=== PATIENT | male | born 1960 | race Caucasian/White ===

== ENCOUNTER → 2017-01-12 | Outpatient (CLI) | payer MEDICARE, BC ==
[2017-01-12 08:50] LABS: Basophils % (A) 1 %; CH 31.8; Eosinophils # (A) 0.1 k/uL (0-0.7); Eosinophils % (A) 2 %; HCT 41.7 % (39.0-53.0); HDW 3.01; HGB 13.8 gm/dL (13.0-17.5); Luc # (Auto) 0.12; Luc % (Auto) 2; Lymphocytes # (A) 1.2 k/uL (1.0-4.8); Lymphocytes % (A) 24 %; MCH 31.3 pg (25.0-35.0); MCHC 33.2 g/dL (31.0-37.0); MCV 94.3 fL (80.0-100.0); Mean Platelet Volume 8.3; Monocytes # (A) 0.3 k/uL (0-1.0); Monocytes % (A) 6 %; Neutrophils # (A) 3.2 k/uL (1.3-7.7); Neutrophils % (A) 64 %; RBC 4.42 m/uL (4.30-5.90); RDW 15.3 % (11.5-15.5)
[2017-01-12 09:36] LABS: Appearance,Urine Clear (Clear); Bilirubin,Urine Negative (Negative); Glucose,Urine (UA) Negative (Negative); Ketones,Urine Negative (Negative); Leukocyte Esterase,Urine Negative (Negative); Mucus,Urine Rare /hpf; Nitrite,Urine Negative (Negative); Particle Count 612; Protein,Urine 1+ (Negative); RBC,Urine <1 /hpf (0-5); Specific Gravity,Urine 1.009 (1.001-1.035); UA Billing (MACRO vs. MICRO) MICRO; Urobilinogen,Urine <2.0 mg/dL (<2.0); WBC,Urine <1 /hpf (0-5)
[2017-01-12 11:26] LABS: Calcium 9.8 mg/dL (8.4-10.2); Magnesium 1.8 mg/dL (1.6-2.3); Phosphorous 4.4 mg/dL (2.5-4.5); Potassium 4.7 mmol/L (3.5-5.1); Uric Acid 5.5 mg/dL (3.5-8.5)
[2017-01-12 11:37] LABS: % Iron Saturation 33.5 % (20-50)
== END | disposition home or self-care (01) ==
LOC: LABWHC1 07:34
PROVIDERS: ATTEND Internal Medicine Nephrology
DX: N18.4 Chronic kidney disease, stage 4 (severe) (principal); D63.1 Anemia in chronic kidney disease; E55.9 Vitamin D deficiency, unspecified; E21.3 Hyperparathyroidism, unspecified; M10.9 Gout, unspecified; N39.0 Urinary tract infection, site not specified
CPT/HCPCS: 36415; 80048; 81001; 82306; 82728; 83540; 83550; 83735; 83970; 84100; 84550; 85025

== ENCOUNTER → 2017-07-24 | Outpatient (CLI) | payer MEDICARE, BC ==
[2017-07-24 09:15] LABS: Basophils % (A) 0 %; Eosinophils # (A) 0.2 k/uL (0-0.7); Eosinophils % (A) 3 %; HCT 44.4 % (39.0-53.0); HGB 14.1 gm/dL (13.0-17.5); Lymphocytes # (A) 1.1 k/uL (1.0-4.8); Lymphocytes % (A) 18 %; MCH 30.3 pg (25.0-35.0); MCHC 31.6 g/dL (31.0-37.0); MCV 95.8 fL (80.0-100.0); Mean Platelet Volume 7.6; Monocytes # (A) 0.3 k/uL (0-1.0); Monocytes % (A) 5 %; Neutrophils # (A) 4.2 k/uL (1.3-7.7); Neutrophils % (A) 72 %; Platelet Count 156 k/uL (150-450); RBC 4.64 m/uL (4.30-5.90); RDW 14.2 % (11.5-15.5); WBC 5.9 k/uL (3.8-10.6)
[2017-07-24 09:30] LABS: Calcium 10.5 mg/dL (8.4-10.2); Magnesium 1.7 mg/dL (1.6-2.3); Phosphorus 4.5 mg/dL (2.5-4.5); Potassium 5.3 mmol/L (3.5-5.1)
[2017-07-24 09:37] LABS: Appearance,Urine Clear (Clear); Bilirubin,Urine Negative (Negative); Blood,Urine Negative (Negative); Color,Urine Light Yellow; Glucose,Urine (UA) Negative (Negative); Ketones,Urine Negative (Negative); Leukocyte Esterase,Urine Negative (Negative); Nitrite,Urine Negative (Negative); Protein,Urine 1+ (Negative); Specific Gravity,Urine 1.006 (1.001-1.035); Urobilinogen,Urine <2.0 mg/dL (<2.0)
[2017-07-24 11:59] LABS: Collection Time,Urine 24 hrs; Total Volume 24 Hour,Urine 2050 mls (800-1800)
[2017-07-24 13:36] LABS: Total Protein 24 Hour,Urine 2973 mg/24hr (42.0-225.0)
[2017-07-24 16:24] LABS: Iron Saturation 25.91 (15.00-50.00)
[2017-07-24 16:33] LABS: Vitamin D 25 Hydroxy 36.8 ng/mL (30.0-100.0)
[2017-07-24 16:46] LABS: Parathyroid Hormone Intact 29.8 pg/mL (14.0-72.0)
== END | disposition home or self-care (01) ==
LOC: LABWHC1 08:34
PROVIDERS: ATTEND Internal Medicine Nephrology
DX: E55.9 Vitamin D deficiency, unspecified (principal); E21.3 Hyperparathyroidism, unspecified; M10.9 Gout, unspecified; N18.4 Chronic kidney disease, stage 4 (severe); D63.1 Anemia in chronic kidney disease; R80.9 Proteinuria, unspecified
CPT/HCPCS: 36415; 80048; 81001; 81050; 82306; 82728; 83540; 83550; 83735; 83970; 84100; 84156; 84550; 85025

== ENCOUNTER → 2017-08-31 | Outpatient (CLI) | payer MEDICARE, BC ==
[2017-08-31 08:56] LABS: Calcium 9.5 mg/dL (8.4-10.2); Potassium 4.9 mmol/L (3.5-5.1)
== END | disposition home or self-care (01) ==
LOC: LABWHC1 07:45
PROVIDERS: ATTEND Internal Medicine Nephrology
DX: N18.4 Chronic kidney disease, stage 4 (severe) (principal)
CPT/HCPCS: 36415; 80048

== ENCOUNTER → 2017-10-23 | Outpatient (CLI) | payer MEDICARE, BC ==
[2017-10-23 08:26] LABS: Basophils % (A) 1 %; Eosinophils # (A) 0.2 k/uL (0-0.7); Eosinophils % (A) 3 %; HGB 13.2 gm/dL (13.0-17.5); Lymphocytes % (A) 19 %; MCH 30.5 pg (25.0-35.0); MCHC 33.9 g/dL (31.0-37.0); MCV 89.8 fL (80.0-100.0); Mean Platelet Volume 7.7; Monocytes # (A) 0.3 k/uL (0-1.0); Monocytes % (A) 5 %; Neutrophils # (A) 3.7 k/uL (1.3-7.7); Neutrophils % (A) 70 %; Platelet Count 163 k/uL (150-450); RBC 4.34 m/uL (4.30-5.90); RDW 14.7 % (11.5-15.5); WBC 5.3 k/uL (3.8-10.6)
[2017-10-23 08:42] LABS: Appearance,Urine Clear (Clear); Bilirubin,Urine Negative (Negative); Blood,Urine Negative (Negative); Color,Urine Light Yellow; Glucose,Urine (UA) Negative (Negative); Ketones,Urine Negative (Negative); Leukocyte Esterase,Urine Negative (Negative); Mucus,Urine Rare /hpf; Nitrite,Urine Negative (Negative); PH, Urine 6.5 (5.0-8.0); Protein,Urine 2+ (Negative); RBC,Urine 1 /hpf (0-5); Specific Gravity,Urine 1.009 (1.001-1.035); Urobilinogen,Urine <2.0 mg/dL (<2.0)
[2017-10-23 08:47] LABS: Albumin 3.9 g/dL (3.5-5.0); Calcium 9.3 mg/dL (8.4-10.2); Phosphorus 3.7 mg/dL (2.5-4.5); Potassium 5.1 mmol/L (3.5-5.1); Uric Acid 5.4 mg/dL (3.5-8.5)
[2017-10-23 16:18] LABS: Iron Saturation 25.74 (15.00-50.00)
[2017-10-23 16:27] LABS: Vitamin D 25 Hydroxy 36.6 ng/mL (30.0-100.0)
[2017-10-23 18:50] LABS: Hemoglobin A1C 6.8 % (4.0-6.0)
== END | disposition home or self-care (01) ==
LOC: LABWHC1 07:54
PROVIDERS: ATTEND Internal Medicine Nephrology
DX: M10.9 Gout, unspecified (principal); D64.9 Anemia, unspecified; E55.9 Vitamin D deficiency, unspecified; E11.40 Type 2 diabetes mellitus with diabetic neuropathy, unspecified; E11.22 Type 2 diabetes mellitus with diabetic chronic kidney disease; N18.4 Chronic kidney disease, stage 4 (severe)
CPT/HCPCS: 36415; 80048; 81001; 82040; 82306; 82728; 83036; 83540; 83550; 83735; 83970; 84100; 84443; 84550; 85025

== ENCOUNTER → 2018-03-08 | Outpatient (CLI) | payer MEDICARE, BC ==
[2018-03-08 10:31] LABS: Appearance,Urine Clear (Clear); Bilirubin,Urine Negative (Negative); Blood,Urine Negative (Negative); Color,Urine Light Yellow; Glucose,Urine (UA) Negative (Negative); Ketones,Urine Negative (Negative); Leukocyte Esterase,Urine Negative (Negative); Mucus,Urine Rare /hpf; Nitrite,Urine Negative (Negative); Protein,Urine 2+ (Negative); RBC,Urine <1 /hpf (0-5); Specific Gravity,Urine 1.008 (1.001-1.035); Urobilinogen,Urine <2.0 mg/dL (<2.0); WBC,Urine <1 /hpf (0-5)
[2018-03-08 10:42] LABS: Basophils % (A) 1 %; Calcium 9.6 mg/dL (8.4-10.2); Eosinophils # (A) 0.2 k/uL (0-0.7); Eosinophils % (A) 4 %; HCT 44.1 % (39.0-53.0); Lymphocytes # (A) 0.9 k/uL (1.0-4.8); Lymphocytes % (A) 17 %; MCH 29.6 pg (25.0-35.0); MCHC 31.7 g/dL (31.0-37.0); MCV 93.4 fL (80.0-100.0); Mean Platelet Volume 7.7; Monocytes # (A) 0.3 k/uL (0-1.0); Monocytes % (A) 5 %; Neutrophils % (A) 73 %; Platelet Count 146 k/uL (150-450); RBC 4.71 m/uL (4.30-5.90); RDW 14.7 % (11.5-15.5); Uric Acid 5.9 mg/dL (3.5-8.5); WBC 5.6 k/uL (3.8-10.6)
[2018-03-08 16:19] LABS: Iron Saturation 31.37 (15.00-50.00)
[2018-03-08 16:26] LABS: Vitamin D 25 Hydroxy 29.8 ng/mL (30.0-100.0)
== END | disposition home or self-care (01) ==
LOC: LABWHC1 09:07
PROVIDERS: ATTEND Internal Medicine
DX: N39.0 Urinary tract infection, site not specified (principal); N18.3 Chronic kidney disease, stage 3 (moderate); D63.1 Anemia in chronic kidney disease; M10.9 Gout, unspecified; N25.81 Secondary hyperparathyroidism of renal origin
CPT/HCPCS: 36415; 80048; 81001; 82040; 82306; 82728; 83540; 83550; 83735; 83970; 84100; 84550; 85025

== ENCOUNTER → 2018-07-13 | Outpatient (CLI) | payer MEDICARE, BC ==
[2018-07-13 11:24] LABS: Basophils % (A) 0 %; Eosinophils # (A) 0.1 k/uL (0-0.7); Eosinophils % (A) 2 %; HCT 44.7 % (39.0-53.0); HGB 14.7 gm/dL (13.0-17.5); Lymphocytes # (A) 0.9 k/uL (1.0-4.8); Lymphocytes % (A) 14 %; MCH 30.6 pg (25.0-35.0); MCHC 32.9 g/dL (31.0-37.0); MCV 92.9 fL (80.0-100.0); Mean Platelet Volume 7.7; Monocytes # (A) 0.3 k/uL (0-1.0); Monocytes % (A) 5 %; Neutrophils # (A) 4.7 k/uL (1.3-7.7); Neutrophils % (A) 76 %; Platelet Count 167 k/uL (150-450); RBC 4.81 m/uL (4.30-5.90); RDW 14.4 % (11.5-15.5); WBC 6.2 k/uL (3.8-10.6)
[2018-07-13 12:04] LABS: Appearance,Urine Clear (Clear); Bilirubin,Urine Negative (Negative); Blood,Urine Trace (Negative); Color,Urine Yellow; Glucose,Urine (UA) 1+ (Negative); Granular Casts,Urine 3 /lpf (0); Ketones,Urine Negative (Negative); Leukocyte Esterase,Urine Negative (Negative); Mucus,Urine Rare /hpf; Nitrite,Urine Negative (Negative); Protein,Urine 3+ (Negative); RBC,Urine 1 /hpf (0-5); Specific Gravity,Urine 1.011 (1.001-1.035); Sperm,Urine Rare /hpf; Urobilinogen,Urine <2.0 mg/dL (<2.0); WBC,Urine 1 /hpf (0-5)
[2018-07-13 16:26] LABS: Phosphorus 3.5 mg/dL (2.4-5.1)
[2018-07-13 16:34] LABS: Iron Saturation 25.78 (15.00-50.00)
[2018-07-13 16:37] LABS: Anion Gap 10.7 mmol/L (4.00-12.00); Calcium 9.4 mg/dL (8.7-10.3); Carbon Dioxide 22.3 mmol/L (21.6-31.8); Potassium 4.7 mmol/L (3.5-5.5)
[2018-07-13 16:38] LABS: Albumin 4.3 g/dL (3.80-4.90); Magnesium 1.9 mg/dL (1.5-2.4)
[2018-07-13 16:43] LABS: Vitamin D 25 Hydroxy 25.7 ng/mL (30.0-100.0)
[2018-07-13 16:49] LABS: Parathyroid Hormone Intact 179.9 pg/mL (14.0-72.0)
[2018-07-14 02:58] LABS: Creatinine,Urine Random 66.2 mg/dL
[2018-07-14 04:11] LABS: Total Protein,Urine Random 362.7 mg/dL (0.0-13.5)
== END | disposition home or self-care (01) ==
LOC: LABWHC1 10:44
PROVIDERS: ATTEND Internal Medicine Nephrology
DX: N18.3 Chronic kidney disease, stage 3 (moderate) (principal); D63.1 Anemia in chronic kidney disease; N39.0 Urinary tract infection, site not specified; M10.9 Gout, unspecified; E55.9 Vitamin D deficiency, unspecified; N25.81 Secondary hyperparathyroidism of renal origin
CPT/HCPCS: 36415; 80048; 81001; 82040; 82306; 82570; 82728; 83540; 83550; 83735; 83970; 84100; 84156; 84550; 85025

== ENCOUNTER → 2018-10-13 | Outpatient (CLI) | payer MEDICARE, BC ==
[2018-10-13 12:08] LABS: Basophils % (A) 0 %; Eosinophils # (A) 0.2 k/uL (0-0.7); Eosinophils % (A) 3 %; HCT 41.7 % (39.0-53.0); HGB 13.7 gm/dL (13.0-17.5); Lymphocytes % (A) 16 %; MCH 30.7 pg (25.0-35.0); MCHC 32.8 g/dL (31.0-37.0); MCV 93.5 fL (80.0-100.0); Mean Platelet Volume 7.4; Monocytes # (A) 0.3 k/uL (0-1.0); Monocytes % (A) 5 %; Neutrophils # (A) 4.6 k/uL (1.3-7.7); Neutrophils % (A) 74 %; Platelet Count 177 k/uL (150-450); RBC 4.46 m/uL (4.30-5.90); RDW 14.6 % (11.5-15.5); WBC 6.3 k/uL (3.8-10.6)
[2018-10-13 12:48] LABS: Appearance,Urine Clear (Clear); Bacteria,Urine Rare /hpf; Bilirubin,Urine Negative (Negative); Blood,Urine Trace (Negative); Color,Urine Light Yellow; Glucose,Urine (UA) 1+ (Negative); Ketones,Urine Negative (Negative); Leukocyte Esterase,Urine Negative (Negative); Mucus,Urine Rare /hpf; Nitrite,Urine Negative (Negative); Protein,Urine 2+ (Negative); RBC,Urine 1 /hpf (0-5); Specific Gravity,Urine 1.013 (1.001-1.035); Squamous Epithelial Cell,Urine <1 /hpf (0-4); Urobilinogen,Urine <2.0 mg/dL (<2.0); WBC,Urine <1 /hpf (0-5)
[2018-10-13 18:18] LABS: Iron Saturation 27.05 (15.00-50.00)
[2018-10-13 18:20] LABS: Albumin 4.1 g/dL (3.80-4.90); Anion Gap 12.5 mmol/L (4.00-12.00); Calcium 9.1 mg/dL (8.7-10.3); Carbon Dioxide 17.5 mmol/L (21.6-31.8); Magnesium 1.8 mg/dL (1.5-2.4); Phosphorus 3.6 mg/dL (2.4-5.1); Potassium 5.1 mmol/L (3.5-5.5); Uric Acid 5.2 mg/dL (3.7-8.7)
[2018-10-13 21:01] LABS: Creatinine,Urine Random 45.4 mg/dL
[2018-10-13 21:07] LABS: Total Protein,Urine Random 223.2 mg/dL (0.0-13.5)
== END | disposition home or self-care (01) ==
LOC: LABWHC1 10:44
PROVIDERS: ATTEND Internal Medicine Nephrology
DX: E55.9 Vitamin D deficiency, unspecified (principal); N18.3 Chronic kidney disease, stage 3 (moderate); D63.1 Anemia in chronic kidney disease; N39.0 Urinary tract infection, site not specified; M10.9 Gout, unspecified; N25.81 Secondary hyperparathyroidism of renal origin
CPT/HCPCS: 36415; 80048; 81001; 82040; 82306; 82570; 82728; 83540; 83550; 83735; 83970; 84100; 84156; 84550; 85025

== ENCOUNTER → 2018-11-25 | Outpatient (CLI) | payer MEDICARE, BC ==
[2018-11-25 11:54] LABS: LDL Cholesterol,Calculated 214.4 mg/dL (0.0-131.0); VLDL Calculation 32.6 mg/dL (5.00-40.00)
[2018-11-25 12:17] LABS: Hemoglobin A1C 7.9 % (4.0-6.0)
== END | disposition home or self-care (01) ==
LOC: LABWHC1 07:36
PROVIDERS: ATTEND Internal Medicine Cardiovascular Disease
DX: E78.2 Mixed hyperlipidemia (principal)
CPT/HCPCS: 36415; 80061; 83036; 84450; 84460

== ENCOUNTER → 2019-02-23 | Outpatient (CLI) | payer MEDICARE, BC ==
[2019-02-23 10:21] LABS: Appearance,Urine Clear (Clear); Basophils # (A) 0.1 k/uL (0-0.2); Basophils % (A) 1 %; Bilirubin,Urine Negative (Negative); Blood,Urine Trace (Negative); Color,Urine Light Yellow; Eosinophils # (A) 0.2 k/uL (0-0.7); Eosinophils % (A) 3 %; Glucose,Urine (UA) Trace (Negative); HCT 39.4 % (39.0-53.0); HGB 12.6 gm/dL (13.0-17.5); Ketones,Urine Negative (Negative); Leukocyte Esterase,Urine Negative (Negative); Lymphocytes # (A) 0.8 k/uL (1.0-4.8); Lymphocytes % (A) 14 %; MCH 30.7 pg (25.0-35.0); Mean Platelet Volume 7.2; Monocytes # (A) 0.3 k/uL (0-1.0); Monocytes % (A) 5 %; Mucus,Urine Rare /hpf; Neutrophils # (A) 4.1 k/uL (1.3-7.7); Neutrophils % (A) 75 %; Nitrite,Urine Negative (Negative); Platelet Count 144 k/uL (150-450); Protein,Urine 2+ (Negative); RBC,Urine <1 /hpf (0-5); RDW 14.9 % (11.5-15.5); Specific Gravity,Urine 1.011 (1.001-1.035); Sperm,Urine Rare /hpf; Urobilinogen,Urine <2.0 mg/dL (<2.0); WBC 5.5 k/uL (3.8-10.6); WBC,Urine <1 /hpf (0-5)
[2019-02-23 16:55] LABS: Iron Saturation 39.42 (15.00-50.00)
[2019-02-23 17:04] LABS: Vitamin D 25 Hydroxy 35.7 ng/mL (30.0-100.0)
[2019-02-23 17:20] LABS: African American GFR (CKD) 28.4 (60.0-200.0); Albumin 3.9 g/dL (3.80-4.90); Anion Gap 7.9 mmol/L (4.00-12.00); BUN/Creat Ratio 15.93 Ratio (12.00-20.00); Calcium 8.9 mg/dL (8.7-10.3); Carbon Dioxide 20.1 mmol/L (21.6-31.8); Magnesium 1.8 mg/dL (1.5-2.4); Phosphorus 3.3 mg/dL (2.4-5.1); Potassium 5.1 mmol/L (3.5-5.5); Uric Acid 4.9 mg/dL (3.7-8.7)
[2019-02-23 18:37] LABS: Creatinine,Urine Random 56.6 mg/dL
[2019-02-23 18:39] LABS: Total Protein,Urine Random 177.6 mg/dL (0.0-13.5)
== END | disposition home or self-care (01) ==
LOC: LABWHC1 09:19
PROVIDERS: ATTEND Internal Medicine Nephrology
DX: M10.9 Gout, unspecified (principal); N39.0 Urinary tract infection, site not specified; D64.9 Anemia, unspecified; N25.81 Secondary hyperparathyroidism of renal origin; N18.3 Chronic kidney disease, stage 3 (moderate); R80.9 Proteinuria, unspecified
CPT/HCPCS: 36415; 80048; 81001; 82040; 82306; 82570; 82728; 83540; 83550; 83735; 83970; 84100; 84156; 84550; 85025

== ENCOUNTER → 2019-04-28 | Outpatient (CLI) | payer MEDICARE, BC ==
[2019-04-28 10:42] LABS: HCT 41.4 % (39.0-53.0); HGB 13.5 gm/dL (13.0-17.5); MCH 30.9 pg (25.0-35.0); MCHC 32.6 g/dL (31.0-37.0); MCV 94.8 fL (80.0-100.0); Mean Platelet Volume 7.5; Platelet Count 161 k/uL (150-450); RBC 4.36 m/uL (4.30-5.90); RDW 13.9 % (11.5-15.5); WBC 6.3 k/uL (3.8-10.6)
[2019-04-28 10:56] LABS: Appearance,Urine Clear (Clear); Bilirubin,Urine Negative (Negative); Blood,Urine Trace (Negative); Color,Urine Light Yellow; Glucose,Urine (UA) Negative (Negative); Ketones,Urine Negative (Negative); Leukocyte Esterase,Urine Negative (Negative); Mucus,Urine Rare /hpf; Nitrite,Urine Negative (Negative); Protein,Urine 2+ (Negative); RBC,Urine 1 /hpf (0-5); Specific Gravity,Urine 1.012 (1.001-1.035); Urobilinogen,Urine <2.0 mg/dL (<2.0); WBC,Urine 1 /hpf (0-5)
[2019-04-28 17:35] LABS: Ferritin 191.1 ng/mL (22.0-322.0)
[2019-04-28 18:27] LABS: % Iron Saturation 32.16 (15.00-50.00); African American GFR (CKD) 31.2 (60.0-200.0); BUN/Creat Ratio 17.2 Ratio (12.00-20.00); Calcium 8.9 mg/dL (8.7-10.3); Magnesium 1.8 mg/dL (1.5-2.4); Phosphorus 3.7 mg/dL (2.4-5.1)
== END | disposition home or self-care (01) ==
LOC: LABWHC1 08:32
PROVIDERS: ATTEND Internal Medicine Nephrology
DX: N39.0 Urinary tract infection, site not specified (principal); E55.9 Vitamin D deficiency, unspecified; N25.81 Secondary hyperparathyroidism of renal origin; D63.1 Anemia in chronic kidney disease; N18.3 Chronic kidney disease, stage 3 (moderate)
CPT/HCPCS: 36415; 80048; 81001; 82306; 82728; 83540; 83550; 83735; 83970; 84100; 85027

== ENCOUNTER → 2019-11-16 | Outpatient (CLI) | payer MEDICARE, BC ==
[2019-11-16 11:01] LABS: Basophils % (A) 0 %; Eosinophils # (A) 0.1 k/uL (0-0.7); Eosinophils % (A) 2 %; HGB 13.5 gm/dL (13.0-17.5); Lymphocytes # (A) 0.9 k/uL (1.0-4.8); Lymphocytes % (A) 15 %; MCH 31.9 pg (25.0-35.0); MCHC 32.2 g/dL (31.0-37.0); Macrocytosis Slight; Mean Platelet Volume 8.1; Monocytes # (A) 0.3 k/uL (0-1.0); Monocytes % (A) 5 %; Neutrophils # (A) 4.2 k/uL (1.3-7.7); Neutrophils % (A) 75 %; Platelet Count 154 k/uL (150-450); RBC 4.24 m/uL (4.30-5.90); RDW 14.6 % (11.5-15.5); WBC 5.6 k/uL (3.8-10.6)
[2019-11-16 11:11] LABS: Appearance,Urine Clear (Clear); Bilirubin,Urine Negative (Negative); Blood,Urine Trace (Negative); Color,Urine Light Yellow; Glucose,Urine (UA) 1+ (Negative); Hyaline Casts,Urine 3 /lpf (0-2); Ketones,Urine Negative (Negative); Leukocyte Esterase,Urine Negative (Negative); Mucus,Urine Rare /hpf; Nitrite,Urine Negative (Negative); Protein,Urine 3+ (Negative); RBC,Urine <1 /hpf (0-5); Specific Gravity,Urine 1.012 (1.001-1.035); Urobilinogen,Urine <2.0 mg/dL (<2.0); WBC,Urine 1 /hpf (0-5)
[2019-11-16 11:28] LABS: Protein/Creatinine Ratio,Urine 4.479
[2019-11-16 18:13] LABS: % Iron Saturation 33.83 (15.00-50.00); African American GFR (CKD) 25.9 (60.0-200.0); Albumin 3.8 g/dL (3.80-4.90); Anion Gap 8.9 mmol/L (4.00-12.00); BUN/Creat Ratio 14.14 Ratio (12.00-20.00); Calcium 8.9 mg/dL (8.7-10.3); Carbon Dioxide 20.1 mmol/L (21.6-31.8); Magnesium 1.8 mg/dL (1.5-2.4); Non-African American GFR(CKD) 22.3 (60.0-200.0); Phosphorus 3.8 mg/dL (2.4-5.1); Potassium 4.7 mmol/L (3.5-5.5); Uric Acid 5.3 mg/dL (3.7-8.7)
[2019-11-16 18:23] LABS: Ferritin 189.7 ng/mL (22.0-322.0)
== END | disposition home or self-care (01) ==
LOC: LABWHC1 10:12
PROVIDERS: ATTEND Internal Medicine Nephrology
DX: N25.81 Secondary hyperparathyroidism of renal origin (principal); E55.9 Vitamin D deficiency, unspecified; N18.4 Chronic kidney disease, stage 4 (severe); D63.1 Anemia in chronic kidney disease; M10.9 Gout, unspecified; N39.0 Urinary tract infection, site not specified; R80.9 Proteinuria, unspecified
CPT/HCPCS: 36415; 80048; 81001; 82040; 82306; 82570; 82728; 83540; 83550; 83735; 83970; 84100; 84156; 84550; 85025

== ENCOUNTER → 2020-02-06 | Outpatient (CLI) | payer MEDICARE, BC ==
[2020-02-06 15:31] LABS: African American GFR (CKD) 28.2 (60.0-200.0); Albumin/Globulin Ratio 1.82 (1.60-3.17); Anion Gap 10.2 mmol/L (4.00-12.00); BUN/Creat Ratio 17.78 Ratio (12.00-20.00); Calcium 9.2 mg/dL (8.7-10.3); Carbon Dioxide 19.8 mmol/L (21.6-31.8); Globulin 2.2 g/dL (1.6-3.3); Non-African American GFR(CKD) 24.3 (60.0-200.0); Potassium 5.6 mmol/L (3.5-5.5); Total Bilirubin 0.4 mg/dL (0.3-1.2); Total Protein 6.2 g/dL (6.2-8.2)
[2020-02-06 17:47] LABS: Hemoglobin A1C 7.1 % (4.0-6.0)
== END | disposition home or self-care (01) ==
LOC: LABWHC1 09:37
PROVIDERS: ATTEND Internal Medicine Nephrology
DX: N18.4 Chronic kidney disease, stage 4 (severe) (principal); E11.319 Type 2 diabetes mellitus with unspecified diabetic retinopathy without macular edema
CPT/HCPCS: 36415; 80053; 83036

== ENCOUNTER → 2020-02-14 | Outpatient (CLI) | payer MEDICARE, BC | END | disposition home or self-care (01) | LOC: LABWHC1 07:11 | PROVIDERS: ATTEND Nurse Practitioner Family | DX: E87.5 Hyperkalemia (principal) | CPT/HCPCS: 36415; 84132 ==

== ENCOUNTER → 2020-05-24 | Outpatient (CLI) | payer MEDICARE, BC ==
[2020-05-24 13:22] LABS: Basophils % (A) 1 %; Eosinophils # (A) 0.2 k/uL (0-0.7); Eosinophils % (A) 3 %; HCT 37.1 % (39.0-53.0); Lymphocytes # (A) 0.9 k/uL (1.0-4.8); Lymphocytes % (A) 15 %; MCH 31.3 pg (25.0-35.0); MCHC 32.2 g/dL (31.0-37.0); MCV 97.3 fL (80.0-100.0); Mean Platelet Volume 8.1; Monocytes # (A) 0.3 k/uL (0-1.0); Monocytes % (A) 4 %; Neutrophils # (A) 4.8 k/uL (1.3-7.7); Neutrophils % (A) 76 %; Platelet Count 156 k/uL (150-450); RBC 3.82 m/uL (4.30-5.90); RDW 14.7 % (11.5-15.5); WBC 6.4 k/uL (3.8-10.6)
[2020-05-24 13:26] LABS: Appearance,Urine Clear (Clear); Bilirubin,Urine Negative (Negative); Blood,Urine Trace (Negative); Color,Urine Light Yellow; Glucose,Urine (UA) 2+ (Negative); Ketones,Urine Negative (Negative); Leukocyte Esterase,Urine Negative (Negative); Mucus,Urine Rare /hpf; Nitrite,Urine Negative (Negative); PH, Urine 5.5 (5.0-8.0); Protein,Urine 2+ (Negative); RBC,Urine 1 /hpf (0-5); Specific Gravity,Urine 1.011 (1.001-1.035); Squamous Epithelial Cell,Urine <1 /hpf (0-4); Urobilinogen,Urine <2.0 mg/dL (<2.0); WBC,Urine <1 /hpf (0-5)
[2020-05-24 13:56] LABS: Protein/Creatinine Ratio,Urine 3.157
[2020-05-24 20:04] LABS: % Iron Saturation 20.44 (15.00-50.00); African American GFR (CKD) 23.9 (60.0-200.0); Albumin 4.1 g/dL (3.80-4.90); Anion Gap 9.7 mmol/L (4.00-12.00); BUN/Creat Ratio 19.68 Ratio (12.00-20.00); Carbon Dioxide 21.3 mmol/L (21.6-31.8); Non-African American GFR(CKD) 20.6 (60.0-200.0); Phosphorus 4.1 mg/dL (2.4-5.1); Potassium 4.6 mmol/L (3.5-5.5); Uric Acid 5.3 mg/dL (3.7-8.7)
[2020-05-24 20:12] LABS: Ferritin 191.1 ng/mL (22.0-322.0)
== END | disposition home or self-care (01) ==
LOC: LABWHC1 12:15
PROVIDERS: ATTEND Internal Medicine Nephrology
DX: N18.4 Chronic kidney disease, stage 4 (severe) (principal); N25.81 Secondary hyperparathyroidism of renal origin; E55.9 Vitamin D deficiency, unspecified; M10.9 Gout, unspecified; D63.1 Anemia in chronic kidney disease; R80.9 Proteinuria, unspecified; N39.0 Urinary tract infection, site not specified
CPT/HCPCS: 36415; 80048; 81001; 82040; 82306; 82570; 82728; 83540; 83550; 83735; 83970; 84100; 84156; 84550; 85025

== ENCOUNTER → 2020-06-11 | Outpatient (CLI) | payer MEDICARE, BC ==
[2020-06-11 17:06] LABS: African American GFR (CKD) 22.1 (60.0-200.0); Albumin 4.2 g/dL (3.80-4.90); Albumin/Globulin Ratio 2.1 (1.60-3.17); BUN/Creat Ratio 18.18 Ratio (12.00-20.00); Calcium 8.8 mg/dL (8.7-10.3); Non-African American GFR(CKD) 19.1 (60.0-200.0); Potassium 4.9 mmol/L (3.5-5.5); Total Bilirubin 0.3 mg/dL (0.2-1.2); Total Protein 6.2 g/dL (6.2-8.2)
== END | disposition home or self-care (01) ==
LOC: LABWHC1 09:51
PROVIDERS: ATTEND Internal Medicine Nephrology
DX: N18.4 Chronic kidney disease, stage 4 (severe) (principal)
CPT/HCPCS: 36415; 80053

== ENCOUNTER → 2020-07-03 | Outpatient (CLI) | payer MEDICARE, BC ==
--- NOTE | 2020-07-03 15:48 | US ---
EXAMINATION TYPE: US kidneys/renal and bladder DATE OF EXAM: 07/03/2020 COMPARISON: NONE CLINICAL HISTORY: N18.4 Stage 4. CKD stage 4 EXAM MEASUREMENTS: Right Kidney: 9.9 x 5.2 x 5.1 cm Left Kidney: 10.0 x 4.9 x 4.6 cm Right Kidney: no hydronephrosis or masses seen Left Kidney: no hydronephrosis or masses seen Bladder: wnl Bilateral Jets seen: no There is no ascites. Kidneys show some decreased cortical medullary differentiation. Suspect some inc reased cortical echogenicity IMPRESSION: Correlate for medical renal disease
== END | disposition home or self-care (01) ==
LOC: RADUSWWP 13:21
PROVIDERS: ATTEND Internal Medicine Nephrology
DX: N18.4 Chronic kidney disease, stage 4 (severe) (principal)
CPT/HCPCS: 76770

== ENCOUNTER → 2020-07-09 | Outpatient (CLI) | payer MEDICARE, BC ==
[2020-07-09 12:12] LABS: Basophils % (A) 0 %; Eosinophils # (A) 0.2 k/uL (0-0.7); Eosinophils % (A) 2 %; HCT 41.3 % (39.0-53.0); HGB 13.5 gm/dL (13.0-17.5); Lymphocytes % (A) 14 %; MCH 31.3 pg (25.0-35.0); MCHC 32.7 g/dL (31.0-37.0); MCV 95.5 fL (80.0-100.0); Mean Platelet Volume 7.8; Monocytes # (A) 0.3 k/uL (0-1.0); Monocytes % (A) 5 %; Neutrophils # (A) 5.5 k/uL (1.3-7.7); Neutrophils % (A) 78 %; Platelet Count 161 k/uL (150-450); RBC 4.33 m/uL (4.30-5.90); RDW 14.2 % (11.5-15.5); WBC 7.1 k/uL (3.8-10.6)
[2020-07-09 12:27] LABS: Appearance,Urine Clear (Clear); Bilirubin,Urine Negative (Negative); Blood,Urine Negative (Negative); Color,Urine Light Yellow; Glucose,Urine (UA) 1+ (Negative); Ketones,Urine Negative (Negative); Leukocyte Esterase,Urine Negative (Negative); Mucus,Urine Rare /hpf; Nitrite,Urine Negative (Negative); PH, Urine 5.5 (5.0-8.0); Protein,Urine 2+ (Negative); RBC,Urine 1 /hpf (0-5); Specific Gravity,Urine 1.011 (1.001-1.035); Urobilinogen,Urine <2.0 mg/dL (<2.0); WBC,Urine <1 /hpf (0-5)
[2020-07-09 12:40] LABS: Creatinine,Urine Random 50.6 mg/dL
[2020-07-09 12:52] LABS: Protein/Creatinine Ratio,Urine 4.387
[2020-07-09 21:06] LABS: Ferritin 238.7 ng/mL (22.0-322.0)
[2020-07-09 21:17] LABS: % Iron Saturation 24.32 (15.00-50.00); African American GFR (CKD) 23.9 (60.0-200.0); Albumin 4.5 g/dL (3.80-4.90); Albumin/Globulin Ratio 2.05 (1.60-3.17); BUN/Creat Ratio 17.1 Ratio (12.00-20.00); Calcium 9.1 mg/dL (8.7-10.3); Globulin 2.2 g/dL (1.6-3.3); Magnesium 2.1 mg/dL (1.5-2.4); Non-African American GFR(CKD) 20.6 (60.0-200.0); Phosphorus 3.7 mg/dL (2.4-5.1); Total Bilirubin 0.3 mg/dL (0.3-1.2); Total Protein 6.7 g/dL (6.2-8.2); Uric Acid 5.7 mg/dL (3.7-8.7)
== END | disposition home or self-care (01) ==
LOC: LABWHC1 10:27
PROVIDERS: ATTEND Internal Medicine Nephrology
DX: E55.9 Vitamin D deficiency, unspecified (principal); N25.81 Secondary hyperparathyroidism of renal origin; M10.9 Gout, unspecified; N39.0 Urinary tract infection, site not specified; D64.9 Anemia, unspecified; N18.4 Chronic kidney disease, stage 4 (severe); R80.9 Proteinuria, unspecified
CPT/HCPCS: 36415; 80053; 81001; 82306; 82570; 82728; 83540; 83550; 83735; 83970; 84100; 84156; 84550; 85025

== ENCOUNTER → 2020-09-04 | Outpatient (CLI) | payer MEDICARE, BC ==
[2020-09-04 09:11] LABS: Appearance,Urine Clear (Clear); Bilirubin,Urine Negative (Negative); Blood,Urine Negative (Negative); Color,Urine Light Yellow; Glucose,Urine (UA) Negative (Negative); Ketones,Urine Negative (Negative); Leukocyte Esterase,Urine Negative (Negative); Mucus,Urine Rare /hpf; Nitrite,Urine Negative (Negative); Protein,Urine 2+ (Negative); RBC,Urine 1 /hpf (0-5); Specific Gravity,Urine 1.009 (1.001-1.035); Urobilinogen,Urine <2.0 mg/dL (<2.0); WBC,Urine <1 /hpf (0-5)
[2020-09-04 09:45] LABS: Creatinine,Urine Random 61.6 mg/dL
[2020-09-04 09:56] LABS: Protein/Creatinine Ratio,Urine 3.653
[2020-09-04 15:16] LABS: Basophils # (A) 0.04 X 10*3/uL (0.00-0.10); Basophils % (A) 0.6 %; Eosinophils # (A) 0.29 X 10*3/uL (0.04-0.35); HCT 37.6 % (39.6-50.0); HGB 12.3 g/dL (13.0-17.0); Lymphocytes # (A) 0.92 X 10*3/uL (0.90-5.00); Lymphocytes % (A) 12.7 %; MCH 31.3 pg (27.0-32.0); MCHC 32.7 g/dL (32.0-37.0); MCV 95.7 fL (80.0-97.0); Mean Platelet Volume 11.9 fL (9.5-12.2); Monocytes # (A) 0.52 X 10*3/uL (0.20-1.00); Monocytes % (A) 7.2 %; Neutrophils # (A) 5.48 X 10*3/uL (1.80-7.70); Neutrophils % (A) 75.2 %; Platelet Count 182 X 10*3/uL (140-440); RBC 3.93 X 10*6/uL (4.40-5.60); RDW 13.8 % (11.5-14.5); WBC 7.27 X 10*3/uL (4.50-10.00)
[2020-09-04 16:11] LABS: % Iron Saturation 25.59 (15.00-50.00); African American GFR (CKD) 20.6 (60.0-200.0); Albumin 4.3 g/dL (3.80-4.90); Anion Gap 11.3 mmol/L (4.00-12.00); Calcium 9.5 mg/dL (8.7-10.3); Carbon Dioxide 24.7 mmol/L (21.6-31.8); Non-African American GFR(CKD) 17.8 (60.0-200.0); Phosphorus 4.8 mg/dL (2.4-5.1); Potassium 4.5 mmol/L (3.5-5.5); Uric Acid 6.3 mg/dL (3.7-8.7)
[2020-09-04 16:19] LABS: Ferritin 251.4 ng/mL (22.0-322.0)
== END | disposition home or self-care (01) ==
LOC: LABWHC1 08:15
PROVIDERS: ATTEND Internal Medicine Nephrology
DX: N18.4 Chronic kidney disease, stage 4 (severe) (principal); E55.9 Vitamin D deficiency, unspecified; D64.9 Anemia, unspecified; N39.0 Urinary tract infection, site not specified; R80.9 Proteinuria, unspecified; N25.81 Secondary hyperparathyroidism of renal origin; M10.9 Gout, unspecified
CPT/HCPCS: 36415; 80048; 81001; 82040; 82306; 82570; 82728; 83540; 83550; 83735; 83970; 84100; 84156; 84550; 85025

== ENCOUNTER → 2020-10-05 | Outpatient (CLI) | payer MEDICARE, BC ==
[2020-10-06 04:16] LABS: African American GFR (CKD) 18.7 (60.0-200.0); Anion Gap 13.4 mmol/L (4.00-12.00); Calcium 9.7 mg/dL (8.7-10.3); Carbon Dioxide 19.6 mmol/L (21.6-31.8); Non-African American GFR(CKD) 16.1 (60.0-200.0); Potassium 4.7 mmol/L (3.5-5.5)
== END | disposition home or self-care (01) ==
LOC: LABWHC1 11:31
PROVIDERS: ATTEND Internal Medicine Nephrology
DX: N18.4 Chronic kidney disease, stage 4 (severe) (principal)
CPT/HCPCS: 36415; 80048

== ENCOUNTER → 2020-10-26 | Outpatient (CLI) | payer MEDICARE, BC ==
[2020-10-26 09:57] LABS: Appearance,Urine Clear (Clear); Bilirubin,Urine Negative (Negative); Blood,Urine Trace (Negative); Color,Urine Yellow; Glucose,Urine (UA) 2+ (Negative); Hyaline Casts,Urine 1 /lpf (0-2); Ketones,Urine Negative (Negative); Leukocyte Esterase,Urine Negative (Negative); Mucus,Urine Rare /hpf; Nitrite,Urine Negative (Negative); PH, Urine 5.5 (5.0-8.0); Protein,Urine 2+ (Negative); RBC,Urine 1 /hpf (0-5); Specific Gravity,Urine 1.013 (1.001-1.035); Urobilinogen,Urine <2.0 mg/dL (<2.0); WBC,Urine 1 /hpf (0-5)
[2020-10-26 09:59] LABS: Protein/Creatinine Ratio,Urine 3.509
[2020-10-26 16:10] LABS: Basophils # (A) 0.04 X 10*3/uL (0.00-0.10); Basophils % (A) 0.5 %; Eosinophils # (A) 0.31 X 10*3/uL (0.04-0.35); HCT 37.6 % (39.6-50.0); HGB 12.3 g/dL (13.0-17.0); Lymphocytes # (A) 0.94 X 10*3/uL (0.90-5.00); Lymphocytes % (A) 12.1 %; MCH 31.2 pg (27.0-32.0); MCHC 32.7 g/dL (32.0-37.0); MCV 95.4 fL (80.0-97.0); Mean Platelet Volume 11.7 fL (9.5-12.2); Monocytes # (A) 0.61 X 10*3/uL (0.20-1.00); Monocytes % (A) 7.9 %; Neutrophils # (A) 5.82 X 10*3/uL (1.80-7.70); Neutrophils % (A) 75.2 %; Platelet Count 193 X 10*3/uL (140-440); RBC 3.94 X 10*6/uL (4.40-5.60); RDW 13.7 % (11.5-14.5); WBC 7.74 X 10*3/uL (4.50-10.00)
[2020-10-26 16:18] LABS: % Iron Saturation 23.86 (15.00-50.00); African American GFR (CKD) 18.7 (60.0-200.0); Albumin 4.1 g/dL (3.80-4.90); Anion Gap 12.6 mmol/L (4.00-12.00); BUN/Creat Ratio 19.74 Ratio (12.00-20.00); Carbon Dioxide 22.4 mmol/L (21.6-31.8); Non-African American GFR(CKD) 16.1 (60.0-200.0); Phosphorus 4.9 mg/dL (2.4-5.1); Potassium 4.2 mmol/L (3.5-5.5); Uric Acid 6.7 mg/dL (3.7-8.7)
[2020-10-26 16:26] LABS: Ferritin 275.4 ng/mL (22.0-322.0)
== END | disposition home or self-care (01) ==
LOC: LABWHC1 08:30
PROVIDERS: ATTEND Internal Medicine Nephrology
DX: N18.4 Chronic kidney disease, stage 4 (severe) (principal); N25.81 Secondary hyperparathyroidism of renal origin; M10.9 Gout, unspecified; N39.0 Urinary tract infection, site not specified; D64.9 Anemia, unspecified; E55.9 Vitamin D deficiency, unspecified
CPT/HCPCS: 36415; 80048; 81001; 82040; 82306; 82570; 82728; 83540; 83550; 83735; 83970; 84100; 84156; 84550; 85025

== ENCOUNTER 2020-11-15 11:24 | Day surgery (SDC) | payer MEDICARE, BC ==
[2020-11-13 15:19] VITALS: BMI 37.3
[~2020-11-15 11:24] MED LIST: ACETAMINOPHEN TAB 500 MG TAB PO PRN; HEPARIN SODIUM,PORCINE/PF 5,000 UNIT/0.5 ML SYRINGE SQ PRN
[2020-11-15] MEDS ORDERED: ONDANSETRON 4 MG/2 ML VIAL ONE (12:17)
[2020-11-15] MEDS ORDERED: LACTATED RINGERS 1,000 ML IV ONE (12:45)
[2020-11-15] MEDS ORDERED: LIDOCAINE 1% (10MG/ML) FOR IV START INTRADERMA ONE (12:45)
[2020-11-15 12:50] LABS: Glucose,Whole Blood 115 mg/dL (75-99)
[2020-11-15] MEDS ORDERED: MIDAZOLAM 2 MG/2 ML VIAL ONE (13:23)
[2020-11-15] MEDS ORDERED: SUCCINYLCHOLINE CHLORIDE 100 MG/5 ML SYR IV ONE (13:23)
[2020-11-15] MEDS ORDERED: LIDOCAINE 1% INJ 10MG/ML (20 ML MDV) ONE (13:23)
[2020-11-15] MEDS ORDERED: PROPOFOL 10 MG/ML 20 ML VIAL IV ONE (13:23)
[2020-11-15] MEDS ORDERED: fentaNYL (PF) 50 MCG/ML 2 ML AMP ONE (13:23)
[2020-11-15] MEDS ORDERED: PHENYLEPHRINE-0.9% NACL SYG 1,000 MCG/10 ML SYRINGE ONE (13:23)
[2020-11-15] MEDS ORDERED: MINERAL OIL 1 APPLIC/ML OIL TOPICAL ONE (14:10)
[2020-11-15] MEDS ORDERED: NALOXONE 0.4 MG/ML 1 ML VIAL IV PRN (14:24)
[2020-11-15] MEDS ORDERED: HYDROcodone/APAP 5-325MG 1 EACH TAB PO PRN (14:24)
--- NOTE | 2020-11-15 14:28 | P.OP ---
Date of Procedure: 11/15/20 Procedure(s) Performed: PREOPERATIVE DIAGNOSIS: Renal failure POSTOPERATIVE DIAGNOSIS: Same PROCEDURE: Peritoneal dialysis catheter insertion SURGEON: Luz EBL: Minimal ANESTHESIA: General COMPLICATIONS: None OPERATIVE PROCEDURE: The patient was placed in the operative table in the supine position. The abdomen was prepped and draped in usual sterile fashion. A small vertical incision was made in the right periumbilical location. Dissection down through the subcutaneous tissues took place using electrocautery. The anterior rectus was divided vertically using the scalpel. The rectus was bluntly. The posterior rectus was visualized. An 0 Vicryl pursestring was placed. A small opening in the posterior rectus fascia and peritoneum took place using a Metzenbaum scissors. There were no adhesions to the suture that was placed. The pigtail catheter was advanced into the pelvis over a stylette. No resistance was met. The inner cuff was secured to the fascia using the 0 Vicryl pursestring that was placed. The catheter was tunneled to an exit site in the right lateral lower quadrant. The catheter was connected to the 1 L bag of saline and approximated 800 mL of saline was easily introduced into the peritoneal cavity. The fluid was then allowed to evacuate. The majority of the fluid was returned. The anterior rectus fascia was then reapproximated using a running 0 Vicryl stitch. The subcutaneous tissues reprepped using 3-0 Vicryl sutures and the skin using 4-0 Monocryl sutures. The outpatient dialysis adapter was applied to the end of the catheter. Sterile dressings were then applied after skin glue was placed over the incision. DISPOSITION: Stable to recovery room
[2020-11-15 14:36] VITALS: TEMP 96.8
[2020-11-15 14:41] LABS: Glucose,Whole Blood 123 mg/dL (75-99)
[2020-11-15 14:45] VITALS: RESP 16
[2020-11-15] MEDS ORDERED: HYDROcodone/APAP 5-325MG 1 EACH TAB PO ONE (15:45)
[2020-11-15 15:57] VITALS: BP 132/83; PULSE 81
== END 2020-11-15 16:22 | disposition home or self-care (01) ==
LOC: OR 11:24
PROVIDERS: ATTEND Surgery
DX: N19 Unspecified kidney failure (principal); E78.5 Hyperlipidemia, unspecified; I48.91 Unspecified atrial fibrillation; E11.22 Type 2 diabetes mellitus with diabetic chronic kidney disease; E11.40 Type 2 diabetes mellitus with diabetic neuropathy, unspecified; Z98.84 Bariatric surgery status; Z98.890 Other specified postprocedural states; Z82.49 Family history of ischemic heart disease and other diseases of the circulatory system; Z91.030 Bee allergy status; Z79.01 Long term (current) use of anticoagulants; Z79.84 Long term (current) use of oral hypoglycemic drugs; Z79.82 Long term (current) use of aspirin; Z79.899 Other long term (current) drug therapy; Z88.8 Allergy status to other drugs, medicaments and biological substances; Z88.0 Allergy status to penicillin; Z91.041 Radiographic dye allergy status
CPT/HCPCS: 49421; C1752; J2250; J0690; J2405; J2001; J3010; J2370; J0330; J2704; J1644

== ENCOUNTER → 2020-11-19 | Outpatient (CLI) | payer MEDICARE, BC ==
[2020-11-19 19:50] LABS: Hepatitis A Antibody IgM Non-Reactive (Non-Reactive); Hepatitis B Core IgM Non-Reactive (Non-Reactive); Hepatitis B Surface AB- Quant <3.5 mIU/mL; Hepatitis B Surface Antibody Non-Reactive (Non-Reactive); Hepatitis B Surface Antigen Non-Reactive (Non-Reactive); Hepatitis C IgG Antibody Non-Reactive (Non-Reactive)
== END | disposition home or self-care (01) ==
LOC: LABWHC1 09:09
PROVIDERS: ATTEND Internal Medicine Nephrology
DX: Z20.822 Contact with and (suspected) exposure to COVID-19 (principal); N18.4 Chronic kidney disease, stage 4 (severe)
CPT/HCPCS: 36415; 80074; 86706; 86769; 86850; 86900; 86901

== ENCOUNTER → 2021-03-08 | Outpatient (CLI) | payer MEDICARE, BC | END | disposition home or self-care (01) | LOC: LABWHC1 08:31 | PROVIDERS: ATTEND Pathology Anatomic Pathology & Clinical Pathology | DX: Z53.9 Procedure and treatment not carried out, unspecified reason (principal) ==

== ENCOUNTER 2021-05-07 09:04 | Inpatient (IN) | payer MEDICARE, BC ==
[2021-05-07 09:45] LABS: Basophils % (A) 1 %; Eosinophils # (A) 0.2 k/uL (0-0.7); Eosinophils % (A) 4 %; HGB 10.8 gm/dL (13.0-17.5); Lymphocytes # (A) 0.8 k/uL (1.0-4.8); Lymphocytes % (A) 15 %; MCH 34.1 pg (25.0-35.0); MCHC 34.9 g/dL (31.0-37.0); MCV 97.7 fL (80.0-100.0); Macrocytosis Slight; Mean Platelet Volume 7.8; Monocytes # (A) 0.3 k/uL (0-1.0); Monocytes % (A) 5 %; Neutrophils % (A) 73 %; Platelet Count 173 k/uL (150-450); RBC 3.17 m/uL (4.30-5.90); RDW 15.3 % (11.5-15.5); WBC 5.5 k/uL (3.8-10.6)
--- NOTE | 2021-05-07 09:46 | ED ---
General Adult HPI - General Chief complaint: Recheck/Abnormal Lab/Rx Stated complaint: tunneled catheter problems Time Seen by Provider: 05/07/21 09:11 Source: patient, family, RN notes reviewed, old records reviewed Mode of arrival: wheelchair Limitations: no limitations - History of Present Illness Initial comments: 60-year-old male presents for evaluation of dislodged permacath. Patient is currently receiving hemodialysis. He received hemodialysis on Thursday and Thursday is his next scheduled appointment. Yesterday evening he had dislodged his permacath with minor bleeding. He was at dialysis this morning but this Was Nonfunctional. He Has a Nonfunctional Peritoneal Dialysis Catheter and Is Awaiting Reevaluation for This. He Is Status Post Intrarenal Hemorrhage, Recent CVA with Residual Right-Sided Weakness. Progression of Weakness. No Headache. He Is Scheduled for an Outpatient CT of the Brain to Reevaluate This Intrarenal Hemorrhage. - Related Data Home Medications Medication Instructions Recorded Confirmed Atorvastatin [Lipitor] 10 mg PO HS 11/13/20 05/07/21 Cholecalciferol [Vitamin D3 (25 50 mcg PO BID 11/13/20 05/07/21 Mcg = 1000 Iu)] Furosemide [Lasix] 40 mg PO BID 11/13/20 05/07/21 Gabapentin [Neurontin] 200 mg PO HS 11/13/20 05/07/21 Glimepiride [Amaryl] 1 mg PO BID 11/13/20 05/07/21 Omeprazole [PriLOSEC] 20 mg PO DAILY 11/13/20 05/07/21 allopurinoL [Zyloprim] 100 mg PO BID 11/13/20 05/07/21 atenoloL [Atenolol] 25 mg PO BID 11/13/20 05/07/21 calcitrioL [Calcitriol] 0.5 mcg PO MOWEFR 11/13/20 05/07/21 Acetaminophen Tab [Tylenol Tab] 1,000 mg PO Q4H PRN 05/07/21 05/07/21 Gabapentin [Neurontin] 100 mg PO DAILY@1200 PRN 05/07/21 05/07/21 Midodrine [ProAmatine] 5 mg PO BID PRN 05/07/21 05/07/21 Nitroglycerin Sl Tabs [Nitrostat] 0.4 mg SUBLINGUAL Q5M PRN 05/07/21 05/07/21 Sennosides [Senokot] 8.6 mg PO DAILY PRN 05/07/21 05/07/21 Tamsulosin HCl [Flomax] 0.4 mg PO HS 05/07/21 05/07/21 Vit B Complx C/Folic Acid/Zinc 1 tab PO DAILY 05/07/21 05/07/21 [Renaplex Tablet] Allergies Allergy/AdvReac Type Severity Reaction Status Date / Time aprepitant [From Emend] Allergy Swelling Verified 05/07/21 10:46 bee venom protein (honey bee) Allergy Anaphylaxis Verified 05/07/21 10:46 fosaprepitant [From Emend] Allergy Swelling Verified 05/07/21 10:46 iodine Allergy Swelling Verified 05/07/21 10:46 Penicillins Allergy Unknown Verified 05/07/21 10:46 Childhood Review of Systems ROS Statement: Those systems with pertinent positive or pertinent negative responses have been documented in the HPI. ROS Other: All systems not noted in ROS Statement are negative. Past Medical History Past Medical History: Atrial Fibrillation, Diabetes Mellitus, Eye Disorder, GERD/Reflux, Hyperlipidemia, Hypertension, Myocardial Infarction ([place]), Renal Disease, Sleep Apnea/CPAP/BIPAP Additional Past Medical History / Comment(s): LEGALLY BLIND W/DIABETIC RETINOPATHY. DIABETIC NEUROPATHY. GOUT. RENAL FAILURE Last Myocardial Infarction Date:: History of Any Multi-Drug Resistant Organisms: None Reported Past Surgical History: Bariatric Surgery Additional Past Surgical History / Comment(s): GASTRIC SLEEVE 03/2013. EGD Past Anesthesia/Blood Transfusion Reactions: No Reported Reaction Past Psychological History: No Psychological Hx Reported Smoking Status: Former smoker - Past Family History Mother Family Medical History: Cancer General Exam Limitations: no limitations General appearance: alert, in no apparent distress Head exam: Present: atraumatic, normocephalic Eye exam: Present: normal appearance, PERRL ENT exam: Present: normal exam Neck exam: Present: normal inspection. Absent: tenderness, meningismus Respiratory exam: Present: rhonchi. Absent: respiratory distress, wheezes Cardiovascular Exam: Present: regular rate, irregular rhythm GI/Abdominal exam: Present: soft. Absent: distended, tenderness, guarding Extremities exam: Present: normal inspection, normal capillary refill Neurological exam: Present: alert, oriented X3, motor sensory deficit (Right upper and lower extremity weakness, status post CVA baseline) Psychiatric exam: Present: normal affect, normal mood Skin exam: Present: warm, dry, intact. Absent: cyanosis, diaphoretic Course Vital Signs 05/07/21 05/07/21 09:05 09:13 Temperature 98.4 F Pulse Rate 88 Blood Pressure 123/74 O2 Sat by Pulse 97 Oximetry EKG Findings - EKG Comments: EKG Findings:: EKG: Atrial fibrillation, right axis, rate of 83, QRS duration 76, QTC [address] segment elevation. Medical Decision Making - Medical Decision Making 60 yo male presenting with dislodged permacath, need for hemodialysis. Patient had recent admission at outside hospital for intracranial hemorrhage. These records were obtained and by reviewing the medical record a rate seems that this patient's hemorrhage was approximately 3 cm x 2 cm x 3 cm. Repeat imaging today shows a small amount of residual hemorrhage but this does seem to be improved compared to the radiology interpretation of initial hemorrhage. I did discuss case with Dr. Vicky barrow for neurology and at this time we will monitor the patient and repeat imaging in the morning to ensure that this is stable and improving. Regarding the patient's access he will be admitted with vascular surgery on consult. I did discuss case with Dr. Devin barrow for nephrology who had initially recommended that this access be addressed sent the patient would receive hemodialysis. He has mild fluid overload on x-ray. Laboratory studies are within normal limits for this patient. - Lab Data Result diagrams: 05/07/21 09:33 05/07/21 09:33 Lab Results 05/07/21 05/07/21 Range/Units 09:33 09:33 WBC 5.5 (3.8-10.6) k/uL RBC 3.17 L (4.30-5.90) m/uL Hgb 10.8 L (13.0-17.5) gm/dL Hct 31.0 L (39.0-53.0) % MCV 97.7 (80.0-100.0) fL MCH 34.1 (25.0-35.0) pg MCHC 34.9 (31.0-37.0) g/dL RDW 15.3 (11.5-15.5) % Plt Count 173 (150-450) k/uL MPV 7.8 Neutrophils % 73 % Lymphocytes % 15 % Monocytes % 5 % Eosinophils % 4 % Basophils % 1 % Neutrophils # 4.0 (1.3-7.7) k/uL Lymphocytes # 0.8 L (1.0-4.8) k/uL Monocytes # 0.3 (0-1.0) k/uL Eosinophils # 0.2 (0-0.7) k/uL Basophils # 0.0 (0-0.2) k/uL Macrocytosis Slight Sodium 137 (137-145) mmol/L Potassium 4.5 (3.5-5.1) mmol/L Chloride 97 L (98-107) mmol/L Carbon Dioxide 33 H (22-30) mmol/L Anion Gap 7 mmol/L BUN 41 H (9-20) mg/dL Creatinine 3.81 H (0.66-1.25) mg/dL Est GFR (CKD-EPI)AfAm 18 (>60 ml/min/1.73 sqM) Est GFR (CKD-EPI)NonAf 16 (>60 ml/min/1.73 sqM) Glucose 200 H (74-99) mg/dL Calcium 9.6 (8.4-10.2) mg/dL Magnesium 1.9 (1.6-2.3) mg/dL Total Bilirubin 0.6 (0.2-1.3) mg/dL AST 46 (17-59) U/L ALT 60 H (4-49) U/L Alkaline Phosphatase 73 (38-126) U/L Total Protein 6.6 (6.3-8.2) g/dL Albumin 3.8 (3.5-5.0) g/dL Disposition Clinical Impression: ESRD (end stage renal disease) on dialysis, ICH (intracerebral hemorrhage) Disposition: ADMITTED IP TO THIS [facility] Condition: Stable Is patient prescribed a controlled substance at d/c from ED?: No Referrals: Roosevelt Borges MD [Primary Care Provider] - 1-2 days Decision to Admit Reason: Admit from EC Decision Date: 05/07/21 Decision Time: 11:31
[2021-05-07 10:09] LABS: Albumin 3.8 g/dL (3.5-5.0); Calcium 9.6 mg/dL (8.4-10.2); Magnesium 1.9 mg/dL (1.6-2.3); Potassium 4.5 mmol/L (3.5-5.1); Total Bilirubin 0.6 mg/dL (0.2-1.3); Total Protein 6.6 g/dL (6.3-8.2)
--- NOTE | 2021-05-07 10:22 | XR ---
EXAMINATION TYPE: XR chest 1V portable DATE OF EXAM: 05/07/2021 COMPARISON: Chest x-ray March 19, 2013 HISTORY: Dislodged permacath. TECHNIQUE: Single frontal view of the chest is obtained. FINDINGS: New right internal jugular large bore catheter terminates level of SVC. No focal break or d efect. Cardiac silhouette size is stable and within normal limits. Mild central vascular congestion. No suspicious focal airspace opacity or pneumothorax. The osseous structures are intact. IMPRESSION: As above.
--- NOTE | 2021-05-07 10:26 | CT ---
EXAMINATION TYPE: CT brain wo con DATE OF EXAM: 05/07/2021 COMPARISON: HISTORY: hx of recent ICH CT DLP: 1099.[address] of the brain was performed. The ventricles, basal cisterns and sulci overlying the cerebral convexities demonstrate mild enlargem ent. There is focal area of decreased attenuation in the region of the left thalamus. There is minimal per ipheral hyperdensity noted which could reflect residual hemorrhage. Prior study for comparison purpos es is not available. New Hemorrhage is difficult to exclude. There is no evidence for sulcal effacement. There is decreased attenuation about the periventricular white matter and deep white matter of both c erebral hemispheres, compatible with chronic small vessel ischemia. Differential diagnosis does inclu de demyelination. No mass effects are seen.No midline shift. Osseous calvarium is intact. If symptoms persist consider MRI. IMPRESSION: 1. There is focal area of decreased attenuation in the region of the left thalamus. There is minimal peripheral hyperdensity noted which could reflect residual hemorrhage. Prior study for comparison pur poses is not available. New Hemorrhage is difficult to exclude.
[2021-05-07] MEDS ORDERED: NALOXONE 0.4 MG/ML 1 ML VIAL IV PRN (11:25)
[2021-05-07] MEDS ORDERED: ACETAMINOPHEN TAB 325 MG TAB PO PRN (11:25)
--- NOTE | 2021-05-07 12:04 | P.NPCON ---
History of Present Illness - Reason for Consult end stage renal disease - History of Present Illness Reason for consultation: End-stage renal disease History of present illness: Patient is a 60-year-old male seen in renal consultation for end-stage renal disease. Patient was seen and examined in the emergency room. He is maintained on hemodialysis on Thursday schedule. Patient went for hemodialysis today due to the holiday schedule but was sent to the hospital as his permacath was nonfunctional. He also has a peritoneal dialysis catheter which is dislodged and needs to be replaced as the patient was to go back on PD. However this has been delayed as the patient recently had intracranial hemorrhage. is currently present at bedside. No chest pain or shortness of breath. No vomiting or diarrhea. Blood pressure stable. No fever or chills. Vital signs are stable. General: The patient appeared well nourished and normally developed. HEENT: Head exam is unremarkable. LUNGS: Breath sounds decreased. HEART: Rate and Rhythm are regular. ABDOMEN: Soft, no distention. EXTREMITITES: No edema. Past Medical History Past Medical History: Atrial Fibrillation, Diabetes Mellitus, Eye Disorder, GERD/Reflux, Hyperlipidemia, Hypertension, Myocardial Infarction ([place]), Renal Disease, Sleep Apnea/CPAP/BIPAP Additional Past Medical History / Comment(s): LEGALLY BLIND W/DIABETIC RETINOPATHY. DIABETIC NEUROPATHY. GOUT. RENAL FAILURE Last Myocardial Infarction Date:: History of Any Multi-Drug Resistant Organisms: None Reported Past Surgical History: Bariatric Surgery Additional Past Surgical History / Comment(s): GASTRIC SLEEVE 03/2013. EGD Past Anesthesia/Blood Transfusion Reactions: No Reported Reaction Past Psychological History: No Psychological Hx Reported Smoking Status: Former smoker - Past Family History Mother Family Medical History: Cancer Medications and Allergies Home Medications Medication Instructions Recorded Confirmed Type Atorvastatin [Lipitor] 10 mg PO HS 11/13/20 05/07/21 History Cholecalciferol [Vitamin D3 (25 50 mcg PO BID 11/13/20 05/07/21 History Mcg = 1000 Iu)] Furosemide [Lasix] 40 mg PO BID 11/13/20 05/07/21 History Gabapentin [Neurontin] 200 mg PO HS 11/13/20 05/07/21 History Glimepiride [Amaryl] 1 mg PO BID 11/13/20 05/07/21 History Omeprazole [PriLOSEC] 20 mg PO DAILY 11/13/20 05/07/21 History allopurinoL [Zyloprim] 100 mg PO BID 11/13/20 05/07/21 History atenoloL [Atenolol] 25 mg PO BID 11/13/20 05/07/21 History calcitrioL [Calcitriol] 0.5 mcg PO MOWEFR 11/13/20 05/07/21 History Acetaminophen Tab [Tylenol Tab] 1,000 mg PO Q4H PRN 05/07/21 05/07/21 History Gabapentin [Neurontin] 100 mg PO DAILY@1200 PRN 05/07/21 05/07/21 History Midodrine [ProAmatine] 5 mg PO BID PRN 05/07/21 05/07/21 History Nitroglycerin Sl Tabs [Nitrostat] 0.4 mg SUBLINGUAL Q5M PRN 05/07/21 05/07/21 History Sennosides [Senokot] 8.6 mg PO DAILY PRN 05/07/21 05/07/21 History Tamsulosin HCl [Flomax] 0.4 mg PO HS 05/07/21 05/07/21 History Vit B Complx C/Folic Acid/Zinc 1 tab PO DAILY 05/07/21 05/07/21 History [Renaplex Tablet] Allergies Allergy/AdvReac Type Severity Reaction Status Date / Time aprepitant [From Emend] Allergy Swelling Verified 05/07/21 10:46 bee venom protein (honey bee) Allergy Anaphylaxis Verified 05/07/21 10:46 fosaprepitant [From Emend] Allergy Swelling Verified 05/07/21 10:46 iodine Allergy Swelling Verified 05/07/21 10:46 Penicillins Allergy Unknown Verified 05/07/21 10:46 Childhood Physical Exam Vitals: Vital Signs Temp Pulse BP Pulse Ox 05/07/21 09:13 88 123/74 97 05/07/21 09:05 98.4 F Intake and Output 05/06/21 05/07/21 05/07/21 22:59 06:59 14:59 Other: Weight 104.326 kg Results - Lab Results Most recent lab results Calcium 9.6 mg/dL (8.4-10.2) 05/07/21 09:33 Magnesium 1.9 mg/dL (1.6-2.3) 05/07/21 09:33 05/07/21 09:33 05/07/21 09:33 Assessment and Plan Plan: Assessment: 1. End-stage renal disease maintained on hemodialysis on Thursday schedule via permacath. 2. Dislodged PD catheter. 3. Malfunctioning permacath. 4. Recent intracranial bleed. 5. Diabetes mellitus. 6. Chronic kidney disease mineral bone disease maintained on calcitriol outpatient. Plan: Consult vascular surgery to replace permacath today. 1 g IV vancomycin today due to redness around the permacath site. Check blood cultures. Consult Dr. Escobar per family's request to see when peritoneal dialysis catheter can be replaced. Hemodialysis today. Thank you for the consultation. I will continue to follow the patient with you during his hospital stay.
[2021-05-07] MEDS ORDERED: VANCOMYCIN 1,000 MG in SODIUM CHLORIDE 0.9% 250 ML IVPB STA (12:08)
[2021-05-07] MEDS ORDERED: LIDOCAINE 1% INJ 10MG/ML (20 ML MDV) ONE (14:43)
[2021-05-07] MEDS ORDERED: LIDOCAINE 1% INJ 10MG/ML (20 ML MDV) SQ ONE ×3 (14:50→14:53)
[2021-05-07] MEDS ORDERED: MIDAZOLAM 2 MG/2 ML VIAL IV ONE (14:50)
[2021-05-07] MEDS ORDERED: HEPARIN SODIUM 1,000 UN/ML (10ML VL) ONE (15:04)
--- NOTE | 2021-05-07 15:42 | IR ---
EXAMINATION TYPE: IR cvc insert central tunneled DATE OF EXAM: 05/07/2021 COMPARISON: NONE HISTORY: Malfunctioning dialysis catheter Fluoroscopy support supplied to the referring clinician. See dictated report from vascular surgery, 79 intraoperative C-arm images, 2.9 minutes fluoroscopy time supplied
[2021-05-07 15:50] LABS: Glucose,Whole Blood 107 mg/dL (75-99)
--- NOTE | 2021-05-07 15:55 | XR ---
EXAMINATION TYPE: XR chest 1V portable DATE OF EXAM: 05/07/2021 CLINICAL HISTORY: Hemodialysis catheter placement. TECHNIQUE: Single AP portable upright view of the chest is obtained. COMPARISON: Chest x-ray from earlier today FINDINGS: The new right internal jugular central venous catheter terminates at the cavoatrial juncti on. Cardiac silhouette size stable and upper limits normal. No new suspicious focal airspace opacity or pneumothorax seen bilaterally. Osseous structures are intact. IMPRESSION: As above
[2021-05-07] MEDS ORDERED: METHYL SALICYLATE/MENTHOL CREAM 5 OZ TOPICAL PRN ×2 (16:14→16:23)
[2021-05-07] MEDS ORDERED: HYDROcodone/APAP 5-325MG 1 EACH TAB PO PRN (16:29)
[2021-05-07] MEDS: LIDOCAINE 2% GEL 30 ML TUBE TOPICAL SCH ×2 (16:40→21:35)
--- NOTE | 2021-05-07 17:54 | P.CNNES ---
History of Present Illness Consult date: 05/07/21 Requesting physician: Perry Manning Reason for Consult: ICH History of Present Illness: This is a 60-year-old gentleman with medical history of recent intraparechymal stroke (Mar 2021) with residual right-sided weakness, atrial fibrillation (off anticoagulation due to brain bleed), diabetes mellitus, hypertension, hyperlipidemia, right cardial infarction 2, diabetic retinopathy of both eyes, end edgar renal disease on dialysis presented emergency department on 05/07/2021 since he has dislodged his permacath with minor bleeding. The history is obtained from the patient's was at bedside. The patient's the patient had I brain bleed in 03/28/2021 and initially he was at [facility] and then he had to be transferred to [facility] and there was notified that he had at brain bleed over the lower left thalamus basal ganglia region and was due to his uncontrolled hypertension as well as on Coumadin for his atrial fibrillation. Per the patient's the patient the as a result of stroke had the right-sided significant weakness and that has been making some slow improvements. She did not require any intervention for the brain bleed that. It was recommended by the team at [facility] for the patient to get a repeat CT of the head for tomorrow as an outpatient for surveillance of progression of bleed. Per the patient's patient does not have any new neurological deficits. As stated earlier he is not on any anticoagulation since the he had the brain bleed and the he follows up with a block feeder Dr. Boyd and it was decided also not to place the patient on antiplatelet as well because of the brain bleed. The the patient did not have any stroke prior to March 2021. And denies of any headaches, nausea, vomiting, and new weakness over the left side or worsening of the weakness over the right side that. Denies any difficulty getting his words out. And is not following up with a neurologist since he was recently discharged. Initial vital signs: Blood pressure of 123/74, heart rate of 88, temperature of 98.4 Fahrenheit oral and pulse ox of 97% room air. CT of the head is reported as there is a focal area of decreased attenuation in the region of left thalamus. There is minimal peripheral hyperdensity noted which could reflect residual hemorrhage. Prior study for comparison purposes is not available. No hemorrhage is difficult to exclude. White blood cell is 5.5, hemoglobin is 10.8, platelet is 173,000. Calcium is 9.6, magnesium is 1.9, serum glucose 200, sodium is 137. Review of Systems Review of system: The 12 point system was reviewed and apparent positive and negative per HPI. Past Medical History Past Medical History: Atrial Fibrillation, Diabetes Mellitus, Eye Disorder, GERD/Reflux, Hyperlipidemia, Hypertension, Myocardial Infarction ([place]), Renal Dis ease, Sleep Apnea/CPAP/BIPAP Additional Past Medical History / Comment(s): LEGALLY BLIND W/DIABETIC RETINOPATHY. DIABETIC NEUROPATHY. GOUT. RENAL FAILURE Last Myocardial Infarction Date:: History of Any Multi-Drug Resistant Organisms: None Reported Past Surgical History: Bariatric Surgery Additional Past Surgical History / Comment(s): GASTRIC SLEEVE 03/2013. EGD Past Anesthesia/Blood Transfusion Reactions: No Reported Reaction Past Psychological History: No Psychological Hx Reported Smoking Status: Former smoker - Past Family History Mother Family Medical History: Cancer Father Family Medical History: Congestive Heart Failure (CHF), Diabetes Mellitus, Renal Disease Medications and Allergies Home Medications Medication Instructions Recorded Confirmed Type Atorvastatin [Lipitor] 10 mg PO HS 11/13/20 05/07/21 History Cholecalciferol [Vitamin D3 (25 50 mcg PO BID 11/13/20 05/07/21 History Mcg = 1000 Iu)] Furosemide [Lasix] 40 mg PO BID 11/13/20 05/07/21 History Gabapentin [Neurontin] 200 mg PO HS 11/13/20 05/07/21 History Glimepiride [Amaryl] 1 mg PO BID 11/13/20 05/07/21 History Omeprazole [PriLOSEC] 20 mg PO DAILY 11/13/20 05/07/21 History allopurinoL [Zyloprim] 100 mg PO BID 11/13/20 05/07/21 History atenoloL [Atenolol] 25 mg PO BID 11/13/20 05/07/21 History calcitrioL [Calcitriol] 0.5 mcg PO MOWEFR 11/13/20 05/07/21 History Acetaminophen Tab [Tylenol Tab] 1,000 mg PO Q4H PRN 05/07/21 05/07/21 History Gabapentin [Neurontin] 100 mg PO DAILY@1200 PRN 05/07/21 05/07/21 History Midodrine [ProAmatine] 5 mg PO BID PRN 05/07/21 05/07/21 History Nitroglycerin Sl Tabs [Nitrostat] 0.4 mg SUBLINGUAL Q5M PRN 05/07/21 05/07/21 History Sennosides [Senokot] 8.6 mg PO DAILY PRN 05/07/21 05/07/21 History Tamsulosin HCl [Flomax] 0.4 mg PO HS 05/07/21 05/07/21 History Vit B Complx C/Folic Acid/Zinc 1 tab PO DAILY 05/07/21 05/07/21 History [Renaplex Tablet] Allergies Allergy/AdvReac Type Severity Reaction Status Date / Time aprepitant [From Emend] Allergy Swelling Verified 05/07/21 10:46 bee venom protein (honey bee) Allergy Anaphylaxis Verified 05/07/21 10:46 fosaprepitant [From Emend] Allergy Swelling Verified 05/07/21 10:46 iodine Allergy Swelling Verified 05/07/21 10:46 Penicillins Allergy Unknown Verified 05/07/21 10:46 Childhood Physical Examination - Vital Signs Vital Signs: Vital Signs Temp Pulse BP Pulse Ox 05/07/21 09:13 88 123/74 97 05/07/21 09:05 98.4 F Intake and Output 05/07/21 05/07/21 05/07/21 06:59 14:59 22:59 Other: Weight 104.326 kg GENERAL: The patient is lying in bed and is not in acute distress. CHEST: The heart rate is regular rate rhythm. No murmurs to auscultation. LUNG: Clear to auscultation bilaterally no wheezing noted throughout. Not labor ed breathing. ABDOMEN/GI: Bowel sounds present in all 4 quadrants. No tenderness to palpation throughout. NEUROLOGICAL: Higher mental function: The patient is awake, alert, oriented to self, place and time. Patient is able to name objects correctly (pen, watch). Patient is following simple commands. No aphasia and no neglect. Cranial nerves: The pupils are round, equal and reactive to light and accommodation. Visual greenberg appears right upper quadrant homonymous hemianopsia to confrontation throughout. Extraocular movement is intact no nystagmus is noted. Facial sensation is normal to touch throughout. The facial strength is mild right lower facial droop. Hearing is mildly decreased bilaterally to hand rub. Tongue is midline and moved [id number] without any difficulty. No dysarthria is noted. Shoulder shrug is normal bilaterally. Motor: Gait is deferred because of his weakness. The strength is able to slightly bend his right elbow upon lifting arm up. Right hand flexion is 2. Able to lift right upper extremity above gravity and ankle movement is 2/5. Otherwise right side is 0/5. Left side is 5/5. Decrease tone over the right side. Normal bulk. Cerebellum: Normal finger to nose over left and unable to perform over the right. Sensation: Sensation is normal to touch throughout. Reflexes (right/left): 1+ throughout uppers except triceps is 2+ bilaterally. Lowers are 0-1+.. Plantars is upgoing over the right and mute over the left. Results - Laboratory Findings CBC and BMP: 05/07/21 09:33 05/07/21 09:33 Abnormal Lab Findings: Abnormal Labs 05/07/21 05/07/21 05/07/21 09:33 09:33 15:39 RBC 3.17 L Hgb 10.8 L Hct 31.0 L Lymphocytes # 0.8 L Chloride 97 L Carbon Dioxide 33 H BUN 41 H Creatinine 3.81 H Glucose 200 H POC Glucose (mg/dL) 107 H ALT 60 H Assessment and Plan Assessment: * Recent intraparechymal hemorrhage over the left thalamus (03/28/2021) due to uncontrolled hypertension and use of anticoagulation (I feel in that region more due to uncontrolled hypertension) with residual significant hemiparesis. Had work-up at outside facility and no intervention. He was supposed to have an outpatient CT of the head for further surveillance without any new deficits. * Atrial fibrillation and stopped coumadin since he had intraparehcymal bleed. * Diabetes mellitus (sugar in 200) * Diabetic retinopathy * History of end-stage renal disease on dialysis * Hypertension for past 20 years and per was not controlled * Hyperlipidemia * Tree of myocardial infraction 2 Plan: Will get repeat CT of the head for tomorrow to see if there is any evolution of the hemorrhage. Every 4 hours neuro checks Pressure goal for systolic is between 120s and 140s. We'll defer the management to the primary team Patient is on cardiac monitoring Patient history of atrial fibrillation and is following-up with his block feeder (Dr. Boyd). Per they are not interested in restarting anticoagulation because of risk of a future bleed. Consider ASA 81mg daily and will defer that final decision between patient and his block feeder. There is risk of bleed with anticoagulation but at same time there is risk of ischemic stroke and patient and his are aware of that. Nephrology team is consulted Defer the rest of the medical management to the primary team. Will attempt to get records for his hospital stay for his intraparenchymal bleed. Upon discharge the patient needs to follow up with a neurologist as an outpatient within 1-2 weeks. The plan is discussed with the patient and his who are at bedside. Thank you for the consultation. Mark Diaz MD Neuro-Hospitalist Time with Patient: Greater than 30
[2021-05-07] MEDS ORDERED: MIDODRINE 5 MG TAB PO PRN (18:32)
[2021-05-07] MEDS ORDERED: NITROGLYCERIN SL TABS 0.4 MG TAB SUBLINGUAL PRN (18:32)
[2021-05-07] MEDS ORDERED: SENNOSIDES 8.6 MG TAB PO PRN (18:32)
--- NOTE | 2021-05-07 20:03 | HP ---
HISTORY AND PHYSICAL DATE OF SERVICE: 05/07/2021 CHIEF COMPLAINT: Blocked dialysis catheter. HISTORY OF PRESENT ILLNESS: This 60-year-old gentleman with a past medical history of atrial fibrillation, diabetes mellitus, type 2, history of hypertension, history of hyperlipidemia, also has a history of right-sided stroke. The patient has also end-stage renal disease, on hemodialysis on a Thursday, Thursday, Thursday schedule. Dialysis was attempted today, but because of a nonfunctioning dialysis catheter, the patient was sent to the hospital. The patient also has a peritoneal dialysis catheter which is also dislodged at this time. The patient would like to go back to the peritoneal dialysis catheter. The patient was seen by Dr. Lord and currently the patient is undergoing hemodialysis as well. The patient was also seen by Neurology for recent intraparenchymal hemorrhage due to uncontrolled hypertension and use of anticoagulation. The patient has residual hemiparesis. The patient is being closely monitored at this time. There is no history of any fever, rigor or chills at this time. PAST MEDICAL HISTORY: History of recent stroke, history of atrial fibrillation, history of GERD, hypertension, hyperlipidemia, history of myocardial infarction. HOME MEDICATIONS: Zyloprim, calcitriol, atenolol, RenaPlex, Plavix, Flomax, Senokot, Prilosec, Nitrostat, ProAmatine, Amaryl, Neurontin. Lasix, vitamin D3, Lipitor, Tylenol. Doses are reviewed. ALLERGIES: APREPITANT, HONEY BEE, IODINE and PENICILLIN. FAMILY HISTORY: History of cancer in the family. SOCIAL HISTORY: Previous history of smoking. No history of alcohol intake. REVIEW OF SYSTEMS: ENT: No diminished hearing. No diminished vision. CARDIOVASCULAR SYSTEM: As mentioned earlier. RESPIRATORY SYSTEM: As mentioned earlier. GI: No nausea, vomiting, diarrhea. : As mentioned earlier. NERVOUS SYSTEM: As mentioned earlier. ALLERGY/IMMUNOLOGY: No asthma or hay fever. MUSCULOSKELETAL: As mentioned earlier. HEMATOLOGY/ONCOLOGY: No history of anemia. ENDOCRINE: As mentioned earlier. CONSTITUTIONAL: As mentioned earlier. DERMATOLOGY: Negative. RHEUMATOLOGY: Negative. PSYCHIATRY: As mentioned earlier. PHYSICAL EXAMINATION: Patient alert and oriented x3. The patient is mildly dysarthric. Pulse 88, blood pressure 123/70, respirations 16, temperature 98.4, pulse ox 97% on room air. HEENT: Conjunctivae normal. Oral mucosa moist. NECK: No jugular venous distention. No carotid bruit. No lymph node enlargement. CARDIOVASCULAR: S1, S2 muffled. RESPIRATION: Breath sounds diminished at the bases. A few scattered rhonchi. ABDOMEN: Soft, obese, non-tender. LEGS: No edema. No swelling. NERVOUS SYSTEM: Higher functions as mentioned earlier. Moves all 4 limbs. Right hemiplegia with significant weakness also present. SKIN: No ulcer, rash, bleeding. JOINTS: No active deforming arthropathy. LABS: WBC 5.2, hemoglobin 10.8, sodium 137, potassium 4.5, creatinine 3.83. ASSESSMENT: 1. Nonfunctioning dialysis catheter, status post revision. 2. End-stage renal disease, on hemodialysis Thursday, Thursday, Thursday. 3. Recent acute stroke involving the left hemisphere causing right hemiplegia. 4. Anemia, normocytic anemia of chronic disease. 5. Elevated ALT. 6. History of atrial fibrillation. 7. Diabetes mellitus, type 2. 8. Gastroesophageal reflux disease. 9. Hypertension. 10.Hyperlipidemia. 11.History of myocardial infarction. 12.History of sleep apnea. 13.Legal blindness. 14.History of diabetic neuropathy. 15.Retinopathy. 16.History of gout. 17.History of bariatric surgery. 18.History of gastric sleeve surgery. 19.Remote history of nicotine dependence. 20.Obesity with body mass index of 37.1. 21.FULL CODE. RECOMMENDATIONS AND DISCUSSION: In this 60-year-old gentleman who presented with multiple complex medical issues, we will monitor the patient closely, continue the current medications, continue with symptomatic treatment. Hemodialysis is being continued at this time. Dr. Beltran is following the patient closely. I would also recommend evaluation by Dr. Diaz, who saw the patient and recommended a CT scan tomorrow. Maintain the blood pressure. Aspirin 81 mg has been recommended, but the final decision has to be between the patient and Cardiology per neurologist because of the risk of bleeding and the need to balance with other risk of strokes also. The prognosis is guarded because of multiple complex medical issues, as mentioned earlier. A copy of this dictation is being forwarded to Dr. Borges, who is the primary physician. MMODL / IJN: [id number] / [facility]
[2021-05-07 20:23] LABS: Glucose,Whole Blood 190 mg/dL (75-99)
[2021-05-07] MEDS ORDERED: TAMSULOSIN 0.4 MG CAP.ER.24H PO SCH (21:00)
[2021-05-07] MEDS ORDERED: ATORVASTATIN 10 MG TAB PO SCH (21:00)
[2021-05-07] MEDS ORDERED: GABAPENTIN 100 MG CAP PO SCH (21:00)
[2021-05-07] MEDS: CHOLECALCIFEROL 25 MCG (1000 IU) TABLET PO SCH (21:33)
[2021-05-07] MEDS: atenoloL 25 MG TAB PO SCH (21:33)
[2021-05-07] MEDS: FUROSEMIDE 40 MG TAB PO SCH (21:33)
[2021-05-07] MEDS: GLIMEPIRIDE 1 MG TAB PO SCH (21:34)
[2021-05-07] MEDS: INSULIN ASPART (NovoLOG) 100 UNIT/ML VIAL SQ SCH (21:34)
[2021-05-08 06:09] LABS: Glucose,Whole Blood 123 mg/dL (75-99)
[2021-05-08] MEDS: INSULIN ASPART (NovoLOG) 100 UNIT/ML VIAL SQ SCH ×2 (06:12→11:27)
[2021-05-08 06:41] LABS: Basophils % (A) 1 %; Eosinophils # (A) 0.2 k/uL (0-0.7); Eosinophils % (A) 4 %; HCT 30.9 % (39.0-53.0); HGB 10.4 gm/dL (13.0-17.5); Lymphocytes # (A) 0.7 k/uL (1.0-4.8); Lymphocytes % (A) 16 %; MCH 33.6 pg (25.0-35.0); MCHC 33.6 g/dL (31.0-37.0); MCV 100.1 fL (80.0-100.0); Macrocytosis Slight; Mean Platelet Volume 7.9; Monocytes # (A) 0.2 k/uL (0-1.0); Monocytes % (A) 5 %; Neutrophils % (A) 72 %; Platelet Count 172 k/uL (150-450); RBC 3.09 m/uL (4.30-5.90); RDW 14.7 % (11.5-15.5); WBC 4.1 k/uL (3.8-10.6)
[2021-05-08 06:49] LABS: Calcium 9.2 mg/dL (8.4-10.2); Potassium 4.2 mmol/L (3.5-5.1)
[2021-05-08] MEDS ORDERED: PANTOPRAZOLE 40 MG TABLET PO SCH (07:30)
[2021-05-08] MEDS ORDERED: allopurinoL 100 MG TAB PO SCH (09:00)
[2021-05-08] MEDS ORDERED: NON FORMULARY DRUG (Vit B Complx C/Folic Acid/Zinc [Renaplex Tablet] 1 EACH Tablet) PO SCH (09:00)
--- NOTE | 2021-05-08 09:41 | P.PN ---
Subjective Patient is seen in follow-up for end-stage renal disease. He is maintained on hemodialysis on Thursday schedule. Underwent dialysis yesterday due to holiday schedule. Permacath was replaced yesterday. No active complaints at this time. Vital signs are stable. General: The patient appeared well nourished and normally developed. HEENT: Head exam is unremarkable. LUNGS: Breath sounds decreased. HEART: Rate and Rhythm are regular. ABDOMEN: Soft, no distention. EXTREMITITES: No edema. Objective - Vital Signs Vital signs: Vital Signs Temp 98.2 F 05/08/21 03:37 Pulse 82 05/08/21 03:37 Resp 16 05/08/21 03:37 BP 106/66 05/08/21 03:37 Pulse Ox 95 05/08/21 03:37 Intake & Output 05/07/21 05/08/21 05/08/21 18:59 06:59 18:59 Intake Total 118 Output Total 1000 Balance -1000 118 Weight 104.326 kg 101 kg Intake: Oral 118 Output: Hemodialysis 1000 Other: # Voids 0 - Labs CBC & Chem 7: 05/08/21 05:34 05/08/21 05:34 Labs: Abnormal Lab Results - Last 24 Hours (Table) 05/07/21 05/07/21 05/07/21 Range/Units 09:33 09:33 15:39 RBC 3.17 L (4.30-5.90) m/uL Hgb 10.8 L (13.0-17.5) gm/dL Hct 31.0 L (39.0-53.0) % MCV (80.0-100.0) fL Lymphocytes # 0.8 L (1.0-4.8) k/uL Chloride 97 L (98-107) mmol/L Carbon Dioxide 33 H (22-30) mmol/L BUN 41 H (9-20) mg/dL Creatinine 3.81 H (0.66-1.25) mg/dL Glucose 200 H (74-99) mg/dL POC Glucose (mg/dL) 107 H (75-99) mg/dL ALT 60 H (4-49) U/L 05/07/21 05/08/21 05/08/21 Range/Units 20:21 05:34 05:34 RBC 3.09 L (4.30-5.90) m/uL Hgb 10.4 L (13.0-17.5) gm/dL Hct 30.9 L (39.0-53.0) % MCV 100.1 H (80.0-100.0) fL Lymphocytes # 0.7 L (1.0-4.8) k/uL Chloride (98-107) mmol/L Carbon Dioxide (22-30) mmol/L BUN 21 H (9-20) mg/dL Creatinine 2.54 H (0.66-1.25) mg/dL Glucose 118 H (74-99) mg/dL POC Glucose (mg/dL) 190 H (75-99) mg/dL ALT (4-49) U/L 05/08/21 Range/Units 06:07 RBC (4.30-5.90) m/uL Hgb (13.0-17.5) gm/dL Hct (39.0-53.0) % MCV (80.0-100.0) fL Lymphocytes # (1.0-4.8) k/uL Chloride (98-107) mmol/L Carbon Dioxide (22-30) mmol/L BUN (9-20) mg/dL Creatinine (0.66-1.25) mg/dL Glucose (74-99) mg/dL POC Glucose (mg/dL) 123 H (75-99) mg/dL ALT (4-49) U/L Microbiology - Last 24 Hours (Table) 05/07/21 16:38 Catheter Tip Culture - Preliminary Catheter Tip Assessment and Plan Plan: Assessment: 1. End-stage renal disease maintained on hemodialysis on Thursday schedule via permacath. 2. Dislodged PD catheter. 3. Malfunctioning permacath - replaced May 07. 4. Recent intracranial bleed. 5. Diabetes mellitus. 6. Chronic kidney disease mineral bone disease maintained on calcitriol. Plan: Hemodialysis on Thursday. Status post IV vancomycin given May 07. Follow-up catheter tip culture. Consulted Dr. Escobar per family's request to see when peritoneal dialysis catheter can be replaced.
[2021-05-08] MEDS: GLIMEPIRIDE 1 MG TAB PO SCH (10:08)
[2021-05-08] MEDS: FUROSEMIDE 40 MG TAB PO SCH (10:08)
[2021-05-08] MEDS: CHOLECALCIFEROL 25 MCG (1000 IU) TABLET PO SCH (10:08)
[2021-05-08] MEDS: atenoloL 25 MG TAB PO SCH (10:08)
[2021-05-08 10:57] VITALS: RESP 17
--- NOTE | 2021-05-08 11:19 | CT ---
EXAMINATION TYPE: CT brain wo con DATE OF EXAM: 05/08/2021 COMPARISON: 05/07/2021 HISTORY: History of intracranial hemorrhage CT DLP: 1011.[address] of the brain was performed. The ventricles, basal cisterns and sulci overlying the cerebral convexities demonstrate mild enlargem ent. Again noted is decreased attenuation within the left thalamus with a couple of the focal areas of per ipheral hyperdensity unchanged from yesterday's study. These areas may reflect residual hemorrhage. A gain no change from yesterday's study is noted. There is decreased attenuation about the periventricular white matter and deep white matter of both c erebral hemispheres, compatible with chronic small vessel ischemia. Differential diagnosis does inclu de demyelination. No mass effects are seen.No midline shift. Osseous calvarium is intact. If symptoms persist consider MRI. IMPRESSION: 1. Again noted is decreased attenuation within the left thalamus with a couple of the focal areas of peripheral hyperdensity unchanged from yesterday's study. These areas may reflect residual hemorrhage . Again no change from yesterday's study is noted.
[2021-05-08 11:28] LABS: Glucose,Whole Blood 256 mg/dL (75-99)
[2021-05-08] MEDS: LIDOCAINE 2% GEL 30 ML TUBE TOPICAL SCH (11:43)
--- NOTE | 2021-05-08 11:54 | P.GSCN ---
History of Present Illness Consult date: 05/08/21 Reason for Consult: Malfunctioning dialysis catheter History of present illness: Patient will known to our service. Underwent recent hemorrhagic stroke. Patient prior to that was having issues with his catheter not functioning properly. Patient was hospitalized because his hemodialysis catheter was likewise not functioning well. Apparently over the last 3-4 weeks he has had some bloody drainage around the catheter exit site. No odor. No pain. No redness. No fevers. We were consulted for evaluation of peritoneal dialysis catheter. Review of Systems The patient denies any acute changes in vision or hearing, no dysphagia or odynophagia, no chest pain or shortness of breath, no dysuria or hematuria, no headache, no runny nose, no rectal bleeding or melena, no unexplained weight loss Past Medical History Past Medical History: Atrial Fibrillation, Diabetes Mellitus, Eye Disorder, GERD/Reflux, Hyperlipidemia, Hypertension, Myocardial Infarction ([place]), Renal D isease, Sleep Apnea/CPAP/BIPAP Additional Past Medical History / Comment(s): LEGALLY BLIND W/DIABETIC RETINOPATHY. DIABETIC NEUROPATHY. GOUT. RENAL FAILURE Last Myocardial Infarction Date:: History of Any Multi-Drug Resistant Organisms: None Reported Past Surgical History: Bariatric Surgery Additional Past Surgical History / Comment(s): GASTRIC SLEEVE 03/2013. EGD Past Anesthesia/Blood Transfusion Reactions: No Reported Reaction Additional Past Anesthesia/Blood Transfusion Reaction / Comm: PT. PREVIOUSLY WAS A DIFFICULT INTUBATION AND A SURGERY WAS CANCELLED BECAUSE OF THAT Past Psychological History: No Psychological Hx Reported Smoking Status: Former smoker - Past Family History Mother Family Medical History: Cancer Father Family Medical History: Congestive Heart Failure (CHF), Diabetes Mellitus, Renal Disease Medications and Allergies Home Medications Medication Instructions Recorded Confirmed Type Atorvastatin [Lipitor] 10 mg PO HS 11/13/20 05/07/21 History Cholecalciferol [Vitamin D3 (25 50 mcg PO BID 11/13/20 05/07/21 History Mcg = 1000 Iu)] Furosemide [Lasix] 40 mg PO BID 11/13/20 05/07/21 History Gabapentin [Neurontin] 200 mg PO HS 11/13/20 05/07/21 History Glimepiride [Amaryl] 1 mg PO BID 11/13/20 05/07/21 History Omeprazole [PriLOSEC] 20 mg PO DAILY 11/13/20 05/07/21 History allopurinoL [Zyloprim] 200 mg PO DAILY 11/13/20 05/07/21 History atenoloL 25 mg PO BID 11/13/20 05/07/21 History calcitrioL [Calcitriol] 0.5 mcg PO MOWEFR 11/13/20 05/07/21 History Acetaminophen Tab [Tylenol] 1,000 mg PO Q4H PRN 05/07/21 05/07/21 History Gabapentin [Neurontin] 100 mg PO DAILY@1200 PRN 05/07/21 05/07/21 History Midodrine [ProAmatine] 5 mg PO BID PRN 05/07/21 05/07/21 History Nitroglycerin Sl Tabs [Nitrostat] 0.4 mg SUBLINGUAL Q5M PRN 05/07/21 05/07/21 History Sennosides [Senokot] 8.6 mg PO DAILY PRN 05/07/21 05/07/21 History Tamsulosin HCl [Flomax] 0.4 mg PO HS 05/07/21 05/07/21 History Vit B Complx C/Folic Acid/Zinc 1 tab PO DAILY 05/07/21 05/07/21 History [Renaplex Tablet] Allergies Allergy/AdvReac Type Severity Reaction Status Date / Time aprepitant [From Emend] Allergy Swelling Verified 05/07/21 10:46 bee venom protein (honey bee) Allergy Anaphylaxis Verified 05/07/21 10:46 fosaprepitant [From Emend] Allergy Swelling Verified 05/07/21 10:46 iodine Allergy Swelling Verified 05/07/21 10:46 Penicillins Allergy Unknown Verified 05/07/21 10:46 Childhood Surgical - Exam Vital Signs Temp 98.4 F 05/07/21 09:05 Physical exam: General: Well-developed, well-nourished HEENT: Normocephalic, sclerae nonicteric Abdomen: Nontender, nondistended, catheter exit site right lower quadrant with sanguinous drainage that is cloudy and somewhat purulent in appearance, no tenderness Extremities: No edema Neuro: Alert and oriented Results - Labs 05/08/21 05:34 05/08/21 05:34 Abnormal Lab Results - Last 24 Hours (Table) 05/07/21 05/07/21 05/08/21 Range/Units 15:39 20:21 05:34 RBC 3.09 L (4.30-5.90) m/uL Hgb 10.4 L (13.0-17.5) gm/dL Hct 30.9 L (39.0-53.0) % MCV 100.1 H (80.0-100.0) fL Lymphocytes # 0.7 L (1.0-4.8) k/uL BUN (9-20) mg/dL Creatinine (0.66-1.25) mg/dL Glucose (74-99) mg/dL POC Glucose (mg/dL) 107 H 190 H (75-99) mg/dL 05/08/21 05/08/21 05/08/21 Range/Units 05:34 06:07 11:27 RBC (4.30-5.90) m/uL Hgb (13.0-17.5) gm/dL Hct (39.0-53.0) % MCV (80.0-100.0) fL Lymphocytes # (1.0-4.8) k/uL BUN 21 H (9-20) mg/dL Creatinine 2.54 H (0.66-1.25) mg/dL Glucose 118 H (74-99) mg/dL POC Glucose (mg/dL) 123 H 256 H (75-99) mg/dL Microbiology - Last 24 Hours (Table) 05/07/21 16:38 Catheter Tip Culture - Preliminary Catheter Tip Diabetes panel 05/08/21 Range/Units 05:34 Sodium 138 (137-145) mmol/L Potassium 4.2 (3.5-5.1) mmol/L Chloride 101 (98-107) mmol/L Carbon Dioxide 30 (22-30) mmol/L BUN 21 H (9-20) mg/dL Creatinine 2.54 H (0.66-1.25) mg/dL Glucose 118 H (74-99) mg/dL Calcium 9.2 (8.4-10.2) mg/dL Calcium panel 05/08/21 Range/Units 05:34 Calcium 9.2 (8.4-10.2) mg/dL Pituitary panel 05/08/21 Range/Units 05:34 Sodium 138 (137-145) mmol/L Potassium 4.2 (3.5-5.1) mmol/L Chloride 101 (98-107) mmol/L Carbon Dioxide 30 (22-30) mmol/L BUN 21 H (9-20) mg/dL Creatinine 2.54 H (0.66-1.25) mg/dL Glucose 118 H (74-99) mg/dL Calcium 9.2 (8.4-10.2) mg/dL Adrenal panel 05/08/21 Range/Units 05:34 Sodium 138 (137-145) mmol/L Potassium 4.2 (3.5-5.1) mmol/L Chloride 101 (98-107) mmol/L Carbon Dioxide 30 (22-30) mmol/L BUN 21 H (9-20) mg/dL Creatinine 2.54 H (0.66-1.25) mg/dL Glucose 118 H (74-99) mg/dL Calcium 9.2 (8.4-10.2) mg/dL Assessment and Plan (1) Peritoneal dialysis catheter dysfunction Narrative/Plan: Patient doing well at this time. New hemodialysis catheter working well. Sounds like he is going home. I am not happy with the appearance of the drainage around the peritoneal dialysis catheter however. Recommend that we remove the dialysis catheter and schedule a new peritoneal dialysis catheter in the future following that. We'll schedule for dialysis catheter removal on Thursday. October discharge. Current Visit: Yes Status: Acute Code(s): T85.611A - BREAKDOWN OF INTRAPERITONEAL DIALYSIS CATHETER, INIT SNOMED Code(s): 241341757
[2021-05-08 11:59] VITALS: BP 148/77; PULSE 89; TEMP 97.9
[2021-05-08] MEDS ORDERED: GABAPENTIN 100 MG CAP PO PRN (12:00)
--- NOTE | 2021-05-08 12:05 | P.PN ---
Subjective Progress Note Date: 05/08/21 The patient is seen at bedside and is accompanied by his and he feels from neurological stand point about the same. Denies any new neurological problems. Objective - Vital Signs Vital signs: Vital Signs Temp 97.9 F 05/08/21 11:58 Pulse 89 05/08/21 11:58 Resp 17 05/08/21 11:58 BP 148/77 05/08/21 11:58 Pulse Ox 100 05/08/21 11:58 Intake & Output 05/07/21 05/08/21 05/08/21 18:59 06:59 18:59 Intake Total 118 Output Total 1000 Balance -1000 118 Weight 104.326 kg 101 kg Intake: Oral 118 Output: Hemodialysis 1000 Other: # Voids 0 - Exam GENERAL: The patient is lying in bed and is not in acute distress. NEUROLOGICAL: Higher mental function: The patient is awake, alert, oriented to self, place and time. Patient is able to name objects correctly (pen, watch). Patient is following simple commands. No aphasia and no neglect. Cranial nerves: The pupils are round, equal and reactive to light and ac commodation. Visual greenberg appears right upper quadrant homonymous hemianopsia to confrontation throughout. Extraocular movement is intact no nystagmus is noted. Facial sensation is normal to touch throughout. The facial strength is mild right lower facial droop. Hearing is mildly decreased bilaterally to hand rub. Tongue is midline and moved [id number] without any difficulty. No dysarthria is noted. Shoulder shrug is normal bilaterally. Motor: Gait is deferred because of his weakness. The strength is able to slightly bend his right elbow upon lifting arm up. Right hand flexion is 2. Able to lift right upper extremity above gravity and ankle movement is 2/5. Otherwise right side is 0/5. Left side is 5/5. Decrease tone over the right side. Normal bulk. Cerebellum: Normal finger to nose over left and unable to perform over the right. Sensation: Sensation is normal to touch throughout. Reflexes (right/left): 1+ throughout uppers except triceps is 2+ bilaterally. L owers are 0-1+.. Plantars is upgoing over the right and mute over the left. WORK-UP: CT of the head is reported as there is a focal area of decreased attenuation in the region of left thalamus. There is minimal peripheral hyperdensity noted which could reflect residual hemorrhage. Prior study for comparison purposes is not available. No hemorrhage is difficult to exclude. Repeat CT of the brain today is reported as again noted is decreased attenuation within the left thalamus with a couple of focal area of peripheral hyperdensity unchanged from yesterday's study. These areas may reflect residual hemorrhage. Again no change from yesterday's study is noted. - Labs CBC & Chem 7: 05/08/21 05:34 05/08/21 05:34 Labs: Abnormal Lab Results - Last 24 Hours (Table) 05/07/21 05/07/21 05/08/21 Range/Units 15:39 20:21 05:34 RBC 3.09 L (4.30-5.90) m/uL Hgb 10.4 L (13.0-17.5) gm/dL Hct 30.9 L (39.0-53.0) % MCV 100.1 H (80.0-100.0) fL Lymphocytes # 0.7 L (1.0-4.8) k/uL BUN (9-20) mg/dL Creatinine (0.66-1.25) mg/dL Glucose (74-99) mg/dL POC Glucose (mg/dL) 107 H 190 H (75-99) mg/dL 05/08/21 05/08/21 05/08/21 Range/Units 05:34 06:07 11:27 RBC (4.30-5.90) m/uL Hgb (13.0-17.5) gm/dL Hct (39.0-53.0) % MCV (80.0-100.0) fL Lymphocytes # (1.0-4.8) k/uL BUN 21 H (9-20) mg/dL Creatinine 2.54 H (0.66-1.25) mg/dL Glucose 118 H (74-99) mg/dL POC Glucose (mg/dL) 123 H 256 H (75-99) mg/dL Microbiology - Last 24 Hours (Table) 05/07/21 16:38 Catheter Tip Culture - Preliminary Catheter Tip Assessment and Plan Assessment: * Recent intraparechymal hemorrhage over the left thalamus (03/28/2021) due to uncontrolled hypertension and use of anticoagulation (I feel in that region more due to uncontrolled hypertension) with residual significant hemiparesis. Had work-up at outside facility and no intervention. He was supposed to have an outpatient CT of the head for further surveillance without any new deficits. * Atrial fibrillation and stopped coumadin since he had intraparehcymal bleed. * Diabetes mellitus (sugar in 200) * Diabetic retinopathy * History of end-stage renal disease on dialysis * Hypertension for past 20 years and per was not controlled * Hyperlipidemia * Tree of myocardial infraction 2 Plan: Pressure goal for systolic is between 120s and 140s. We'll defer the management to the primary team Patient is on cardiac monitoring Patient history of atrial fibrillation and is following-up with his automobile assembler (Dr. Boyd). Per they are not interested in restarting anticoagulation because of risk of a future bleed. Consider ASA 81mg daily and will defer that final decision between patient and his automobile assembler. There is risk of bleed with anticoagulation but at same time there is risk of ischemic stroke and patient and his are aware of that. Nephrology team is consulted Defer the rest of the medical management to the primary team. Pending records for his hospital stay for his intraparenchymal bleed. Upon discharge the patient needs to follow up with a neurologist as an outpatient within 1-2 weeks. The plan is discussed with the patient and his who are at bedside. There is no further neurological work-up. Mark Diaz MD Neuro-Hospitalist Time with Patient: Less than 30
--- NOTE | 2021-05-08 23:43 | DS ---
DISCHARGE SUMMARY FINAL DIAGNOSES: 1. Nonfunctioning dialysis catheter, status post revision. 2. End-stage renal disease on hemodialysis Thursday, Thursday, Thursday. 3. Recent acute stroke involving the left hemisphere causing right hemiplegia. 4. Anemia, normocytic anemia of chronic disease. 5. Elevated ALT. 6. History of atrial fibrillation. 7. Diabetes mellitus, type 2. 8. Gastroesophageal reflux disease. 9. Hypertension. 10.Hyperlipidemia. 11.History of myocardial infarction. 12.History of sleep apnea. 13.History of legal blindness. 14.History of diabetic neuropathy. 15.Retinopathy. 16.History of gout. 17.History of bariatric surgery. 18.History of gastric sleeve surgery. 19.Remote history of nicotine dependence. 20.Obesity with body mass index of 37.1. 21.FULL CODE. DISCHARGE DISPOSITION: The patient will be discharged in stable condition with guarded prognosis. HISTORY OF PRESENT ILLNESS: This 60-year-old gentleman with a past medical history of multiple medical problems admitted with nonfunctioning dialysis catheter, revision was done by Dr. Lord. Patient improved significantly. Multiple consultations including Neurology, Nephrology, and Vascular surgery saw the patient. On exam, vitals are stable. Cardiovascular: S1, S2. Abdomen soft. Nontender. Nervous system: No focal deficits. DISCHARGE ADVICE AND FOLLOW UP: 1. Diet is cardiac diet. 2. Followup with Dr. Borges 2-3 days. 3. Follow up with Dr. Escobar in 1 week. 4. Follow with Nephrology as recommended. DISCHARGE MEDICATIONS: 1. Amaryl 1 mg p.o. b.i.d. 2. Atenolol 25 mg b.i.d. 3. Calcitriol 0.5. 4. Flomax 0.4 q.h.s. 5. Lasix 40 mg p.o. b.i.d. 6. Lipitor 10 mg q.h.s. 7. Neurontin 220 mg q.h.s. 8. Nitrostat 0.4 sublingually p.r.n. 9. Prilosec 20 mg daily. 10.Midodrine 5 mg b.i.d. p.r.n. 11.Vitamin B complex. 12.Senokot p.r.n. 13.Tylenol p.r.n. 14.Vitamin D3 50 mcg p.o. b.i.d. 15.Zyloprim 200 mg daily. 16.Levaquin 500 mg p.o. daily. Once again, the patient being discharged in stable condition with guarded prognosis. Followup with Dr. Borges and Dr. Escobar regarding the peritoneal dialysis catheter site. MMANOOPL / TONEYN: [id number] /
== END 2021-05-08 11:58 | disposition home or self-care (01) | DRG 698 ==
LOC: EC 09:04 → 3SCARD 11:25
PROVIDERS: ADMIT Internal Medicine; ATTEND Internal Medicine
PROC: 02HV33Z Insertion of Infusion Device into Superior Vena Cava, Percutaneous Approach (ICD-10-PCS; principal; 2021-05-07 12:25)
PROC: 5A1D70Z Performance of Urinary Filtration, Intermittent, Less than 6 Hours Per Day (ICD-10-PCS; 2021-05-08)
DX: T82.41XA Breakdown (mechanical) of vascular dialysis catheter, initial encounter (principal); N18.6 End stage renal disease; T85.621A Displacement of intraperitoneal dialysis catheter, initial encounter; I12.0 Hypertensive chronic kidney disease with stage 5 chronic kidney disease or end stage renal disease; I69.351 Hemiplegia and hemiparesis following cerebral infarction affecting right dominant side; E11.22 Type 2 diabetes mellitus with diabetic chronic kidney disease; E11.319 Type 2 diabetes mellitus with unspecified diabetic retinopathy without macular edema; E11.40 Type 2 diabetes mellitus with diabetic neuropathy, unspecified; Y71.2 Prosthetic and other implants, materials and accessory cardiovascular devices associated with adverse incidents; Y81.2 Prosthetic and other implants, materials and accessory general- and plastic-surgery devices associated with adverse incidents; K21.9 Gastro-esophageal reflux disease without esophagitis; E66.9 Obesity, unspecified; D63.8 Anemia in other chronic diseases classified elsewhere; E78.5 Hyperlipidemia, unspecified; M89.8X9 Other specified disorders of bone, unspecified site; M10.9 Gout, unspecified; I48.91 Unspecified atrial fibrillation; H54.8 Legal blindness, as defined in USA; I25.2 Old myocardial infarction; Z68.37 Body mass index [BMI] 37.0-37.9, adult; Z79.01 Long term (current) use of anticoagulants; Z79.84 Long term (current) use of oral hypoglycemic drugs; Z98.890 Other specified postprocedural states; Z79.899 Other long term (current) drug therapy; Z87.891 Personal history of nicotine dependence; Z98.84 Bariatric surgery status; Z99.2 Dependence on renal dialysis; Z80.9 Family history of malignant neoplasm, unspecified; Z82.49 Family history of ischemic heart disease and other diseases of the circulatory system; Z83.3 Family history of diabetes mellitus
CPT/HCPCS: 36415; 36581; 70450; 71045; 80048; 80053; 83735; 85025; 87040; 87070; 90935; 93005; 96365; 99285

== ENCOUNTER 2021-05-14 10:34 | Day surgery (SDC) | payer MEDICARE, BC ==
[2021-05-10 14:23] VITALS: BMI 36.1
[2021-05-14] MEDS ORDERED: LACTATED RINGERS 1,000 ML IV ONE (10:59)
[2021-05-14 11:03] VITALS: TEMP 97.6
[2021-05-14 11:30] LABS: Glucose,Whole Blood 117 mg/dL (75-99)
[2021-05-14] MEDS ORDERED: SODIUM CHLORIDE 0.9% 1,000 ML IV ONE (11:31)
[2021-05-14] MEDS ORDERED: LIDOCAINE 1% (10MG/ML) FOR IV START SQ ONE (11:35)
[2021-05-14] MEDS ORDERED: LEVOFLOXACIN 500MG-D5W PMX 500 MG in DEXTROSE/WATER 1 100ML.BAG IVPB STA (11:43)
--- NOTE | 2021-05-14 12:08 | P.GSHP ---
History of Present Illness H&P Date: 05/14/21 Chief Complaint: Malfunctioning dialysis catheter 60-year-old male known to our service. Patient had previous peritoneal dialysis catheter insertion. Patient was having issues with his dialysis catheter. Unfortunately in the midst of working that up he developed a hemorrhagic stroke. He was seen in the hospital last week. He was noted to have some purulent drainage around the catheter exit site. The incision from the catheter insertion appeared normal. No abdominal pain. After discussion with the patient we decided the best option is to remove the catheter at this time. Denies fevers. Past Medical History Past Medical History: Atrial Fibrillation, CVA/TIA, Diabetes Mellitus, Eye Disorder, GERD/Reflux, Hyperlipidemia, Hypertension, Myocardial Infarction ([place]), Renal Disease, Sleep Apnea/CPAP/BIPAP Additional Past Medical History / Comment(s): CVA 03/28/21 rsulting in brain bleed, impaired speech, patient in wheelchair, can pivot with help. 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 GOUT, renal failure, dialysis MOWEFR. RENAL FAILURE NO CPAP. Last Myocardial Infarction Date:: History of Any Multi-Drug Resistant Organisms: None Reported Past Surgical History: Bariatric Surgery Additional Past Surgical History / Comment(s): GASTRIC SLEEVE 03/2013, EGD, Hemodialysis catheter placement. Past Anesthesia/Blood Transfusion Reactions: Previous Problems w/ Anesthesia Additional Past Anesthesia/Blood Transfusion Reaction / Comment(s): DIFFICULT INTUBATION - FIRST ATTEMPT AT BARIATRIC SURGERY WAS CANCELLED BECAUSE OF IT. LATER ATTRITUBTED TO OBESITY, PT WAS OVER 300LBS. Past Psychological History: No Psychological Hx Reported Smoking Status: Former smoker Past Alcohol Use History: None Reported Additional Past Alcohol Use History / Comment(s): QUIT SMOKING IN 1992. Past Drug Use History: None Reported - Past Family History Mother Family Medical History: Cancer Father Family Medical History: Congestive Heart Failure (CHF), Diabetes Mellitus, Renal Disease Medications and Allergies Home Medications Medication Instructions Recorded Confirmed Type Atorvastatin [Lipitor] 10 mg PO HS 11/13/20 05/10/21 History Cholecalciferol [Vitamin D3 (25 50 mcg PO BID 11/13/20 05/10/21 History Mcg = 1000 Iu)] Furosemide [Lasix] 40 mg PO BID 11/13/20 05/10/21 History Gabapentin [Neurontin] 200 mg PO HS 11/13/20 05/10/21 History Glimepiride [Amaryl] 1 mg PO BID 11/13/20 05/10/21 History Omeprazole [PriLOSEC] 20 mg PO DAILY 11/13/20 05/10/21 History allopurinoL [Zyloprim] 200 mg PO DAILY 11/13/20 05/10/21 History atenoloL 25 mg PO BID 11/13/20 05/10/21 History calcitrioL [Calcitriol] 0.5 mcg PO MOWEFR 11/13/20 05/10/21 History Acetaminophen Tab [Tylenol] 1,000 mg PO Q4H PRN 05/07/21 05/10/21 History Gabapentin [Neurontin] 100 mg PO DAILY@1200 PRN 05/07/21 05/10/21 History Midodrine [ProAmatine] 5 mg PO BID PRN 05/07/21 05/10/21 History Nitroglycerin Sl Tabs [Nitrostat] 0.4 mg SUBLINGUAL Q5M PRN 05/07/21 05/10/21 History Sennosides [Senokot] 8.6 mg PO DAILY PRN 05/07/21 05/10/21 History Tamsulosin HCl [Flomax] 0.4 mg PO HS 05/07/21 05/10/21 History Vit B Complx C/Folic Acid/Zinc 1 tab PO DAILY 05/07/21 05/10/21 History [Renaplex Tablet] Acetaminophen-Codeine 300-30mg 1 - 2 tab PO DAILY PRN 05/10/21 05/10/21 History [Tylenol w/codeine #3] Allergies Allergy/AdvReac Type Severity Reaction Status Date / Time aprepitant [From Emend] Allergy Swelling Verified 05/14/21 10:56 bee venom protein (honey bee) Allergy Anaphylaxis Verified 05/14/21 10:56 fosaprepitant [From Emend] Allergy Swelling Verified 05/14/21 10:56 iodine Allergy Swelling Verified 05/14/21 10:56 Penicillins Allergy Unknown Verified 05/14/21 10:56 Childhood Surgical - Exam Vital Signs Temp Pulse Resp BP Pulse Ox 97.6 F 90 17 120/70 100 05/14/21 11:02 05/14/21 11:02 05/14/21 11:02 05/14/21 11:02 05/14/21 11:02 Physical exam: General: Well-developed, well-nourished HEENT: Normocephalic, sclerae nonicteric Abdomen: Nontender, nondistended, right-sided peritoneal dialysis catheter in place with small on a drainage around it Extremities: Right-sided weakness with mild edema right upper and lower extremity Neuro: Alert and oriented, right-sided weakness Results - Labs 05/14/21 11:29 Abnormal Lab Results - Last 24 Hours (Table) 05/14/21 Range/Units 11:22 POC Glucose (mg/dL) 117 H (75-99) mg/dL Diabetes panel 05/14/21 Range/Units 11:29 Potassium 4.7 (3.5-5.1) mmol/L Pituitary panel 05/14/21 Range/Units 11:29 Potassium 4.7 (3.5-5.1) mmol/L Adrenal panel 05/14/21 Range/Units 11:29 Potassium 4.7 (3.5-5.1) mmol/L Assessment and Plan (1) Peritoneal dialysis catheter dysfunction Narrative/Plan: Will proceed with dialysis catheter removal at this time. We'll culture both external tract and tip of dialysis catheter. Current Visit: No Status: Acute Code(s): T85.611A - BREAKDOWN OF INTRAPERITONEAL DIALYSIS CATHETER, INIT SNOMED Code(s): 377744010
[2021-05-14] MEDS ORDERED: MIDAZOLAM 2 MG/2 ML VIAL ONE (12:45)
[2021-05-14] MEDS ORDERED: fentaNYL (PF) 50 MCG/ML 2 ML AMP ONE (12:45)
[2021-05-14] MEDS ORDERED: KETAMINE 10 MG/ML 20 ML VIAL ONE (12:45)
[2021-05-14] MEDS ORDERED: BUPIVACAIN-EPI 0.25%-1:200,000 30 ML VIAL SQ ONE ×2 (13:05)
[2021-05-14] MEDS ORDERED: NALOXONE 0.4 MG/ML 1 ML VIAL IV PRN (13:49)
[2021-05-14] MEDS ORDERED: traMADol 50 MG TAB PO PRN (13:49)
--- NOTE | 2021-05-14 13:53 | P.OP ---
Date of Procedure: 05/14/21 Procedure(s) Performed: PREOPERATIVE DIAGNOSIS: Rmalfunctioning dialysis catheterilure POSTOPERATIVE DIAGNOSIS: Same PROCEDURE: PD cath removal SURGEON: Luz EBL: 2 mL ANESTHESIA: Sedation and local COMPLICATIONS: None OPERATIVE PROCEDURE: Patient was placed in the supine position. The abdomen was prepped and draped in usual sterile fashion. The previous paramedian incision was re-incised after localizing the skin. The subcutaneous tissues were divided using electrocautery. Blunt dissection around the cuff that was present at the fascia and peritoneum took place. The cuff was fully mobilized. The catheter was removed from the peritonea catheterl cavity. The inner portion of the catheter was sent to pathology for culture. The outer cuff was dissected from the subcutaneous fascia using electrocautery. The catheter was cut on the other side of that cuff and the catheter was removed. this short piece of catheter was also sent for culture. It should be noted that no purulence was seen. Small amount of bloody fluid was seen from the catheter exit site. The wound was irrigated with saline. The fascial defect was closed using a single [id number] 0 Vicryl stitch. The subcutaneous tissues were closed using 3-0 Vicryl sutures and the skin using 4-0 Monocryl sutures. Skin glue and sterile dressings were applied. DISPOSITION: Stable to recovery room
[2021-05-14 14:05] VITALS: BP 107/64; PULSE 82; RESP 18
== END 2021-05-14 14:26 | disposition home or self-care (01) ==
LOC: OR 10:34
PROVIDERS: ATTEND Surgery
DX: T85.611A Breakdown (mechanical) of intraperitoneal dialysis catheter, initial encounter (principal); I48.91 Unspecified atrial fibrillation; K21.9 Gastro-esophageal reflux disease without esophagitis; E78.5 Hyperlipidemia, unspecified; I10 Essential (primary) hypertension; I25.2 Old myocardial infarction; I69.328 Other speech and language deficits following cerebral infarction; Z99.3 Dependence on wheelchair; G47.33 Obstructive sleep apnea (adult) (pediatric); I25.10 Atherosclerotic heart disease of native coronary artery without angina pectoris; I12.0 Hypertensive chronic kidney disease with stage 5 chronic kidney disease or end stage renal disease; N18.6 End stage renal disease; Z99.2 Dependence on renal dialysis; E11.22 Type 2 diabetes mellitus with diabetic chronic kidney disease; E11.319 Type 2 diabetes mellitus with unspecified diabetic retinopathy without macular edema; E11.40 Type 2 diabetes mellitus with diabetic neuropathy, unspecified; M10.9 Gout, unspecified; H54.8 Legal blindness, as defined in USA; Z98.84 Bariatric surgery status; Z87.891 Personal history of nicotine dependence; Z80.9 Family history of malignant neoplasm, unspecified; Z83.3 Family history of diabetes mellitus; Z84.1 Family history of disorders of kidney and ureter; Z79.84 Long term (current) use of oral hypoglycemic drugs; Z79.899 Other long term (current) drug therapy; Z91.030 Bee allergy status; Z88.0 Allergy status to penicillin; Z88.8 Allergy status to other drugs, medicaments and biological substances; Z91.048 Other nonmedicinal substance allergy status
CPT/HCPCS: 84132; 87070; 87075; 49422; J2250; J1956; J3010

== ENCOUNTER 2021-06-06 21:38 | Inpatient (IN) | payer MEDICARE, BC ==
--- NOTE | 2021-06-06 22:08 | ED ---
Chest Pain HPI - General Chief Complaint: Chest Pain Stated Complaint: Chest Pain Time Seen by Provider: 06/06/21 21:41 Source: patient, EMS, RN notes reviewed, old records reviewed Mode of arrival: EMS Limitations: no limitations - History of Present Illness Initial Comments: This is a 4-year-old male DF for evaluation. Patient didn't stay for evaluation regards to chest pain. The chest pain occurred after eating dinner tonight. Pain is resolving on arrival to the emergency department. Patient is no other real abdominal pain. Patient recently had to pack computed tomography scan today and states that symptoms began started after that. Patient denying any chest pain or shortness of breath currently. Patient does have history of H a fibrillation high blood pressure high cholesterol MD Complaint: chest pain -: days(s) Onset: during rest, during exertion Pain Location: substernal Pain Radiation: none Severity: moderate Severity scale (1-10): 4 Quality: tightness, sharp Consistency: intermittent, now resolved Improves With: nothing Worsens With: eating Context: recent illness, recent immobilization Anginal Symptoms: nausea Other Symptoms: acid taste in mouth Treatments Prior to Arrival: none - Related Data Home Medications Medication Instructions Recorded Confirmed Atorvastatin [Lipitor] 10 mg PO HS 11/13/20 05/10/21 Cholecalciferol [Vitamin D3 (25 50 mcg PO BID 11/13/20 05/10/21 Mcg = 1000 Iu)] Furosemide [Lasix] 40 mg PO BID 11/13/20 05/10/21 Gabapentin [Neurontin] 200 mg PO HS 11/13/20 05/10/21 Glimepiride [Amaryl] 1 mg PO BID 11/13/20 05/10/21 Omeprazole [PriLOSEC] 20 mg PO DAILY 11/13/20 05/10/21 allopurinoL [Zyloprim] 200 mg PO DAILY 11/13/20 05/10/21 atenoloL 25 mg PO BID 11/13/20 05/10/21 calcitrioL [Calcitriol] 0.5 mcg PO MOWEFR 11/13/20 05/10/21 Acetaminophen Tab [Tylenol] 1,000 mg PO Q4H PRN 05/07/21 05/10/21 Gabapentin [Neurontin] 100 mg PO DAILY@1200 PRN 05/07/21 05/10/21 Midodrine [ProAmatine] 5 mg PO BID PRN 05/07/21 05/10/21 Nitroglycerin Sl Tabs [Nitrostat] 0.4 mg SUBLINGUAL Q5M PRN 05/07/21 05/10/21 Sennosides [Senokot] 8.6 mg PO DAILY PRN 05/07/21 05/10/21 Tamsulosin HCl [Flomax] 0.4 mg PO HS 05/07/21 05/10/21 Vit B Complx C/Folic Acid/Zinc 1 tab PO DAILY 05/07/21 05/10/21 [Renaplex Tablet] Acetaminophen-Codeine 300-30mg 1 - 2 tab PO DAILY PRN 05/10/21 05/10/21 [Tylenol w/codeine #3] Allergies Allergy/AdvReac Type Severity Reaction Status Date / Time aprepitant [From Emend] Allergy Swelling Verified 06/06/21 21:56 bee venom protein (honey bee) Allergy Anaphylaxis Verified 06/06/21 21:56 fosaprepitant [From Emend] Allergy Swelling Verified 06/06/21 21:56 iodine Allergy Swelling Verified 06/06/21 21:56 Penicillins Allergy Unknown Verified 06/06/21 21:56 Childhood Review of Systems ROS Statement: Those systems with pertinent positive or pertinent negative responses have been documented in the HPI. ROS Other: All systems not noted in ROS Statement are negative. EKG Findings - EKG Comments: EKG Findings:: EKG shows a fib 98 QRS 82 QTc 439 Past Medical History Past Medical History: Atrial Fibrillation, CVA/TIA, Diabetes Mellitus, Eye Disorder, GERD/Reflux, Hyperlipidemia, Hypertension, Myocardial Infarction ([place]), Renal Disease, Sleep Apnea/CPAP/BIPAP Additional Past Medical History / Comment(s): CVA 03/28/21 rsulting in brain bleed, impaired speech, patient in wheelchair, can pivot with help. 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 GOUT, renal failure, dialysis MOWEFR. RENAL FAILURE NO CPAP. Last Myocardial Infarction Date:: History of Any Multi-Drug Resistant Organisms: None Reported Past Surgical History: Bariatric Surgery Additional Past Surgical History / Comment(s): GASTRIC SLEEVE 03/2013, EGD, Hemodialysis catheter placement. Past Anesthesia/Blood Transfusion Reactions: Previous Problems w/ Anesthesia Additional Past Anesthesia/Blood Transfusion Reaction / Comment(s): DIFFICULT INTUBATION - FIRST ATTEMPT AT BARIATRIC SURGERY WAS CANCELLED BECAUSE OF IT. LATER ATTRITUBTED TO OBESITY, PT WAS OVER 300LBS. Past Psychological History: No Psychological Hx Reported Smoking Status: Former smoker Past Alcohol Use History: None Reported Past Drug Use History: None Reported - Past Family History Mother Family Medical History: Cancer Father Family Medical History: Congestive Heart Failure (CHF), Diabetes Mellitus, Renal Disease General Exam General appearance: alert, in no apparent distress Head exam: Present: atraumatic, normocephalic, normal inspection Eye exam: Present: normal appearance, PERRL, EOMI. Absent: scleral icterus, conjunctival injection, periorbital swelling ENT exam: Present: normal exam, mucous membranes moist Neck exam: Present: normal inspection. Absent: tenderness, meningismus, lymphadenopathy Respiratory exam: Present: normal lung sounds bilaterally. Absent: respiratory distress, wheezes, rales, rhonchi, stridor Cardiovascular Exam: Present: regular rate, normal rhythm, normal heart sounds. Absent: systolic murmur, diastolic murmur, rubs, gallop, clicks GI/Abdominal exam: Present: soft, normal bowel sounds. Absent: distended, te nderness, guarding, rebound, rigid Extremities exam: Present: normal inspection, full ROM, normal capillary refill. Absent: tenderness, pedal edema, joint swelling, calf tenderness Back exam: Present: normal inspection Neurological exam: Present: alert, oriented X3, CN II-XII intact Psychiatric exam: Present: normal affect, normal mood Skin exam: Present: warm, dry, intact, normal color. Absent: rash Course Vital Signs 06/06/21 06/06/21 21:54 23:15 Temperature 97.7 F Pulse Rate 103 H 90 Respiratory 18 18 Rate Blood Pressure 146/82 103/91 O2 Sat by Pulse 97 95 Oximetry - Reevaluation(s) Reevaluation #1: 06/06/21 23:20 Medical record is reviewed Reevaluation #2: 06/06/21 23:21 Patient remains without chest pain Reevaluation #3: 06/07/21 00:37 Refusing admission to hospital despite elevated troponin chest pain Reevaluation #4: 06/07/21 00:37 Patient very irritable throughout entire hospitalization Chest Pain MDM - MDM 60 male who did present with chest pain here in the ER CT has dialysis tomorrow he was not found to be in hospital right now very irritated on being in the hospital currently states he is without chest pain he has not had chest pain since his been here [place] Disposition Clinical Impression: Atypical chest pain, Chest pain, ESRD (end stage renal disease) on dialysis Disposition: HOME SELF-CARE Condition: Serious Instructions (If sedation given, give patient instructions): Chest Pain (ED) Is patient prescribed a controlled substance at d/c from ED?: No Referrals: Roosevelt Borges MD [Primary Care Provider] - 1-2 days
--- NOTE | 2021-06-06 22:58 | XR ---
EXAMINATION TYPE: XR chest 2V DATE OF EXAM: 06/06/2021 COMPARISON: 05/07/2021 HISTORY: Chest pain TECHNIQUE: 2 views FINDINGS: There is right central venous catheter with tip in the right atrium. There is some diffuse pulmonary interstitial infiltrate. Costophrenic angles are clear. There are no hilar masses. IMPRESSION: There is interstitial pneumonia which appears new compared to old exam.
[2021-06-06 23:17] LABS: Albumin 4.3 g/dL (3.5-5.0); Calcium 9.4 mg/dL (8.4-10.2); Magnesium 1.9 mg/dL (1.6-2.3); Total Bilirubin 0.9 mg/dL (0.2-1.3); Total Protein 7.5 g/dL (6.3-8.2)
[2021-06-06 23:27] LABS: Potassium 5.9 mmol/L (3.5-5.1)
[2021-06-06 23:31] LABS: Partial Thromboplastin Time 23.4 sec (22.0-30.0); Prothrombin Time 10.8 sec (9.0-12.0)
[2021-06-06] MEDS ORDERED: INSULIN REGULAR 100 UNIT/ML VIAL (IV) IV ONE (23:56)
[2021-06-06 23:57] LABS: Basophils % (A) 0 %; Eosinophils % (A) 0 %; HCT 34.2 % (39.0-53.0); HGB 11.1 gm/dL (13.0-17.5); Lymphocytes # (A) 0.5 k/uL (1.0-4.8); Lymphocytes % (A) 5 %; MCH 33.6 pg (25.0-35.0); MCHC 32.4 g/dL (31.0-37.0); MCV 103.6 fL (80.0-100.0); Macrocytosis Moderate; Mean Platelet Volume 8.3; Monocytes # (A) 0.3 k/uL (0-1.0); Monocytes % (A) 3 %; Neutrophils % (A) 92 %; Platelet Count 221 k/uL (150-450); RDW 15.5 % (11.5-15.5); WBC 10.8 k/uL (3.8-10.6)
[2021-06-06] MEDS ORDERED: INSULIN REGULAR 100 UNIT/ML VIAL (IM/SQ) SQ ONE (23:57)
[2021-06-07] MEDS ORDERED: INSULIN REGULAR 100 UNIT/ML VIAL (IM/SQ) SQ ONE (00:20)
[2021-06-07 01:07] LABS: Glucose,Whole Blood 553 mg/dL (75-99)
[2021-06-07 02:51] LABS: Glucose,Whole Blood 455 mg/dL (75-99)
--- NOTE | 2021-06-07 03:36 | ED ---
Medical Decision Making - Medical Decision Making 60 male who was originally - out AGAINST MEDICAL ADVICE complaints of do a second troponin which came back at 5, is a non-ST elevated [place] brain does show improving prior hemorrhage but not allowing him to be anticoagulation candidate. Patient will be a candidate for cardiology to evaluate and see. - Lab Data Result diagrams: 06/06/21 22:49 06/06/21 22:49 Lab Results 06/06/21 06/06/21 06/06/21 Range/Units 22:49 22:49 22:49 WBC 10.8 H (3.8-10.6) k/uL RBC 3.30 L (4.30-5.90) m/uL Hgb 11.1 L (13.0-17.5) gm/dL Hct 34.2 L (39.0-53.0) % MCV 103.6 H (80.0-100.0) fL MCH 33.6 (25.0-35.0) pg MCHC 32.4 (31.0-37.0) g/dL RDW 15.5 (11.5-15.5) % Plt Count 221 (150-450) k/uL MPV 8.3 Neutrophils % 92 % Lymphocytes % 5 % Monocytes % 3 % Eosinophils % 0 % Basophils % 0 % Neutrophils # 10.0 H (1.3-7.7) k/uL Lymphocytes # 0.5 L (1.0-4.8) k/uL Monocytes # 0.3 (0-1.0) k/uL Eosinophils # 0.0 (0-0.7) k/uL Basophils # 0.0 (0-0.2) k/uL Macrocytosis Moderate PT 10.8 (9.0-12.0) sec INR 1.0 (<1.2) APTT 23.4 (22.0-30.0) sec Sodium 128 L (137-145) mmol/L Potassium 5.9 H (3.5-5.1) mmol/L Chloride 90 L (98-107) mmol/L Carbon Dioxide 24 (22-30) mmol/L Anion Gap 14 mmol/L BUN 45 H (9-20) mg/dL Creatinine 4.09 H (0.66-1.25) mg/dL Est GFR (CKD-EPI)AfAm 17 (>60 ml/min/1.73 sqM) Est GFR (CKD-EPI)NonAf 15 (>60 ml/min/1.73 sqM) Glucose 618 H* (74-99) mg/dL POC Glucose (mg/dL) (75-99) mg/dL POC Glu Loader Demolder ID Calcium 9.4 (8.4-10.2) mg/dL Magnesium 1.9 (1.6-2.3) mg/dL Total Bilirubin 0.9 (0.2-1.3) mg/dL AST 59 (17-59) U/L ALT 28 (4-49) U/L Alkaline Phosphatase 75 (38-126) U/L Creatine Kinase (55-170) U/L CK-MB (CK-2) (0.0-2.4) ng/mL Troponin I (0.000-0.034) ng/mL NT-Pro-B Natriuret Pep pg/mL Total Protein 7.5 (6.3-8.2) g/dL Albumin 4.3 (3.5-5.0) g/dL Lipase 112 (23-300) U/L 06/06/21 06/06/21 06/06/21 Range/Units 22:49 22:49 22:49 WBC (3.8-10.6) k/uL RBC (4.30-5.90) m/uL Hgb (13.0-17.5) gm/dL Hct (39.0-53.0) % MCV (80.0-100.0) fL MCH (25.0-35.0) pg MCHC (31.0-37.0) g/dL RDW (11.5-15.5) % Plt Count (150-450) k/uL MPV Neutrophils % % Lymphocytes % % Monocytes % % Eosinophils % % Basophils % % Neutrophils # (1.3-7.7) k/uL Lymphocytes # (1.0-4.8) k/uL Monocytes # (0-1.0) k/uL Eosinophils # (0-0.7) k/uL Basophils # (0-0.2) k/uL Macrocytosis PT (9.0-12.0) sec INR (<1.2) APTT (22.0-30.0) sec Sodium (137-145) mmol/L Potassium (3.5-5.1) mmol/L Chloride (98-107) mmol/L Carbon Dioxide (22-30) mmol/L Anion Gap mmol/L BUN (9-20) mg/dL Creatinine (0.66-1.25) mg/dL Est GFR (CKD-EPI)AfAm (>60 ml/min/1.73 sqM) Est GFR (CKD-EPI)NonAf (>60 ml/min/1.73 sqM) Glucose (74-99) mg/dL POC Glucose (mg/dL) (75-99) mg/dL POC Glu Loader Demolder ID Calcium (8.4-10.2) mg/dL Magnesium (1.6-2.3) mg/dL Total Bilirubin (0.2-1.3) mg/dL AST (17-59) U/L ALT (4-49) U/L Alkaline Phosphatase (38-126) U/L Creatine Kinase 84 (55-170) U/L CK-MB (CK-2) (0.0-2.4) ng/mL Troponin I 0.153 H* (0.000-0.034) ng/mL NT-Pro-B Natriuret Pep 89662 pg/mL Total Protein (6.3-8.2) g/dL Albumin (3.5-5.0) g/dL Lipase (23-300) U/L 06/06/21 06/07/21 06/07/21 Range/Units 22:49 01:03 02:31 WBC (3.8-10.6) k/uL RBC (4.30-5.90) m/uL Hgb (13.0-17.5) gm/dL Hct (39.0-53.0) % MCV (80.0-100.0) fL MCH (25.0-35.0) pg MCHC (31.0-37.0) g/dL RDW (11.5-15.5) % Plt Count (150-450) k/uL MPV Neutrophils % % Lymphocytes % % Monocytes % % Eosinophils % % Basophils % % Neutrophils # (1.3-7.7) k/uL Lymphocytes # (1.0-4.8) k/uL Monocytes # (0-1.0) k/uL Eosinophils # (0-0.7) k/uL Basophils # (0-0.2) k/uL Macrocytosis PT (9.0-12.0) sec INR (<1.2) APTT (22.0-30.0) sec Sodium (137-145) mmol/L Potassium (3.5-5.1) mmol/L Chloride (98-107) mmol/L Carbon Dioxide (22-30) mmol/L Anion Gap mmol/L BUN (9-20) mg/dL Creatinine (0.66-1.25) mg/dL Est GFR (CKD-EPI)AfAm (>60 ml/min/1.73 sqM) Est GFR (CKD-EPI)NonAf (>60 ml/min/1.73 sqM) Glucose (74-99) mg/dL POC Glucose (mg/dL) 553 H (75-99) mg/dL POC Glu Loader Demolder ID Orestes, Lenore Calcium (8.4-10.2) mg/dL Magnesium (1.6-2.3) mg/dL Total Bilirubin (0.2-1.3) mg/dL AST (17-59) U/L ALT (4-49) U/L Alkaline Phosphatase (38-126) U/L Creatine Kinase (55-170) U/L CK-MB (CK-2) 2.5 H (0.0-2.4) ng/mL Troponin I 5.350 H* (0.000-0.034) ng/mL NT-Pro-B Natriuret Pep pg/mL Total Protein (6.3-8.2) g/dL Albumin (3.5-5.0) g/dL Lipase (23-300) U/L 06/07/21 Range/Units 02:50 WBC (3.8-10.6) k/uL RBC (4.30-5.90) m/uL Hgb (13.0-17.5) gm/dL Hct (39.0-53.0) % MCV (80.0-100.0) fL MCH (25.0-35.0) pg MCHC (31.0-37.0) g/dL RDW (11.5-15.5) % Plt Count (150-450) k/uL MPV Neutrophils % % Lymphocytes % % Monocytes % % Eosinophils % % Basophils % % Neutrophils # (1.3-7.7) k/uL Lymphocytes # (1.0-4.8) k/uL Monocytes # (0-1.0) k/uL Eosinophils # (0-0.7) k/uL Basophils # (0-0.2) k/uL Macrocytosis PT (9.0-12.0) sec INR (<1.2) APTT (22.0-30.0) sec Sodium (137-145) mmol/L Potassium (3.5-5.1) mmol/L Chloride (98-107) mmol/L Carbon Dioxide (22-30) mmol/L Anion Gap mmol/L BUN (9-20) mg/dL Creatinine (0.66-1.25) mg/dL Est GFR (CKD-EPI)AfAm (>60 ml/min/1.73 sqM) Est GFR (CKD-EPI)NonAf (>60 ml/min/1.73 sqM) Glucose (74-99) mg/dL POC Glucose (mg/dL) 455 H (75-99) mg/dL POC Glu Loader Demolder ID Yarelis Price Calcium (8.4-10.2) mg/dL Magnesium (1.6-2.3) mg/dL Total Bilirubin (0.2-1.3) mg/dL AST (17-59) U/L ALT (4-49) U/L Alkaline Phosphatase (38-126) U/L Creatine Kinase (55-170) U/L CK-MB (CK-2) (0.0-2.4) ng/mL Troponin I (0.000-0.034) ng/mL NT-Pro-B Natriuret Pep pg/mL Total Protein (6.3-8.2) g/dL Albumin (3.5-5.0) g/dL Lipase (23-300) U/L - EKG Data -: EKG Interpreted by Me (Repeat EKG shows A. fib RVR 101 QRS [address] elevation, morphology ) - Radiology Data Radiology results: report reviewed (CT brain does show likely resolving prior hemorrhage), image reviewed Critical Care Time Critical Care Time: Yes Total Critical Care Time: 31 Disposition Clinical Impression: Atypical chest pain, Chest pain, ESRD (end stage renal disease) on dialysis, Acute non-ST elevation myocardial infarction (NSTEMI) Disposition: ADMITTED IP TO THIS HOSP Condition: Serious Instructions (If sedation given, give patient instructions): Chest Pain (ED) Is patient prescribed a controlled substance at d/c from ED?: No Referrals: Roosevelt Borges MD [Primary Care Provider] - 1-2 days
--- NOTE | 2021-06-07 04:50 | CT ---
EXAMINATION TYPE: CT brain wo con DATE OF EXAM: 06/07/2021 COMPARISON: 05/08/2021 HISTORY: Pain CT DLP: 1134.4 mGycm Automated exposure control for dose reduction was used. The ventricles and sulci appear normal for age. There is no mass effect nor midline shift. There is n o sign of intracranial hemorrhage. Calvarium is intact. Skull base is intact. There is some subtle hy podensity in the white matter left posterior centrum semiovale which is poorly marginated. No mass ef fect. IMPRESSION: There is some white matter hypodensity and hyperdensity in the left centrum semiovale and left thalam us which is improved compared to last exam and could relate to resolving ischemia.. No evidence of a new abnormality.
[2021-06-07] MEDS ORDERED: MORPHINE SULFATE 4 MG/ML SYRINGE IV PRN (04:54)
[2021-06-07] MEDS ORDERED: NITROGLYCERIN SL TABS 0.4 MG TAB SUBLINGUAL PRN ×2 (04:54→09:50)
[2021-06-07] MEDS ORDERED: ASPIRIN 81 MG PO STA (04:54)
[2021-06-07 09:35] LABS: Glucose,Whole Blood 365 mg/dL (75-99)
[2021-06-07] MEDS ORDERED: SENNOSIDES 8.6 MG TAB PO PRN (09:50)
[2021-06-07] MEDS ORDERED: ACETAMINOPHEN TAB 500 MG TAB PO PRN (09:50)
[2021-06-07] MEDS ORDERED: PANTOPRAZOLE 40 MG/10 ML VIAL IVP SCH (10:00)
--- NOTE | 2021-06-07 10:30 | P.HPIM ---
History of Present Illness This is a pleasant 60 years old male with past medical history of end-stage renal disease on hemodialysis , Atrial Fibrillation not on anticoagulation , CVA/TIA, Diabetes Mellitus,m GERD, Hyperlipidemia, Hypertension, Sleep Apnea/C PAP/BIPAP, CVA 03/28/21 rsulting in brain bleed, impaired speech, patient in wheelchair, , LEGALLY BLIND DUE TO DIABETIC RETINOPATHY, DIABETIC NEUROPATHY. GOUT 3 at his patient of Dr. Loo. Dr. Hanson and maintenance shop laborer Dr. Boyd. Patient states that he wasn't sure if he had CABG but that was 10 years ago. Patient was sitting at the bed edge, looks somewhat upset by the fact he was kept in the hospital This patient presents because of central, nonradiating chest pain of 2 hours situation felt like pressure about 10/10 in severity but now is completely resolved 0/10. His blood pressure checked at home by his which is at bedside states that 177/107, Associated with orthopnea and paroxysmal nocturnal dyspnea for the last few days but patient did not specify. With no associated coughing. No headache or palpitation or dizziness. No diarrhea or vomiting. No urinary complaints Patient yesterday went to have CAT scan and this facility because an outpatient setting for ongoing epigastric abdominal pain for the last 3 weeks,, he had developed preparation for the CT angiogram including Solu-Medrol. And when he went home he started having this chest pain. 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 Patient states that his sugar is controlled at home with Amaryl Patient is able to make urine once or twice a day and with no complaints black no dysuria or urgency. Patient denies smoking, alcohol or illicit drugs. There was an coumadine blood loss was stopped when he had a hemorrhagic stroke about 2 months ago, now with residual right hemiparesis and swollen right upper lower extremities. His speech is much improved and almost back to normal. No slurred speech. No blurred vision. No headache or dizziness currently. Vitas looks stable, blood pressure 129/79, breathing rate 20, afebrile and saturating 95% on room air. WBC is 10.8, hemoglobin 11.1, platelet count is normal. INR is 1.0. Sodium 128, potassium 5.9, creatinine 4.09, glucose 618. Liver enzymes not elevated, bilirubin is normal at 0.9, creatinine kinase 84, proBNP 13,600. Lipase normal. Troponin elevated 0.15, went up to 5.3 and repeat troponin is 8.6 this morning. EKG showing atrial fibrillation's with RVR at rate of 101 with QTC [address]-T changes. Chest x-ray: There is interstitial pneumonitis with appears new compared to old exam CT of the brain: There is some white matter hypodensity and hyperdensity in the left central subareolar well and left thalamus which is improved compared to last exam and chordee related to resolving ischemia. No evidence of new ab normal In the emergency room patient was started on aspirin 325 mg Cardiology and nephrology team were consulted. Patient this morning kept himself nothing by mouth Review of Systems CONSTITUTIONAL: No fever, no malaise, no fatigue. HEENT: No recent visual problems or hearing problems. Denied any sore throat. CARDIOVASCULAR: no palpitations, no syncope. PULMONARY:no cough, no hemoptysis. GASTROINTESTINAL: No diarrhea, no nausea, no vomiting, no abdominal pain. Normoactive bowel sounds. NEUROLOGICAL: No headaches, no new or acute weakness, no numbness. HEMATOLOGICAL: Denies any bleeding or petechiae. GENITOURINARY: Denies any burning micturition, frequency, or urgency. MUSCULOSKELETAL/RHEUMATOLOGICAL: Denies any joint pain, swelling, or any muscle pain. ENDOCRINE: Denies any polyuria or polydipsia. Past Medical History Past Medical History: Atrial Fibrillation, CVA/TIA, Diabetes Mellitus, Eye Disorder, GERD/Reflux, Hyperlipidemia, Hypertension, Myocardial Infarction ([place]), Renal Disease, Sleep Apnea/CPAP/BIPAP Additional Past Medical History / Comment(s): CVA 03/28/21 rsulting in brain bleed, impaired speech, patient in wheelchair, can pivot with help. 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 GOUT, renal failure, dialysis MOWEFR. RENAL FAILURE NO CPAP. Last Myocardial Infarction Date:: History of Any Multi-Drug Resistant Organisms: None Reported Past Surgical History: Bariatric Surgery Additional Past Surgical History / Comment(s): GASTRIC SLEEVE 03/2013, EGD, Hemodialysis catheter placement. Past Anesthesia/Blood Transfusion Reactions: Previous Problems w/ Anesthesia Additional Past Anesthesia/Blood Transfusion Reaction / Comment(s): DIFFICULT INTUBATION - FIRST ATTEMPT AT BARIATRIC SURGERY WAS CANCELLED BECAUSE OF IT. LATER ATTRITUBTED TO OBESITY, PT WAS OVER 300LBS. Past Psychological History: No Psychological Hx Reported Smoking Status: Former smoker Past Alcohol Use History: None Reported Past Drug Use History: None Reported - Past Family History Mother Family Medical History: Cancer Father Family Medical History: Congestive Heart Failure (CHF), Diabetes Mellitus, Renal Disease Medications and Allergies Home Medications Medication Instructions Recorded Confirmed Type Atorvastatin [Lipitor] 10 mg PO HS 11/13/20 06/07/21 History Cholecalciferol [Vitamin D3 (25 50 mcg PO BID 11/13/20 06/07/21 History Mcg = 1000 Iu)] Furosemide [Lasix] 40 mg PO BID 11/13/20 06/07/21 History Gabapentin [Neurontin] 200 mg PO HS 11/13/20 06/07/21 History Glimepiride [Amaryl] 1 mg PO BID 11/13/20 06/07/21 History Omeprazole [PriLOSEC] 20 mg PO DAILY 11/13/20 06/07/21 History allopurinoL [Zyloprim] 200 mg PO DAILY 11/13/20 06/07/21 History atenoloL 25 mg PO BID 11/13/20 06/07/21 History calcitrioL [Calcitriol] 0.5 mcg PO MOWEFR 11/13/20 06/07/21 History Acetaminophen Tab [Tylenol] 1,000 mg PO Q4H PRN 05/07/21 06/07/21 History Midodrine [ProAmatine] 5 mg PO BID PRN 05/07/21 06/07/21 History Nitroglycerin Sl Tabs [Nitrostat] 0.4 mg SUBLINGUAL Q5M PRN 05/07/21 06/07/21 History Sennosides [Senokot] 8.6 mg PO DAILY PRN 05/07/21 06/07/21 History Vit B Complx C/Folic Acid/Zinc 1 tab PO DAILY 05/07/21 06/07/21 History [Renaplex Tablet] Gabapentin [Neurontin] 100 mg PO DAILY@1200 PRN 06/07/21 06/07/21 History Allergies Allergy/AdvReac Type Severity Reaction Status Date / Time aprepitant [From Emend] Allergy Swelling Verified 06/07/21 07:53 bee venom protein (honey bee) Allergy Anaphylaxis Verified 06/07/21 07:53 fosaprepitant [From Emend] Allergy Swelling Verified 06/07/21 07:53 iodine Allergy Swelling Verified 06/07/21 07:53 Penicillins Allergy Unknown Verified 06/07/21 07:53 Childhood Physical Exam Vitals: Vital Signs Temp Pulse Resp BP Pulse Ox 06/07/21 06:21 83 20 129/79 98 06/06/21 23:15 90 18 103/91 95 06/06/21 21:54 97.7 F 103 H 18 146/82 97 Intake and Output 06/06/21 06/07/21 06/07/21 22:59 06:59 14:59 Other: Weight 105.233 kg -GENERAL: The patient is alert and oriented x3, not in any acute distress. Obese HEENT: Pupils are round and equally reacting to light. EOMI. No scleral icterus. No conjunctival pallor. Normocephalic, atraumatic. No pharyngeal erythema. No thyromegaly. CARDIOVASCULAR: S1 and S2 present. No murmurs, rubs, or gallops. -PULMONARY: Chest is clear to auscultation, no wheezing bilateral basal medication Abdomen: Soft, nontender, nondistended, normoactive bowel sounds. No palpable organomegaly. MUSCULOSKELETAL: No joint swelling or deformity. -EXTREMITIES: No cyanosis, clubbing. Bilateral pitting leg edema -NEUROLOGICAL: Cranial nerves grossly intact. Chronic right hemiparesis, he can move right R arm and leg very little. No weakness on the left side SKIN: No rashes. No petechiae Results CBC & Chem 7: 06/06/21 22:49 06/06/21 22:49 Labs: Abnormal Lab Results - Last 24 Hours (Table) 06/06/21 06/06/21 06/06/21 Range/Units 22:49 22:49 22:49 WBC 10.8 H (3.8-10.6) k/uL RBC 3.30 L (4.30-5.90) m/uL Hgb 11.1 L (13.0-17.5) gm/dL Hct 34.2 L (39.0-53.0) % MCV 103.6 H (80.0-100.0) fL Neutrophils # 10.0 H (1.3-7.7) k/uL Lymphocytes # 0.5 L (1.0-4.8) k/uL Sodium 128 L (137-145) mmol/L Potassium 5.9 H (3.5-5.1) mmol/L Chloride 90 L (98-107) mmol/L BUN 45 H (9-20) mg/dL Creatinine 4.09 H (0.66-1.25) mg/dL Glucose 618 H* (74-99) mg/dL POC Glucose (mg/dL) (75-99) mg/dL CK-MB (CK-2) (0.0-2.4) ng/mL Troponin I 0.153 H* (0.000-0.034) ng/mL 06/06/21 06/07/21 06/07/21 Range/Units 22:49 01:03 02:31 WBC (3.8-10.6) k/uL RBC (4.30-5.90) m/uL Hgb (13.0-17.5) gm/dL Hct (39.0-53.0) % MCV (80.0-100.0) fL Neutrophils # (1.3-7.7) k/uL Lymphocytes # (1.0-4.8) k/uL Sodium (137-145) mmol/L Potassium (3.5-5.1) mmol/L Chloride (98-107) mmol/L BUN (9-20) mg/dL Creatinine (0.66-1.25) mg/dL Glucose (74-99) mg/dL POC Glucose (mg/dL) 553 H (75-99) mg/dL CK-MB (CK-2) 2.5 H (0.0-2.4) ng/mL Troponin I 5.350 H* (0.000-0.034) ng/mL 06/07/21 06/07/21 06/07/21 Range/Units 02:50 06:56 09:34 WBC (3.8-10.6) k/uL RBC (4.30-5.90) m/uL Hgb (13.0-17.5) gm/dL Hct (39.0-53.0) % MCV (80.0-100.0) fL Neutrophils # (1.3-7.7) k/uL Lymphocytes # (1.0-4.8) k/uL Sodium (137-145) mmol/L Potassium (3.5-5.1) mmol/L Chloride (98-107) mmol/L BUN (9-20) mg/dL Creatinine (0.66-1.25) mg/dL Glucose (74-99) mg/dL POC Glucose (mg/dL) 455 H 365 H (75-99) mg/dL CK-MB (CK-2) (0.0-2.4) ng/mL Troponin I 8.680 H* (0.000-0.034) ng/mL Assessment and Plan Assessment: Elevated troponin, suspected non-STEMI Acute on chronic congestive heart failure End-stage renal disease on hemodialysis hyponatremia 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, with right hemiparesis, wtih impaired speech, patient in wheelchair History of atrial fibrillation not on anticoagulation Diabetes Mellitus with hyperglycemia GERD Hyperlipidemia Hypertension Sleep Apnea/CPAP/BIPAP LEGALLY BLIND DUE TO DIABETIC RETINOPATHY DIABETIC NEUROPATHY Summary of GOUT Obesity with BMI of 36.3 Plan: This is a pleasant 60 years old male with end-stage renal disease who presents with non-STEMI Consults cardiology team, we will defer the decision about aspirin and anticoagulation to the cardiology team Switch oral Lasix and to IV Lasix. Monitor input and output and electrolytes Nephrology consult Insulin sliding scale patient and at bedside agree they don't want to start anticoagulation for now for recent history of brain bleed and they want to wait for maintenance shop laborer. I talked to the bedside nurse to inform maintenance shop laborer about this patient Labs and medication were reviewed.. Continue same treatment. Continue with symptomatic treatment. Resume home medication. Monitor lytes and vitals. DVT and GI prophylaxis. Further recommendations depends on the clinical course of the patient prognosis is guarded Discussed with bed side nurse
[2021-06-07] MEDS: FUROSEMIDE 10 MG/ML 4 ML VIAL IV SCH ×2 (10:53→21:40)
[2021-06-07 11:57] LABS: Glucose,Whole Blood 299 mg/dL (75-99)
[2021-06-07] MEDS ORDERED: GABAPENTIN 100 MG CAP PO PRN (12:00)
--- NOTE | 2021-06-07 12:12 | ECHOF ---
Referral Reason:chest pain MEASUREMENTS -------- HEIGHT: 170.2 cm WEIGHT: 105.2 kg BP: 128/80 IVSd: 1.6 cm (0.6 - 1.1) LVIDd: 3.7 cm (3.9 - 5.3) LVPWd: 1.5 cm (0.6 - 1.1) IVSs: 2.1 cm LVIDs: 2.5 cm LVPWs: 1.9 cm LAESV Index (A-L): 39.29 ml/m Ao Diam: 3.3 cm (2.0 - 3.7) AV Cusp: 2.0 cm (1.5 - 2.6) LA Diam: 4.1 cm (2.7 - 3.8) MV EXCURSION: 16.144 mm (> 18.000) MV EF SLOPE: 60 mm/s (70 - 150) EPSS: 0.4 cm RAP: 5.00 mmHg RVSP: 26.07 mmHg FINDINGS -------- Atrial fibrillation. This was a technically difficult study with suboptimal apical views. The left ventricular size is normal. There is moderate concentric left ventricular hypertrophy. O verall left ventricular systolic function is normal with, an EF between 55 - 60 %. The RV was not well visualized. LA is moderately dilated 34-39 ml/m2 The right atrium was not well visualized. 4.0mg of Lumason was utilized for enhancement of images Interatrial and interventricular septum intact. The aortic valve is trileaflet and appears structurally normal. There is mild aortic valve sclerosi s. There is no evidence of aortic regurgitation. There is no evidence of aortic stenosis. Mild mitral regurgitation is present. Mild tricuspid regurgitation present. There is no evidence of pulmonary hypertension. The right v entricular systolic pressure, as measured by Doppler, is 26.07mmHg. There is no pulmonic regurgitation present. The aortic root size is normal. IVC Not well visulized. Echo free space represents a pericardial fat pad. There is no pericardial effusion. CONCLUSIONS -------- 1. The left ventricular size is normal. 2. There is moderate concentric left ventricular hypertrophy. 3. Overall left ventricular systolic function is normal with, an EF between 55 - 60 %. 4. LA is moderately dilated 34-39 ml/m2 5. There is mild aortic valve sclerosis. 6. Mild mitral regurgitation is present. 7. Mild tricuspid regurgitation present. DYE AUTOMATION OPERATOR: Asha Dobbs RDCS
--- NOTE | 2021-06-07 12:15 | P.NPCON ---
History of Present Illness - Reason for Consult Consult date: 06/07/21 end stage renal disease - Chief Complaint Chest pain - History of Present Illness ESRD hemodialysis, Thursday at [facility] under the care of Dr. Hanson. Coming to the hospital with chest pain. He is on hemodialysis since November 2020, para to that was on peritoneal dialysis. Recently admitted with stroke and intracranial bleed, and decortication was stopped and he had recurrent catheter dysfunctions. And she no active chest pains undergoing echocardiogram. Family at bedside. Review of Systems Constitutional: Reports as per HPI Past Medical History Past Medical History: Atrial Fibrillation, CVA/TIA, Diabetes Mellitus, Eye Disorder, GERD/Reflux, Hyperlipidemia, Hypertension, Myocardial Infarction ([place]), Renal Disease, Sleep Apnea/CPAP/BIPAP Additional Past Medical History / Comment(s): CVA 03/28/21 rsulting in brain bleed, impaired speech, patient in wheelchair, can pivot with help. 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 GOUT, renal failure, dialysis MOWEFR. RENAL FAILURE NO CPAP. Last Myocardial Infarction Date:: History of Any Multi-Drug Resistant Organisms: None Reported Past Surgical History: Bariatric Surgery Additional Past Surgical History / Comment(s): GASTRIC SLEEVE 03/2013, EGD, Hemodialysis catheter placement. Past Anesthesia/Blood Transfusion Reactions: Previous Problems w/ Anesthesia Additional Past Anesthesia/Blood Transfusion Reaction / Comment(s): DIFFICULT INTUBATION - FIRST ATTEMPT AT BARIATRIC SURGERY WAS CANCELLED BECAUSE OF IT. LATER ATTRITUBTED TO OBESITY, PT WAS OVER 300LBS. Past Psychological History: No Psychological Hx Reported Smoking Status: Former smoker Past Alcohol Use History: None Reported Past Drug Use History: None Reported - Past Family History Mother Family Medical History: Cancer Father Family Medical History: Congestive Heart Failure (CHF), Diabetes Mellitus, Renal Disease Medications and Allergies Home Medications Medication Instructions Recorded Confirmed Type Atorvastatin [Lipitor] 10 mg PO HS 11/13/20 06/07/21 History Cholecalciferol [Vitamin D3 (25 50 mcg PO BID 11/13/20 06/07/21 History Mcg = 1000 Iu)] Furosemide [Lasix] 40 mg PO BID 11/13/20 06/07/21 History Gabapentin [Neurontin] 200 mg PO HS 11/13/20 06/07/21 History Glimepiride [Amaryl] 1 mg PO BID 11/13/20 06/07/21 History Omeprazole [PriLOSEC] 20 mg PO DAILY 11/13/20 06/07/21 History allopurinoL [Zyloprim] 200 mg PO DAILY 11/13/20 06/07/21 History atenoloL 25 mg PO BID 11/13/20 06/07/21 History calcitrioL [Calcitriol] 0.5 mcg PO MOWEFR 11/13/20 06/07/21 History Acetaminophen Tab [Tylenol] 1,000 mg PO Q4H PRN 05/07/21 06/07/21 History Midodrine [ProAmatine] 5 mg PO BID PRN 05/07/21 06/07/21 History Nitroglycerin Sl Tabs [Nitrostat] 0.4 mg SUBLINGUAL Q5M PRN 05/07/21 06/07/21 History Sennosides [Senokot] 8.6 mg PO DAILY PRN 05/07/21 06/07/21 History Vit B Complx C/Folic Acid/Zinc 1 tab PO DAILY 05/07/21 06/07/21 History [Renaplex Tablet] Gabapentin [Neurontin] 100 mg PO DAILY@1200 PRN 06/07/21 06/07/21 History Allergies Allergy/AdvReac Type Severity Reaction Status Date / Time aprepitant [From Emend] Allergy Swelling Verified 06/07/21 07:53 bee venom protein (honey bee) Allergy Anaphylaxis Verified 06/07/21 07:53 fosaprepitant [From Emend] Allergy Swelling Verified 06/07/21 07:53 iodine Allergy Swelling Verified 06/07/21 07:53 Penicillins Allergy Unknown Verified 06/07/21 07:53 Childhood Physical Exam Vitals: Vital Signs Temp Pulse Pulse Resp BP BP Pulse Ox 06/07/21 09:55 97.7 F 83 16 144/102 90 L 06/07/21 06:21 83 20 129/79 98 06/06/21 23:15 90 18 103/91 95 06/06/21 21:54 97.7 F 103 H 18 146/82 97 Intake and Output 06/06/21 06/07/21 06/07/21 22:59 06:59 14:59 Other: Weight 105.233 kg No acute distress S1-S2 heard Decreased breath sounds Right jugular permacath No edema Results - Lab Results Most recent lab results Calcium 9.4 mg/dL (8.4-10.2) 06/06/21 22:49 Magnesium 1.9 mg/dL (1.6-2.3) 06/06/21 22:49 06/06/21 22:49 06/06/21 22:49 Assessment and Plan Assessment: #1 chest pain rule out ACS. #2 ESRD on hemodialysis, MWF , right jugular permacath #3 hypertension with ESRD #4 anemia with ESRD #5 metabolic bone disease with ESRD #6 recent CVA with the IC bleed. Repeat computed tomography scan stable. Plan: #1 hemodialysis today as per outpatient schedule. Plan for today, 2 k bath. #3 ESRD medications
[2021-06-07 14:19] LABS: Glucose,Whole Blood 336 mg/dL (75-99)
[2021-06-07] MEDS: INSULIN ASPART (NovoLOG) 100 UNIT/ML VIAL SQ SCH ×3 (14:25→22:55)
--- NOTE | 2021-06-07 15:39 | P.CNNES ---
History of Present Illness Consult date: 06/07/21 Requesting physician: Richard E Sheet Reason for Consult: risk assessment for cardiac cath History of Present Illness: This is a 58-year-old gentleman with history of intraparenchymal hemorrhage over the left thalamus (on 03/28/2021) likely due to uncontrolled hypertension with significant residual right hemiparesis, atrial fibrillation not on anticoagulation, diabetes mellitus, hypertension diabetic retinopathy, diabetic neuropathy, end-stage renal disease on dialysis, hypertension, hyperlipidemia, history of myocardial infarction 2 who presented emergency department on 06/07/2021 because of chest pain. Neurology is consulted for assessment for cardiac cath special with a history of intraparenchymal bleed. Patient was found to have elevated troponin during this admission. He is not on any anticoagulation or antiplatelet. The patient is on the Lipitor 10 mg daily at bedtime. I personally saw the patient last on 05/08/2021 and at that time the patient had a recent intra-parenchymal hemorrhage over the left thalamus on 03/28/2021 to 2 hypertension and anticoagulation but I felt was more due to uncontrolled hypertension. Patient had the workup at outside facility no intervention at. Patient anticoagulation at that time was stopped he was on Coumadin because of the his bleed that. Upon talking to the patient and his they were not interested of restarting anticoagulation but I defer that dec ision to his house rn Dr. Boyd. I notified the patient to follow-up with his neurologist as an outpatient. Please refer to my notes for further details. Patient is accompanied with his (who is at bedside) and he states there is improvement in some movement over the right side but continues to be weak (upper > lower). He denies of any new neurological problems. He has not followed-up with neurologist since I have seen him in the hospital last. He has not followed-up with his house rn as well. He is not taking any antiplatelets or anticoagulation. Some of the workup in the hospital consisted of: Initial vital signs blood pressure 146/82, heart rate of 103, respiratory of 18, temperature of 97.7 Fahrenheit oral pulse ox of 97% on 2L NC. Hemoglobin is 11.1 hematocrit is 34.2 and a platelet is the 20 21,000. Sodium was 128, creatinine is 4.09, initial serum glucose is 618 (and received prednisone) for imaging, calcified not 0.4, magnesium is 1.9, AST is 59, ALT 28. Troponin on initial presentation his 0.153 and was trending up on the most recent one is 7.950. Ordonez virus PCR was not detected. PT is 10.8, INR is 1.0, PTT is 23.4 CT of the head is reported as there is some white matter hypodensity in hyperdensity in the left centrum semiovale and the left thalamus which is improved compared to last exam and could relate to resolving ischemia. No evidence of a new abnormality. I personally reviewed the CT of the head there is no acute or subacute ischemia. There is no acute or subacute intraparenchymal hemorrhage. 2-D echo was reported as mild concentric left ventricular hypertrophy. Ejection fraction for of 55-60%. Left atrium is moderately dilated. Review of Systems Review of system: The 12 point system was reviewed and apparent positive and negative per HPI. Past Medical History Past Medical History: Atrial Fibrillation, CVA/TIA, Diabetes Mellitus, Eye Diso rder, GERD/Reflux, Hyperlipidemia, Hypertension, Myocardial Infarction ([place]), Renal Disease, Sleep Apnea/CPAP/BIPAP Additional Past Medical History / Comment(s): CVA 03/28/21 rsulting in brain bleed, impaired speech, patient in wheelchair, can pivot with help. 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 GOUT, renal failure, dialysis MOWEFR. RENAL FAILURE NO CPAP. Last Myocardial Infarction Date:: History of Any Multi-Drug Resistant Organisms: None Reported Past Surgical History: Bariatric Surgery Additional Past Surgical History / Comment(s): GASTRIC SLEEVE 03/2013, EGD, Hemodialysis catheter placement. Past Anesthesia/Blood Transfusion Reactions: Previous Problems w/ Anesthesia Additional Past Anesthesia/Blood Transfusion Reaction / Comment(s): DIFFICULT INTUBATION - FIRST ATTEMPT AT BARIATRIC SURGERY WAS CANCELLED BECAUSE OF IT. LATER ATTRITUBTED TO OBESITY, PT WAS OVER 300LBS. Past Psychological History: No Psychological Hx Reported Smoking Status: Former smoker Past Alcohol Use History: None Reported Past Drug Use History: None Reported - Past Family History Mother Family Medical History: Cancer Father Family Medical History: Congestive Heart Failure (CHF), Diabetes Mellitus, Renal Disease Medications and Allergies Home Medications Medication Instructions Recorded Confirmed Type Atorvastatin [Lipitor] 10 mg PO HS 11/13/20 06/07/21 History Cholecalciferol [Vitamin D3 (25 50 mcg PO BID 11/13/20 06/07/21 History Mcg = 1000 Iu)] Furosemide [Lasix] 40 mg PO BID 11/13/20 06/07/21 History Gabapentin [Neurontin] 200 mg PO HS 11/13/20 06/07/21 History Glimepiride [Amaryl] 1 mg PO BID 11/13/20 06/07/21 History Omeprazole [PriLOSEC] 20 mg PO DAILY 11/13/20 06/07/21 History allopurinoL [Zyloprim] 200 mg PO DAILY 11/13/20 06/07/21 History atenoloL 25 mg PO BID 11/13/20 06/07/21 History calcitrioL [Calcitriol] 0.5 mcg PO MOWEFR 11/13/20 06/07/21 History Acetaminophen Tab [Tylenol] 1,000 mg PO Q4H PRN 05/07/21 06/07/21 History Midodrine [ProAmatine] 5 mg PO BID PRN 05/07/21 06/07/21 History Nitroglycerin Sl Tabs [Nitrostat] 0.4 mg SUBLINGUAL Q5M PRN 05/07/21 06/07/21 History Sennosides [Senokot] 8.6 mg PO DAILY PRN 05/07/21 06/07/21 History Vit B Complx C/Folic Acid/Zinc 1 tab PO DAILY 05/07/21 06/07/21 History [Renaplex Tablet] Gabapentin [Neurontin] 100 mg PO DAILY@1200 PRN 06/07/21 06/07/21 History Allergies Allergy/AdvReac Type Severity Reaction Status Date / Time aprepitant [From Emend] Allergy Swelling Verified 06/07/21 07:53 bee venom protein (honey bee) Allergy Anaphylaxis Verified 06/07/21 07:53 fosaprepitant [From Emend] Allergy Swelling Verified 06/07/21 07:53 iodine Allergy Swelling Verified 06/07/21 07:53 Penicillins Allergy Unknown Verified 06/07/21 07:53 Childhood Physical Examination - Vital Signs Vital Signs: Vital Signs Temp Pulse Pulse Resp BP BP Pulse Ox 06/07/21 14:00 79 16 06/07/21 11:10 97.7 F 79 16 128/80 99 06/07/21 09:55 97.7 F 83 16 144/102 90 L 06/07/21 06:21 83 20 129/79 98 06/06/21 23:15 90 18 103/91 95 06/06/21 21:54 97.7 F 103 H 18 146/82 97 Intake and Output 06/06/21 06/07/21 06/07/21 22:59 06:59 14:59 Other: # Voids 1 Weight 105.233 kg GENERAL: The patient is lying in bed and is not in acute distress. CHEST: The heart rate is regular rate rhythm. No murmurs to auscultation. LUNG: Clear to auscultation bilaterally no wheezing noted throughout. Not labored breathing. ABDOMEN/GI: Bowel sounds present in all 4 quadrants. No tenderness to palpation throughout. NEUROLOGICAL: Higher mental function: The patient is awake, alert, oriented to self, place and time. Patient is following commands. No aphasia and no neglect. Cranial nerves: The pupils are round, equal and reactive to light and accommodation. Visual greenberg are full to confrontation throughout. Extraocular movement is intact no nystagmus is noted. Facial sensation is normal to touch throughout. The facial strength is normal throughout. Hearing is normal bilaterally to hand rub. Tongue is midline and moved [id number] without any difficulty. No dysarthria is noted. Shoulder shrug is normal bilaterally. Motor: Gait is deferred. The strength is right proximal upper extremity is 2/5 and brief able to lift above gravity. While right lower is 3-4. Left side is 5/5. Decrease tone over the right side. Normal bulk. Cerebellum: Normal finger to nose over the left. Sensation: Sensation is normal to touch throughout. Reflexes (right/left): 2+ throughout while lowers are 1+ throughout. Plantars are mute bilaterally. Results - Laboratory Findings CBC and BMP: 06/06/21 22:49 06/06/21 22:49 Abnormal Lab Findings: Abnormal Labs 06/06/21 06/06/21 06/06/21 22:49 22:49 22:49 WBC 10.8 H RBC 3.30 L Hgb 11.1 L Hct 34.2 L MCV 103.6 H Neutrophils # 10.0 H Lymphocytes # 0.5 L Sodium 128 L Potassium 5.9 H Chloride 90 L BUN 45 H Creatinine 4.09 H Glucose 618 H* POC Glucose (mg/dL) CK-MB (CK-2) Troponin I 0.153 H* 06/06/21 06/07/21 06/07/21 22:49 01:03 02:31 WBC RBC Hgb Hct MCV Neutrophils # Lymphocytes # Sodium Potassium Chloride BUN Creatinine Glucose POC Glucose (mg/dL) 553 H CK-MB (CK-2) 2.5 H Troponin I 5.350 H* 06/07/21 06/07/21 06/07/21 02:50 06:56 09:34 WBC RBC Hgb Hct MCV Neutrophils # Lymphocytes # Sodium Potassium Chloride BUN Creatinine Glucose POC Glucose (mg/dL) 455 H 365 H CK-MB (CK-2) Troponin I 8.680 H* 06/07/21 06/07/21 06/07/21 10:05 11:55 14:17 WBC RBC Hgb Hct MCV Neutrophils # Lymphocytes # Sodium Potassium Chloride BUN Creatinine Glucose POC Glucose (mg/dL) 299 H 336 H CK-MB (CK-2) Troponin I 7.950 H* Assessment and Plan Assessment: Elevated troponin supsected non-STEMI History of Left thalamus hemorrhage likely due to uncontrolled hypertension r esidual right hemiparesis (weakness more in upper than lower) Atrial fibrillation on anticoagulation Because mellitus and the presented with hyperglycemia (in 600's) since had steroid use End-stage renal disease on dialysis Mild to moderate hyponatremia Plan: Regarding pursuing cardiac cath/use of anticoagulation there is a risk of a possible bleed (especially with history of intraparechymal bleed) but if benefit outweigh risk to consider it. The patient and his want to pursue with cardiac cath/use of anticoagulation if needed and they are aware there might be a risk of intracranial bleed. Every 4 hours neuro checks We'll defer the rest of medical management to the cardiology team and the primary team Nephrology is on board and currently patient is getting dialysis. Regarding the hyponatremia will defer the management to the primary team. Upon discharge the patient needs to follow-up with a neurologist within 1-2 weeks. The plan is discussed with the patient, his and his nurse. Thank you for the consultation. Mark Diaz M.D. Neuro-hospitalist Time with Patient: Greater than 30
[2021-06-07] MEDS ORDERED: FUROSEMIDE 40 MG TAB PO SCH (16:00)
[2021-06-07 17:27] LABS: Glucose,Whole Blood 203 mg/dL (75-99)
--- NOTE | 2021-06-07 18:19 | P.CRDCN ---
History of Present Illness Consult date: 06/07/21 History of present illness: This is a 60-year-old gentleman with history of end-stage renal disease on dialysis, history of atrial fibrillation, not on anticoagulation, history of cerebral hemorrhage and CVA related to hypertension with right-sided weakness, which seemed to gradually improving. He follows with [employer] [employer] and also Dr. Boyd patient was taken of the anticoagulation therapy. Recently because of cerebellar bleed. Is not taking any antiplatelet agent. Patient presented to the hospital with complaints of chest pain lasting from 2 hours. Yesterday patient had a computed tomography scan for evaluation of the back pain. He thinks that procedure might have resulted any chest pain since coming to the hospital. Patient has been free of any pains. His EKGs did not reveal any acute changes. However, his troponin went up to 7. His echo Cardigan showed normal LV function without any significant wall motion abnormalities. Patient was seen by neurologist and he felt that his risk of cerebral bleed but suggested that if the benefit is more than the risk, may proceed with cardiac cath and also with antiplatelet and anticoagulation agents. Family is seemed to be interested in this approach. However patient is not having any active chest pain. His EKGs and echo Cardigan some normal. Given the situation, I would pressure maximal medical therapy and continue to monitor him. If patient were to get any recurrent chest pains in spite of maximal medical therapy. May consider cardiac catheterization. Patient is also having some problem with the dialysis catheters. That may be another reason that patient may have gone anticoagulation. He is also has chronic atrial fibrillation Review of Systems As per the chart Past Medical History Past Medical History: Atrial Fibrillation, CVA/TIA, Diabetes Mellitus, Eye Disorder, GERD/Reflux, Hyperlipidemia, Hypertension, Myocardial Infarction ([place]), Renal Disease, Sleep Apnea/CPAP/BIPAP Additional Past Medical History / Comment(s): CVA 03/28/21 rsulting in brain bleed, impaired speech, patient in wheelchair, can pivot with help. 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 GOUT, renal failure, dialysis MOWEFR. RENAL FAILURE NO CPAP. Last Myocardial Infarction Date:: History of Any Multi-Drug Resistant Organisms: None Reported Past Surgical History: Bariatric Surgery Additional Past Surgical History / Comment(s): GASTRIC SLEEVE 03/2013, EGD, Hemodialysis catheter placement. Past Anesthesia/Blood Transfusion Reactions: Previous Problems w/ Anesthesia Additional Past Anesthesia/Blood Transfusion Reaction / Comment(s): DIFFICULT INTUBATION - FIRST ATTEMPT AT BARIATRIC SURGERY WAS CANCELLED BECAUSE OF IT. LAT ER ATTRITUBTED TO OBESITY, PT WAS OVER 300LBS. Past Psychological History: No Psychological Hx Reported Smoking Status: Former smoker Past Alcohol Use History: None Reported Additional Past Alcohol Use History / Comment(s): QUIT SMOKING IN 1992. Past Drug Use History: None Reported - Past Family History Mother Family Medical History: Cancer Father Family Medical History: Congestive Heart Failure (CHF), Diabetes Mellitus, Renal Disease Medications and Allergies Home Medications Medication Instructions Recorded Confirmed Type Atorvastatin [Lipitor] 10 mg PO HS 11/13/20 06/07/21 History Cholecalciferol [Vitamin D3 (25 50 mcg PO BID 11/13/20 06/07/21 History Mcg = 1000 Iu)] Furosemide [Lasix] 40 mg PO BID 11/13/20 06/07/21 History Gabapentin [Neurontin] 200 mg PO HS 11/13/20 06/07/21 History Glimepiride [Amaryl] 1 mg PO BID 11/13/20 06/07/21 History Omeprazole [PriLOSEC] 20 mg PO DAILY 11/13/20 06/07/21 History allopurinoL [Zyloprim] 200 mg PO DAILY 11/13/20 06/07/21 History atenoloL 25 mg PO BID 11/13/20 06/07/21 History calcitrioL [Calcitriol] 0.5 mcg PO MOWEFR 11/13/20 06/07/21 History Acetaminophen Tab [Tylenol] 1,000 mg PO Q4H PRN 05/07/21 06/07/21 History Midodrine [ProAmatine] 5 mg PO BID PRN 05/07/21 06/07/21 History Nitroglycerin Sl Tabs [Nitrostat] 0.4 mg SUBLINGUAL Q5M PRN 05/07/21 06/07/21 History Sennosides [Senokot] 8.6 mg PO DAILY PRN 05/07/21 06/07/21 History Vit B Complx C/Folic Acid/Zinc 1 tab PO DAILY 05/07/21 06/07/21 History [Renaplex Tablet] Gabapentin [Neurontin] 100 mg PO DAILY@1200 PRN 06/07/21 06/07/21 History Allergies Allergy/AdvReac Type Severity Reaction Status Date / Time aprepitant [From Emend] Allergy Swelling Verified 06/07/21 07:53 bee venom protein (honey bee) Allergy Anaphylaxis Verified 06/07/21 07:53 fosaprepitant [From Emend] Allergy Swelling Verified 06/07/21 07:53 iodine Allergy Swelling Verified 06/07/21 07:53 Penicillins Allergy Unknown Verified 06/07/21 07:53 Childhood Physical Exam Vitals: Vital Signs Temp Pulse Pulse Resp BP BP Pulse Ox 06/07/21 16:50 98.8 F 86 18 128/52 06/07/21 16:30 98.0 F 80 16 120/77 97 06/07/21 14:00 79 16 06/07/21 11:10 97.7 F 79 16 128/80 99 06/07/21 09:55 97.7 F 83 16 144/102 90 L 06/07/21 06:21 83 20 129/79 98 06/06/21 23:15 90 18 103/91 95 06/06/21 21:54 97.7 F 103 H 18 146/82 97 Intake and Output 06/07/21 06/07/21 06/07/21 06:59 14:59 22:59 Output Total 1999 -1999 Output: Hemodialysis 1999 Other: # Voids 1 Weight 105.233 kg GENERAL EXAM: Patient is alert and oriented and doesn't appear to be in any acute distress HEENT: Normocephalic. Normal reaction of pupils, equal size, normal range of extraocular motion. No erythema or exudates in the throat. NECK: No masses, no nuchal rigidity. CHEST: No chest wall deformity. LUNGS: Equal air entry with no crackles or wheeze. HEART: S1 and S2 normal with no audible mumurs or gallops. Regular rhythm, femorals equal on both sides.. ABDOMEN: No hepatosplenomegaly, normal bowel sounds, no guarding or rigidity. SKIN: No rashes CENTRAL NERVOUS SYSTEM: No focal deficits. EXTREMITIES: She has fistula in the right arm. Right arm is swollen and edematous Results 06/06/21 22:49 06/06/21 22:49 Cardiac Enzymes 06/06/21 06/06/21 06/06/21 Range/Units 22:49 22:49 22:49 AST 59 (17-59) U/L CK-MB (CK-2) 2.5 H (0.0-2.4) ng/mL Troponin I 0.153 H* (0.000-0.034) ng/mL 06/07/21 06/07/21 06/07/21 Range/Units 02:31 06:56 10:05 AST (17-59) U/L CK-MB (CK-2) (0.0-2.4) ng/mL Troponin I 5.350 H* 8.680 H* 7.950 H* (0.000-0.034) ng/mL Coagulation 06/06/21 Range/Units 22:49 PT 10.8 (9.0-12.0) sec APTT 23.4 (22.0-30.0) sec CBC 06/06/21 Range/Units 22:49 WBC 10.8 H (3.8-10.6) k/uL RBC 3.30 L (4.30-5.90) m/uL Hgb 11.1 L (13.0-17.5) gm/dL Hct 34.2 L (39.0-53.0) % Plt Count 221 (150-450) k/uL Comprehensive Metabolic Panel 06/06/21 Range/Units 22:49 Sodium 128 L (137-145) mmol/L Potassium 5.9 H (3.5-5.1) mmol/L Chloride 90 L (98-107) mmol/L Carbon Dioxide 24 (22-30) mmol/L BUN 45 H (9-20) mg/dL Creatinine 4.09 H (0.66-1.25) mg/dL Glucose 618 H* (74-99) mg/dL Calcium 9.4 (8.4-10.2) mg/dL AST 59 (17-59) U/L ALT 28 (4-49) U/L Alkaline Phosphatase 75 (38-126) U/L Total Protein 7.5 (6.3-8.2) g/dL Albumin 4.3 (3.5-5.0) g/dL Current Medications Generic Name Dose Route Start Last Admin Trade Name Freq PRN Reason Stop Dose Admin Acetaminophen 1,000 mg 06/07/21 09:50 Acetaminophen Tab 500 Mg Tab PO Q4H PRN Pain Allopurinol 200 mg 06/08/21 09:00 Allopurinol 100 Mg Tab PO DAILY [facility] Aspirin 325 mg 06/08/21 09:00 Aspirin 325 Mg Tab PO DAILY [facility] Atenolol 25 mg 06/07/21 21:00 Atenolol 25 Mg Tab PO BID [facility] Atorvastatin Calcium 10 mg 06/07/21 21:00 Atorvastatin 10 Mg Tab PO HS [facility]IA Calcitriol 0.5 mcg 06/07/21 10:00 06/07/21 10:52 Calcitriol 0.25 Mcg Cap PO 0.5 mcg MOWEFR VALENCIA Administration Furosemide 40 mg 06/07/21 10:30 06/07/21 10:53 Furosemide 10 Mg/Ml 4 Ml Vial IV 40 mg Q12HR [facility]ENC[facility] Administration Gabapentin 100 mg 06/07/21 12:00 Gabapentin 100 Mg Cap PO DAILY@1200 PRN nerve pain Insulin Aspart 0 unit 06/07/21 12:30 06/07/21 17:36 Insulin Aspart (Novolog) 100 Unit/Ml Vial SQ 2 unit ACHS VALENCIA Administration Protocol Morphine Sulfate 4 mg 06/07/21 04:54 Morphine Sulfate 4 Mg/Ml Syringe IV Q4HR PRN Chest Pain Nitroglycerin 0.4 mg 06/07/21 09:50 Nitroglycerin Sl Tabs 0.4 Mg Tab SUBLINGUAL Q5M PRN Chest Pain Pantoprazole Sodium 40 mg 06/07/21 10:00 06/07/21 10:52 Pantoprazole 40 Mg/10 Ml Vial IVP 40 mg DAILY [facility] Administration Senna 8.6 mg 06/07/21 09:50 Sennosides 8.6 Mg Tab PO DAILY PRN Constipation Intake and Output 06/07/21 06/07/21 06/07/21 06:59 14:59 22:59 Output Total 1999 Balance -1999 Output: Hemodialysis 1999 Other: # Voids 1 Weight 105.233 kg Patient Weight 06/08/21 06:59 Weight 105.233 kg 06/06/21 22:49 06/06/21 22:49 EKG Interpretations (text) Atrial fibrillation with mildly rapid ventricular response. No acute ST-T abnormalities. Old anterior septal myocardial infarction cannot be excluded Assessment and Plan (1) Acute non-ST elevation myocardial infarction (NSTEMI) Current Visit: Yes Status: Acute Code(s): I21.4 - NON-ST ELEVATION (NSTEMI) MYOCARDIAL INFARCTION SNOMED Code(s): 376963815 (2) ESRD (end stage renal disease) on dialysis Current Visit: Yes Status: Acute Code(s): N18.6 - END STAGE RENAL DISEASE; Z99.2 - DEPENDENCE ON RENAL DIALYSIS SNOMED Code(s): 017510878 (3) ICH (intracerebral hemorrhage) Current Visit: No Status: Acute Code(s): I61.9 - NONTRAUMATIC INTRACEREBRAL HEMORRHAGE, UNSPECIFIED SNOMED Code(s): 580383319 (4) Peritoneal dialysis catheter dysfunction Current Visit: No Status: Acute Code(s): T85.611A - BREAKDOWN OF INTRAPERITONEAL DIALYSIS CATHETER, INIT SNOMED Code(s): 797801509 Plan: Patient is clinically stable without any chest pain this morning. Echo showed normal LV function. EKG did not reveal any acute changes. Continue treatment with beta blockers and nitrates and continue to monitor his clinical status. May consider cardiac catheterization if the chest pains recur.
[2021-06-07] MEDS: ISOSORBIDE MONONITRATE ER 30 MG TAB.ER.24H PO SCH (18:50)
[2021-06-07] MEDS: atenoloL 25 MG TAB PO SCH (21:40)
[2021-06-07] MEDS: ATORVASTATIN 10 MG TAB PO SCH (21:40)
[2021-06-07 22:52] LABS: Glucose,Whole Blood 257 mg/dL (75-99)
[2021-06-08 06:09] LABS: Glucose,Whole Blood 131 mg/dL (75-99)
[2021-06-08] MEDS: INSULIN ASPART (NovoLOG) 100 UNIT/ML VIAL SQ SCH ×4 (06:31→22:18)
[2021-06-08] MEDS: PANTOPRAZOLE 40 MG TABLET PO SCH (06:32)
[2021-06-08] MEDS: ASPIRIN 325 MG TAB PO SCH (08:12)
[2021-06-08] MEDS: allopurinoL 100 MG TAB PO SCH (08:12)
[2021-06-08] MEDS: atenoloL 25 MG TAB PO SCH ×2 (08:12→22:19)
[2021-06-08] MEDS: FUROSEMIDE 10 MG/ML 4 ML VIAL IV SCH ×2 (08:12→22:19)
[2021-06-08] MEDS: ISOSORBIDE MONONITRATE ER 30 MG TAB.ER.24H PO SCH (08:12)
--- NOTE | 2021-06-08 10:49 | P.PN ---
Subjective This is a pleasant 60 years old male with past medical history of end-stage renal disease on hemodialysis , Atrial Fibrillation not on anticoagulation , CVA/TIA, Diabetes Mellitus,m GERD, Hyperlipidemia, Hypertension, Sleep Apnea/CPAP/BIPAP, CVA 03/28/21 rsulting in brain bleed, impaired speech, patient in wheelchair, , LEGALLY BLIND DUE TO DIABETIC RETINOPATHY, DIABETIC NEUROPATHY. GOUT 3 at his patient of Dr. Loo. Dr. Hanson and aircraft design engineer Dr. Boyd. Patient states that he wasn't sure if he had CABG but that was 10 years ago. Patient was sitting at the bed edge, looks somewhat upset by the fact he was kept in the hospital This patient presents because of central, nonradiating chest pain of 2 hours situation felt like pressure about 10/10 in severity but now is completely resolved 0/10. His blood pressure checked at home by his which is at bedside states that 177/107, Associated with orthopnea and paroxysmal nocturnal dyspnea for the last few days but patient did not specify. With no associated coughing. No headache or palpitation or dizziness. No diarrhea or vomiting. No urinary complaints Patient yesterday went to have CAT scan and this facility because an outpatient setting for ongoing epigastric abdominal pain for the last 3 weeks,, he had developed preparation for the CT angiogram including Solu-Medrol. And when he went home he started having this chest pain. 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 Patient states that his sugar is controlled at home with Amaryl Patient is able to make urine once or twice a day and with no complaints black no dysuria or urgency. Patient denies smoking, alcohol or illicit drugs. There was an coumadine blood loss was stopped when he had a hemorrhagic stroke about 2 months ago, now with residual right hemiparesis and swollen right upper lower extremities. His speech is much improved and almost back to normal. No slurred speech. No blurred vision. No headache or dizziness currently. Vitas looks stable, blood pressure 129/79, breathing rate 20, afebrile and saturating 95% on room air. WBC is 10.8, hemoglobin 11.1, platelet count is normal. INR is 1.0. Sodium 128, potassium 5.9, creatinine 4.09, glucose 618. Liver enzymes not elevated, bilirubin is normal at 0.9, creatinine kinase 84, proBNP 13,600. Lipase normal. Troponin elevated 0.15, went up to 5.3 and repeat troponin is 8.6 this morning. EKG showing atrial fibrillation's with RVR at rate of 101 with QTC [address]-T changes. Chest x-ray: There is interstitial pneumonitis with appears new compared to old exam CT of the brain: There is some white matter hypodensity and hyperdensity in the left central subareolar well and left thalamus which is improved compared to last exam and chordee related to resolving ischemia. No evidence of new abnormal In the emergency room patient was started on aspirin 325 mg Cardiology and nephrology team were consulted. Patient this morning kept himself nothing by mouth 06/08/2021 Patient presents with chest pain and elevated troponin, he was started on aspirin 325 mg in the emergency room. No evidence of bleeding. No worsening neurological symptoms in view of recent history of intracerebral bleed about 2 months ago and persistent right hemiparesis which looks his stable. Hemodynamically stable. Glucose controlled. Echocardiogram showed ejection fraction of 55-60% with moderate concentric left ventricular hypertrophy. Also patient was on IV Lasix 40 mg twice daily instead of oral Lasix at home. Also he is undergoing hemodialysis. Yesterday patient has been assessed neurologically before risk of bleeding. Please refer to neurology note for more details. However cardiology appointment for cardiac cath if the patient to have persistent chest pain. This morning patient denies any chest pain or dyspnea or any other symptoms to be. Patient still has bilateral leg swelling, more on the right side because of disuse. This is a chronic problem Objective - Vital Signs Vital signs: Vital Signs Temp 98.0 F 06/08/21 08:20 Pulse 72 06/08/21 08:20 Resp 18 06/08/21 08:20 BP 90/52 06/08/21 08:20 Pulse Ox 97 06/08/21 08:20 Intake & Output 06/07/21 06/08/21 06/08/21 18:59 06:59 18:59 Intake Total 240 Output Total 1999 Balance -1999 240 Weight 105.233 kg Intake: Oral 240 Output: Hemodialysis 1999 Other: Voiding Method Urinal # Voids 1 0 - Exam -GENERAL: The patient is alert and oriented x3, not in any acute distress. Ob kamran HEENT: Pupils are round and equally reacting to light. EOMI. No scleral icterus. No conjunctival pallor. Normocephalic, atraumatic. No pharyngeal erythema. No thyromegaly. CARDIOVASCULAR: S1 and S2 present. No murmurs, rubs, or gallops. -PULMONARY: Chest is clear to auscultation, no wheezing bilateral basal medication Abdomen: Soft, nontender, nondistended, normoactive bowel sounds. No palpable organomegaly. MUSCULOSKELETAL: No joint swelling or deformity. -EXTREMITIES: No cyanosis, clubbing. Bilateral pitting leg edema -NEUROLOGICAL: Cranial nerves grossly intact. Chronic right hemiparesis, he can move right R arm and leg very little. No weakness on the left side SKIN: No rashes. No petechiae - Labs CBC & Chem 7: 06/06/21 22:49 06/06/21 22:49 Labs: Abnormal Lab Results - Last 24 Hours (Table) 06/07/21 06/07/21 06/07/21 Range/Units 10:05 11:55 14:17 POC Glucose (mg/dL) 299 H 336 H (75-99) mg/dL Troponin I 7.950 H* (0.000-0.034) ng/mL 06/07/21 06/07/21 06/08/21 Range/Units 17:25 22:50 06:07 POC Glucose (mg/dL) 203 H 257 H 131 H (75-99) mg/dL Troponin I (0.000-0.034) ng/mL Assessment and Plan Assessment: Elevated troponin, suspected non-STEMI Acute on chronic congestive heart failure End-stage renal disease on hemodialysis hyponatremia 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, with right hemiparesis, wtih impaired speech, patient in wheelchair History of atrial fibrillation not on anticoagulation Diabetes Mellitus with hyperglycemia GERD Hyperlipidemia Hypertension Sleep Apnea/CPAP/BIPAP LEGALLY BLIND DUE TO DIABETIC RETINOPATHY DIABETIC NEUROPATHY Summary of GOUT Obesity with BMI of 36.3 Plan: This is a pleasant 60 years old male with end-stage renal disease who presents with non-STEMI Consults cardiology team, we will defer the decision about aspirin and anticoag ulation to the cardiology team Switch oral Lasix and to IV Lasix. Monitor input and output and electrolytes Nephrology consult Neurology team assessed risk of bleeding if patient receive anticoagulation. Please refer to their notes for more details Insulin sliding scale patient and at bedside agree they don't want to start anticoagulation for now for recent history of brain bleed and they want to wait for aircraft design engineer. I talked to the bedside nurse to inform aircraft design engineer about this p atient Labs and medication were reviewed.. Continue same treatment. Continue with symptomatic treatment. Resume home medication. Monitor lytes and vitals. DVT and GI prophylaxis. Further recommendations depends on the clinical course of the patient prognosis is guarded Discussed with bed side nurse
[2021-06-08 11:40] LABS: Chol/HDL Ratio 5.03 Ratio; LDL Cholesterol,Calculated 99.4 mg/dL (0.0-131.0)
--- NOTE | 2021-06-08 12:12 | P.PN ---
Subjective Progress Note Date: 06/08/21 This is 60-year-old gentleman presented to the hospital with the bout of chest pain and abnormal troponin. EKG did not reveal any acute changes. Echo cardiogram showed normal LV function. Since admission patient has been free of any chest pain. At this point they want to continue with current the way to approach. He is willing to go on baby aspirin. He patient hasn't had recurrence of chest pain, then we'll consider cardiac catheterization. We'll increase his activity and monitor him. He is being followed by neurology also. Patient also has issues with the dialysis catheters. That may be another reason for patient to go on anticoagulation therapy. Objective - Vital Signs Vital signs: Vital Signs Temp 98.0 F 06/08/21 08:20 Pulse 72 06/08/21 08:20 Resp 18 06/08/21 08:20 BP 90/52 06/08/21 08:20 Pulse Ox 97 06/08/21 08:20 Intake & Output 06/07/21 06/08/21 06/08/21 18:59 06:59 18:59 Intake Total 240 Output Total 2000 Balance -1999 240 Weight 105.233 kg Intake: Oral 240 Output: Hemodialysis 1999 Other: Voiding Method Urinal # Voids 1 0 - Exam GENERAL EXAM: Patient is alert and oriented and doesn't appear to be in any acute distress HEENT: Normocephalic. Normal reaction of pupils, equal size, normal range of extraocular motion. No erythema or exudates in the throat. NECK: No masses, no nuchal rigidity. CHEST: No chest wall deformity. LUNGS: Equal air entry with no crackles or wheeze. HEART: S1 and S2 normal with no audible mumurs or gallops. Regular rhythm, femorals equal on both sides.. ABDOMEN: No hepatosplenomegaly, normal bowel sounds, no guarding or rigidity. SKIN: No rashes CENTRAL NERVOUS SYSTEM: Deferred to neurologist EXTREMITIES: No cyanosis, clubbing or edema. - Labs CBC & Chem 7: 06/06/21 22:49 06/06/21 22:49 Labs: Abnormal Lab Results - Last 24 Hours (Table) 06/07/21 06/07/21 06/07/21 Range/Units 14:17 17:25 22:50 POC Glucose (mg/dL) 336 H 203 H 257 H (75-99) mg/dL Triglycerides (0.00-149.00) mg/dL HDL Cholesterol (40.00-60.00) mg/dL 06/08/21 06/08/21 Range/Units 06:07 06:23 POC Glucose (mg/dL) 131 H (75-99) mg/dL Triglycerides 168.00 H (0.00-149.00) mg/dL HDL Cholesterol 33.00 L (40.00-60.00) mg/dL Assessment and Plan (1) Acute non-ST elevation myocardial infarction (NSTEMI) Current Visit: Yes Status: Acute Code(s): I21.4 - NON-ST ELEVATION (NSTEMI) MYOCARDIAL INFARCTION SNOMED Code(s): 563681845 (2) ESRD (end stage renal disease) on dialysis Current Visit: Yes Status: Acute Code(s): N18.6 - END STAGE RENAL DISEASE; Z99.2 - DEPENDENCE ON RENAL DIALYSIS SNOMED Code(s): 431214971 (3) ICH (intracerebral hemorrhage) Current Visit: No Status: Acute Code(s): I61.9 - NONTRAUMATIC INTRACEREBRAL HEMORRHAGE, UNSPECIFIED SNOMED Code(s): 824408155 (4) Peritoneal dialysis catheter dysfunction Current Visit: No Status: Acute Code(s): T85.611A - BREAKDOWN OF INTRAPERITONEAL DIALYSIS CATHETER, INIT SNOMED Code(s): 616277591 Plan: Patient is on aspirin. Continue with beta blockers and nitrates. Increase activity. Continue to monitor his symptoms
[2021-06-08 12:19] LABS: Glucose,Whole Blood 165 mg/dL (75-99)
--- NOTE | 2021-06-08 13:18 | P.PN ---
Subjective Progress Note Date: 06/08/21 The patient is seen at bedside and he denies any further episodes of chest pain. He denies of any new neurological deficits during this admission. He was told by Cardiology team that they will hold off Cardiac cath at this time. Objective - Vital Signs Vital signs: Vital Signs Temp 97.8 F 06/08/21 12:33 Pulse 95 06/08/21 12:33 Resp 18 06/08/21 12:33 BP 177/84 06/08/21 12:33 Pulse Ox 95 06/08/21 12:33 Intake & Output 06/07/21 06/08/21 06/08/21 18:59 06:59 18:59 Intake Total 240 Output Total 1999 Balance -1999 240 Weight 105.233 kg Intake: Oral 240 Output: Hemodialysis 1999 Other: Voiding Method Urinal Urinal # Voids 1 0 - Exam GENERAL: The patient is lying in bed and is not in acute distress. NEUROLOGICAL: Higher mental function: The patient is awake, alert, oriented to self, place and time. Patient is following commands. No aphasia and no neglect. Cranial nerves: The pupils are round, equal and reactive to light and accommodation. Visual greenberg are full to confrontation throughout. Extraocular movement is intact no nystagmus is noted. Facial sensation is normal to touch throughout. The facial strength is normal throughout. Hearing is normal bilaterally to hand rub. Tongue is midline and moved [id number] without any difficulty. No dysarthria is noted. Shoulder shrug is normal bilaterally. Motor: Gait is deferred. The strength is right proximal upper extremity is 2-3 /5 and briefly was able to lift above gravity. Had weak hand dispatcher electric power 3/5. While right lower is 3-4. Left side is 5/5. Decrease tone over the right side. Normal bulk. Cerebellum: Normal finger to nose over the left. Sensation: Sensation is normal to touch throughout. Reflexes (right/left): 2+ throughout while lowers are 1+ throughout. Plantars are mute bilaterally. WORK-UP: Ordonez virus PCR was not detected. Most recent POC glucose is 165. Lipid Panel: Cholesterol 168, cholesterol 166, LDL of 99 and HDL of 33. PT is 10.8, INR is 1.0, PTT is 23.4 CT of the head is reported as there is some white matter hypodensity in hyperdensity in the left centrum semiovale and the left thalamus which is improved compared to last exam and could relate to resolving ischemia. No evide nce of a new abnormality. I personally reviewed the CT of the head there is no acute or subacute ischemia. There is no acute or subacute intraparenchymal hemorrhage. 2-D echo was reported as mild concentric left ventricular hypertrophy. Ejection fraction for of 55-60%. Left atrium is moderately dilated. 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 The patient and his want to pursue with cardiac cath/use of anticoagulation if needed and they are aware there might be a risk of intracranial bleed. Per Cardiology team they will treat medically and monitor his symptoms. * Currently patient is on ASA 325mg daily and Lipitor 10mg qhs. * Every 4 hours neuro checks * We'll defer the rest of medical management to the cardiology team and the primary team * Regarding the use of anticoagulation down the line because of Atrial fibrillation. Spoke with the patient and his and they stated there are in agreement of using anticoagulation to avoid the risk of a stroke and they are aware of a risk of a bleed with the use of anticoagulation. From a neurological perspective the patient is clear on starting anticoagulation and we'll defer the medication use to the cardiology team (consider using Eliqius if patient's insurance covers it). Once patient is started on anticoagulation recommend stopping antiplatelets to avoid increase risk of bleed. Also once on anticoagulation, recommend repeating CT brain within 3 days to rule out any intracranial bleed. * Nephrology is on board and currently patient is getting dialysis. * Regarding the hyponatremia will defer the management to the primary team. * She was notified to continue to monitor his blood pressure at home. * Upon discharge the patient will follow-up with me in clinic on 06/12/2021 for neurological follow-up. The plan is discussed with the patient, his and his nurse. There is no further neurological work-up. Mark Diaz M.D. Neuro-hospitalist Time with Patient: Less than 30
--- NOTE | 2021-06-08 13:42 | PN ---
PROGRESS NOTE Patient is seen for followup for end-stage renal disease. He is maintained on a Thursday, Thursday, Thursday schedule. The patient was admitted to the hospital with complaints of chest pain. He recently had steroids for CT of the abdomen with IV contrast as patient is allergic to IV contrast. He states his blood sugars were running significantly high. The CT scan of the abdomen did not show any significant abnormal findings. The patient has been evaluated by Cardiology and currently plan is to maximize medical therapy. There are no plans for cardiac catheterization at this point. He did have elevated troponin and ruled in for acute non ST elevation myocardial infarction. PHYSICAL EXAMINATION: On examination today, blood pressure 177/84, earlier this morning 90/52; heart rate 72 per minute. He is afebrile. Examination of the heart S1, S2. Examination of the lungs, bilateral breath sounds are heard. Abdomen is soft, nontender. Examination of lower extremities shows edema 2+ bilaterally, worse on the left leg. Patient has right hemiparesis. LABS: Show troponin was 7.9 on June 06. Sodium 128, potassium 5.9, serum creatinine 4.0. ASSESSMENT: 1. End-stage renal disease, on hemodialysis on a Thursday, Thursday, Thursday schedule, status post hemodialysis yesterday. The patient had about 2 L of ultrafiltration. 2. Volume overload. We will plan for his next treatment on Thursday. We will continue to increase the UF as tolerated. 3. Acute non ST elevation RI with no plans for cardiac catheterization at this time. 4. History of recent CVA with intracranial bleed and right hemiparesis, slowly improving. PLAN: Hemodialysis on 06/10/2021. Continue current medications. Monitor blood pressure, has significant fluctuation noted. MMODL / IJN: [id number] /
[2021-06-08 17:01] LABS: Glucose,Whole Blood 255 mg/dL (75-99)
[2021-06-08 20:53] LABS: Glucose,Whole Blood 188 mg/dL (75-99)
[2021-06-08] MEDS: ATORVASTATIN 10 MG TAB PO SCH (22:19)
[2021-06-08] MEDS: FUROSEMIDE 40 MG TAB PO SCH (23:13)
[2021-06-09 06:41] LABS: Glucose,Whole Blood 150 mg/dL (75-99)
[2021-06-09] MEDS: INSULIN ASPART (NovoLOG) 100 UNIT/ML VIAL SQ SCH (06:52)
[2021-06-09] MEDS: PANTOPRAZOLE 40 MG TABLET PO SCH (06:53)
[2021-06-09 06:55] VITALS: TEMP 98.3
[2021-06-09] MEDS: allopurinoL 100 MG TAB PO SCH (08:50)
[2021-06-09] MEDS: ISOSORBIDE MONONITRATE ER 30 MG TAB.ER.24H PO SCH (08:50)
[2021-06-09] MEDS: ASPIRIN 325 MG TAB PO SCH (08:50)
[2021-06-09] MEDS: atenoloL 25 MG TAB PO SCH (08:50)
[2021-06-09] MEDS: FUROSEMIDE 40 MG TAB PO SCH (08:50)
--- NOTE | 2021-06-09 10:16 | P.PN ---
Subjective Progress Note Date: 06/09/21 This is 60-year-old gentleman presented to the hospital with the bout of chest pain and abnormal troponin. EKG did not reveal any acute changes. Echo cardiogram showed normal LV function. Since admission patient has been free of any chest pain. At this point they want to continue with current the way to approach. He is willing to go on baby aspirin. He patient hasn't had recurrence of chest pain, then we'll consider cardiac catheterization. We'll increase his activity and monitor him. He is being followed by neurology also. Patient also has issues with the dialysis catheters. That may be another reason for patient to go on anticoagulation therap 06/09/2021: This patient with history of end-stage renal disease, history of atrial fibrillation and history of cerebral hemorrhage and CVA is admitted to the hospital with chest pains and positive troponin. Patient has been on medical therapy and remained chest pain-free. Patient didn't want to go on anticoagulation therapy or antiplatelet therapy because of fear of cerebral bleed. He was willing to go on aspirin at this time. Patient has remained stable for the last 48 hours and would like to pursue medical therapy rather than having intervention and antiplatelet agents. He is on aspirin, so far. He is also thinning of going on anticoagulation therapy if he doesn't have any bleeding issues with aspirin. Patient has been tolerating activity. His lungs are clear. Heart is regular. He could be discharged home and follow-up in the office in one week Objective - Vital Signs Vital signs: Vital Signs Temp 98.3 F 06/09/21 04:00 Pulse 82 06/09/21 04:00 Resp 17 06/09/21 04:00 BP 149/72 06/09/21 04:00 Pulse Ox 98 06/09/21 04:00 Intake & Output 06/08/21 06/09/21 06/09/21 18:59 06:59 18:59 Intake Total 720 240 Output Total 450 Balance 270 240 Intake: Oral 720 240 Output: Urine 450 Other: Voiding Method Urinal Urinal # Voids 7 - Exam GENERAL EXAM: Patient is alert and oriented and doesn't appear to be in any acute distress HEENT: Normocephalic. Normal reaction of pupils, equal size, normal range of extraocular motion. No erythema or exudates in the throat. NECK: No masses, no nuchal rigidity. CHEST: No chest wall deformity. LUNGS: Equal air entry with no crackles or wheeze. HEART: S1 and S2 normal with no audible mumurs or gallops. Regular rhythm, femorals equal on both sides.. ABDOMEN: No hepatosplenomegaly, normal bowel sounds, no guarding or rigidity. SKIN: No rashes CENTRAL NERVOUS SYSTEM: Deferred to neurologist EXTREMITIES: No cyanosis, clubbing or edema. - Labs CBC & Chem 7: 06/06/21 22:49 06/06/21 22:49 Labs: Abnormal Lab Results - Last 24 Hours (Table) 06/08/21 06/08/21 06/08/21 Range/Units 06:23 12:18 16:59 POC Glucose (mg/dL) 165 H 255 H (75-99) mg/dL Triglycerides 168.00 H (0.00-149.00) mg/dL HDL Cholesterol 33.00 L (40.00-60.00) mg/dL 06/08/21 06/09/21 Range/Units 20:52 06:39 POC Glucose (mg/dL) 188 H 150 H (75-99) mg/dL Triglycerides (0.00-149.00) mg/dL HDL Cholesterol (40.00-60.00) mg/dL Assessment and Plan (1) Acute non-ST elevation myocardial infarction (NSTEMI) Current Visit: Yes Status: Acute Code(s): I21.4 - NON-ST ELEVATION (NSTEMI) MYOCARDIAL INFARCTION SNOMED Code(s): 791605093 (2) ESRD (end stage renal disease) on dialysis Current Visit: Yes Status: Acute Code(s): N18.6 - END STAGE RENAL DISEASE; Z99.2 - DEPENDENCE ON RENAL DIALYSIS SNOMED Code(s): 931814869 (3) ICH (intracerebral hemorrhage) Current Visit: No Status: Acute Code(s): I61.9 - NONTRAUMATIC INTRACEREBRAL HEMORRHAGE, UNSPECIFIED SNOMED Code(s): 604528081 (4) Peritoneal dialysis catheter dysfunction Current Visit: No Status: Acute Code(s): T85.611A - BREAKDOWN OF INTRAPERITONEAL DIALYSIS CATHETER, INIT SNOMED Code(s): 781641554 Plan: Patient remained stable. He wants to pursue medical therapy. Willing go on aspirin alone at this time. In the future he may consider going on and decortication therapy. He will have follow-up in my partner in the office that is Dr. Boyd and also neurologist. If patient were to develop any more chest pains. He'll come back to the hospital right away
--- NOTE | 2021-06-09 10:45 | P.PN ---
Subjective Progress Note Date: 06/09/21 The patient is seen at bedside and denies any new neurological deficits. Cardiology is following-up and no intervention at this time. Objective - Vital Signs Vital signs: Vital Signs Temp 98.3 F 06/09/21 04:00 Pulse 82 06/09/21 04:00 Resp 17 06/09/21 04:00 BP 149/72 06/09/21 04:00 Pulse Ox 98 06/09/21 04:00 Intake & Output 06/08/21 06/09/21 06/09/21 18:59 06:59 18:59 Intake Total 720 240 Output Total 450 Balance 270 240 Intake: Oral 720 240 Output: Urine 450 Other: Voiding Method Urinal Urinal # Voids 7 - Exam GENERAL: The patient is lying in bed and is not in acute distress. NEUROLOGICAL: Higher mental function: The patient is awake, alert, oriented to self, place and time. Patient is following commands. No aphasia and no neglect. Cranial nerves: The pupils are round, equal and reactive to light and accommodation. Visual greenberg are full to confrontation throughout. Extraocular movement is intact no nystagmus is noted. Facial sensation is normal to touch throughout. The facial strength is normal throughout. Hearing is normal bilaterally to hand rub. Tongue is midline and moved [id number] without any difficulty. No dysarthria is noted. Shoulder shrug is normal bilaterally. Motor: Gait is deferred. The strength is right proximal upper extremity is 2- 3/5 and briefly was able to lift above gravity. Had weak hand senior account manager 3/5. While right lower is 3-4. Left side is 5/5. Decrease tone over the right side. Normal bulk. Cerebellum: Normal finger to nose over the left. Sensation: Sensation is normal to touch throughout. Reflexes (right/left): 2+ throughout while lowers are 1+ throughout. Plantars are mute bilaterally. WORK-UP: Ordonez virus PCR was not detected. Most recent POC glucose is 165. Lipid Panel: Cholesterol 168, cholesterol 166, LDL of 99 and HDL of 33. PT is 10.8, INR is 1.0, PTT is 23.4 CT of the head is reported as there is some white matter hypodensity in hyperdensity in the left centrum semiovale and the left thalamus which is impr camelia compared to last exam and could relate to resolving ischemia. No evidence of a new abnormality. I personally reviewed the CT of the head there is no acute or subacute ischemia. There is no acute or subacute intraparenchymal hemorrhage. 2-D echo was reported as mild concentric left ventricular hypertrophy. Ejection fraction for of 55-60%. Left atrium is moderately dilated. - Labs CBC & Chem 7: 06/06/21 22:49 06/06/21 22:49 Labs: Abnormal Lab Results - Last 24 Hours (Table) 06/08/21 06/08/21 06/08/21 Range/Units 06:23 12:18 16:59 POC Glucose (mg/dL) 165 H 255 H (75-99) mg/dL Triglycerides 168.00 H (0.00-149.00) mg/dL HDL Cholesterol 33.00 L (40.00-60.00) mg/dL 06/08/21 06/09/21 Range/Units 20:52 06:39 POC Glucose (mg/dL) 188 H 150 H (75-99) mg/dL Triglycerides (0.00-149.00) mg/dL HDL Cholesterol (40.00-60.00) mg/dL Assessment and Plan Assessment: Non-STEMI History of Left thalamus hemorrhage likely due to uncontrolled hypertension residual right hemiparesis (weakness more in upper than lower) Atrial fibrillation not on anticoagulation (because of history of intracranial bleed) Because mellitus and the presented with hyperglycemia (in 600's) since had steroid use End-stage renal disease on dialysis Mild to moderate hyponatremia Plan: * Regarding pursuing cardiac cath/use of anticoagulation. Per Cardiology team, they will treat medically. * Currently patient is on ASA 325mg daily and Lipitor 10mg qhs. * Every 4 hours neuro checks * We'll defer the rest of medical management to the cardiology team and the primary team * Regarding the use of anticoagulation down the line because of Atrial fibrillation. Spoke with the patient and his and they stated there are in agreement of using anticoagulation to avoid the risk of a stroke and they are aware of a risk of a bleed with the use of anticoagulation. From a neurological perspective the patient is clear on starting anticoagulation and we'll defer the medication use to the cardiology team (consider using Eliqius if patient's insurance covers it). Once patient is started on anticoagulation recommend stopping antiplatelets to avoid increase risk of bleed. Also once on anticoagulation, recommend repeating CT brain within 3 days to rule out any intracranial bleed. Patient will follow-up with his [employer] (Dr. Boyd) as outpatient for further discussion regarding use of anticoagulation. * Nephrology is on board. * He was notified to continue to monitor his blood pressure at home and make sure it is controlled. * Upon discharge the patient will follow-up with me in clinic on 06/12/2021 for neurological follow-up. The plan is discussed with the patient and primary team. There is no further neurological work-up. Neurology will sign off. Please reconsult if needed. Mark Diaz M.D. Neuro-hospitalist Time with Patient: Less than 30
[2021-06-09 10:52] VITALS: BP 144/65; PULSE 90; RESP 18
--- NOTE | 2021-06-09 12:01 | PN ---
PROGRESS NOTE Patient is seen for followup for end-stage renal disease. He is doing well. Denies any significant complaints. He wants to pursue peritoneal dialysis. This will be set up as outpatient. In the meantime, patient will be dialyzed tomorrow for hemodialysis as outpatient. PHYSICAL EXAMINATION: On examination today, blood pressure 144/65, heart rate 90 per minute. He is afebrile. Examination shows right hemiparesis with edema noted bilaterally, worse on the right side than on the left. LABS: No labs available from today. ASSESSMENT: 1. End-stage renal disease, on hemodialysis on a Thursday, Thursday, Thursday schedule. 2. Volume overload expect improvement with ongoing treatments. 3. Acute non ST elevation myocardial infarction with no plans for cardiac catheterization at this time. 4. History of recent cerebrovascular accident with intracranial bleed and right hemiparesis continuously improving. PLAN: Hemodialysis tomorrow as outpatient and we will proceed with referral for PD catheter placement as outpatient. MMODL / IJN: [id number] /
--- NOTE | 2021-06-09 20:34 | P.DS ---
Providers Date of admission: 06/07/21 04:54 Attending physician: Yamilet Gorman Consults: 06/07/21 04:54 Consult Physician Routine Consulting Provider: Shannon Hanson Consult Reason/Comments: HD Do you want consulting provider notified?: Yes Consult Physician Urgent Consulting Provider: Malik Boyd Consult Reason/Comments: known Do you want consulting provider notified?: Yes 06/07/21 12:39 Consult Physician Urgent Consulting Provider: Mark Diaz Consult Reason/Comments: risk assessment for cardiac cath Do you want consulting provider notified?: Yes Primary care physician: Katerina Albert [facility] Course: Diagnoses: Elevated troponin, suspected non-STEMI Acute on chronic congestive heart failure End-stage renal disease on hemodialysis hyponatremia 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, with right hemiparesis, wtih impaired speech, patient in wheelchair History of atrial fibrillation not on anticoagulation Diabetes Mellitus with hyperglycemia GERD Hyperlipidemia Hypertension Sleep Apnea/CPAP/BIPAP 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 GOUT [address] his patient of Dr. Borges. Dr. Hanson and printed circuit designer Dr. Boyd. Patient states that he wasn't sure if he had CABG but that was 10 years ago. Patient initially presented with chest pain of 2 hours in duration And resolved spontaneously. No dyspnea no palpitations or syncope. On admission he had elevated troponin, Troponin elevated 0.15, went up to 5.3 and repeat troponin is 8.6 and 7.9 . Because of this printed circuit designer evaluation was obtained recommended further workup Echocardiogram showed ejection fraction of 55-60% with moderate concentric left ventricular hypertrophy. Also neurology consult was obtained for his recent history of cerebral hemorrhage in severity. Patients remain asymptomatic for 2 days monitored in the hospital. No chest pain or dyspnea or other symptoms. Today I discussed the case with printed circuit designer Dr. Henderson and neurologist Dr. Diaz who saw the patient given his hospital stay included today. As per Dr. Henderson, no cardiac cath currently no surgical intervention and continue with conservative management. Dr. Henderson told me that the patient wants to be on aspirin 81 mg daily and that what he recommend now upon discharge. Also I discussed the case with Dr. Diaz neurologist who recommended patient to be reassessed for need further anticoagulation as an outpatient with his printed circuit designer Dr. Boyd. Then I talked to the patient and at bedside and discussed all his problems including his non-STEMI and history of cerebral bleed and management and their effect on both problems, risks explained to him and his including but not limited to risk of recurrent cardiac attack, recurrent bleeding into the brain, side effect of medication, benefits and risks of medication, risk of and he verbalized understanding and acceptance and all their questions were answered to their satisfaction. Patient told me and told his that his wishes this to be discharged on baby aspirin only, and he agrees on holding anticoagulation for now and he agrees to discuss it with his printed circuit designer Dr. Boyd as an outpatient in 1 week. Also patient told me he is willing to follow up with neurologist Dr. Diaz and that they have already received his contact informatio n and would follow up with him as well to decide about further treatment options including possible anticoagulation. Patient confirmed to me clearly that he does not want any anticoagulation for now upon discharge, he is aware of risk of bleeding with aspirin including intracerebral bleed. And he is aware of the risk of stroke is higher without anticoagulation (like Eliquis or Coumadin he was taking before) told me she does not need prescription for aspirin and she can get it and has at home. Patient is asymptomatic and back to his baseline. On the day of discharge he denies chest pain or discomfort. No dyspnea. No dizziness or new headache or weakness or numbness. No abdominal pain or vomiting or diarrhea. No change in urine habits. No fever. Patient confirmed to me he is back to his baseline. Patient is eager to be discharged today this morning Again patient was cleared for discharge by printed circuit designer and neurologist Problems and management plan were discussed with the patient and he verbalized understanding and acceptance Patient was found stable and can be discharged home in guarded prognosis however he needs follow-up as an outpatient. Patient was instructed to follow up with PCP Dr. Borges within one week and patient agrees Patient was instructed to follow up with his printed circuit designer Dr. Boyd in one week and neurologist Dr. Diaz in 1 week as well and he agrees to call and make his own appointments tomorrow as today is weakened -Physical exam Gen: patient is a AAOx3, no distress. Obese CVS: S1-S2, RRR, no murmur Lungs: B/L CTA, no wheezing Abdomen: soft, no distention, no tenderness, positive bowel sounds Extremity: no leg edema or induration -Neurologic: Cranial nerves are grossly intact. Chronic right hemiparesis. Sensation is intact. Meningeal signs are absent Time spent more than 35 minutes Patient Condition at Discharge: Serious Plan - Discharge Summary Discharge Rx Participant: Yes New Discharge Prescriptions: New Aspirin EC [Ecotrin Low Dose] 81 mg PO DAILY 7 Days #7 tab Isosorbide Mononitrate ER [Imdur] 30 mg PO DAILY #30 tablet Continue allopurinoL [Zyloprim] 200 mg PO DAILY Glimepiride [Amaryl] 1 mg PO BID Cholecalciferol [Vitamin D3 (25 Mcg = 1000 Iu)] 50 mcg PO BID Gabapentin [Neurontin] 200 mg PO HS atenoloL 25 mg PO BID Acetaminophen Tab [Tylenol] 1,000 mg PO Q4H PRN PRN Reason: Pain Sennosides [Senokot] 8.6 mg PO DAILY PRN PRN Reason: Constipation Gabapentin [Neurontin] 100 mg PO DAILY@1200 PRN PRN Reason: nerve pain Omeprazole [PriLOSEC] 20 mg PO DAILY Furosemide [Lasix] 40 mg PO BID Atorvastatin [Lipitor] 10 mg PO HS calcitrioL [Calcitriol] 0.5 mcg PO MOWEFR Nitroglycerin Sl Tabs [Nitrostat] 0.4 mg SUBLINGUAL Q5M PRN PRN Reason: Chest Pain Vit B Complx C/Folic Acid/Zinc [Renaplex Tablet] 1 tab PO DAILY Discontinued Midodrine [ProAmatine] 5 mg PO BID PRN PRN Reason: Blood Pressure - Low Discharge Medication List Atorvastatin [Lipitor] 10 mg PO HS 11/13/20 [History] Cholecalciferol [Vitamin D3 (25 Mcg = 1000 Iu)] 50 mcg PO BID 11/13/20 [History] Furosemide [Lasix] 40 mg PO BID 11/13/20 [History] Gabapentin [Neurontin] 200 mg PO HS 11/13/20 [History] Glimepiride [Amaryl] 1 mg PO BID 11/13/20 [History] Omeprazole [PriLOSEC] 20 mg PO DAILY 11/13/20 [History] allopurinoL [Zyloprim] 200 mg PO DAILY 11/13/20 [History] atenoloL 25 mg PO BID 11/13/20 [History] calcitrioL [Calcitriol] 0.5 mcg PO MOWEFR 11/13/20 [History] Acetaminophen Tab [Tylenol] 1,000 mg PO Q4H PRN 05/07/21 [History] Nitroglycerin Sl Tabs [Nitrostat] 0.4 mg SUBLINGUAL Q5M PRN 05/07/21 [History] Sennosides [Senokot] 8.6 mg PO DAILY PRN 05/07/21 [History] Vit B Complx C/Folic Acid/Zinc [Renaplex Tablet] 1 tab PO DAILY 05/07/21 [History] Gabapentin [Neurontin] 100 mg PO DAILY@1200 PRN 06/07/21 [History] Aspirin EC [Ecotrin Low Dose] 81 mg PO DAILY 7 Days #7 tab 06/09/21 [Rx] Isosorbide Mononitrate ER [Imdur] 30 mg PO DAILY #30 tablet 06/09/21 [Rx] Follow up Appointment(s)/Referral(s): Roosevelt Borges MD [Primary Care Provider] - 1-2 days Mark Diaz MD [STAFF PHYSICIAN] - 1 Week (follow up on 06/12) Malik Boyd MD [STAFF PHYSICIAN] - 1 Week (please discuss with your doctor your anti-coagulation plan) Patient Instructions/Handouts: Chest Pain (DC) Activity/Diet/Wound Care/Special Instructions: Heart healthy, renal diet Activity is restricted till you see your doctor We recommend to check her glucose 4 times a day before each meal and at bedtime, keeping the results in a log book and bring it to your doctor on your appointment date if your glucose is less than 70 or more than 400 then call 911 and come to emergency room Please continue with baby aspirin 81 mg daily till see your printed circuit designer in one week please Please call 911 and come to emergency room if you develop any symptoms of headache, weakness, numbness, blurred vision, slurred speech, word Finding difficulty, confusion, chest pain, shortness of breath, palpitation, dizziness, syncope or bleeding from anywhere or any other symptoms. Discharge Disposition: HOME SELF-CARE
--- NOTE | 2021-06-12 14:14 | CDI ---
Documentation Clarification Form Date: 06/12/21 From: Shannen Sage Admit Date: 06/07/2021 04:54:00 AM Patient Name: Roman Werner Visit Number: [id number] Discharge Date: 06/09/2021 12:26:00 PM ATTENTION: The Clinical Documentation Specialists (CDI) and [facility] Coding Staff appreciate your assistance in clarifying documentation. Please respond to the clarification below the line at the bottom and electronically sign. The CDI & [facility] Coding staff will review the response and follow-up if needed. Please note: Queries are made part of the Legal Health Record. If you have any questions, please contact the author of this message via ITS. Dr. Ramos E Sheet, Your patient has the documented diagnosis of acute and chronic unspecified CHF int the H&P, DS & PN on 06/08. Additional information regarding the [type, acuity] of CHF is requested. History/Risk Factors: HTN w ESRD & CHF, right sided hemiplegia, chronic atrial fibrillation, DM type II Clinical Indicators: Elevated troponin, suspected non-STEMI. Acute on chronic congestive heart failure. VS/Pulse OX: T 97.7, P 103, R 18, BP 146/82, O2 SAT 97 BNP: [id number] Echocardiogram Results: Overall left ventricular systolic function is normal with, an EF between 55 - 60 %. Chest X Ray: There is interstitial pneumonia which appears new compared to old exam. Treatment: IV Lasix 40 Mg Q12HR, IV Lasix 40 Mg po BID In your professional opinion, can you please clarify the [acuity and type] of CHF if known? [ ] Acute on Chronic Diastolic Heart Failure (preserved EF) [ ] Acute on chronic Systolic heart failure { } Acute on chronic diastolic & systolic Heart Failure [ ] Other, please specify [ ] Unable to determine cute on Chronic Diastolic Heart Failure MTDD
== END 2021-06-09 12:26 | disposition home or self-care (01) | DRG 280 ==
LOC: EC 21:38 → 3SCARD 06-07 04:54
PROVIDERS: ADMIT Hospitalist; ATTEND Hospitalist
PROC: 5A1D70Z Performance of Urinary Filtration, Intermittent, Less than 6 Hours Per Day (ICD-10-PCS; principal; 2021-06-07)
DX: I21.4 Non-ST elevation (NSTEMI) myocardial infarction (principal); N18.6 End stage renal disease; I50.33 Acute on chronic diastolic (congestive) heart failure; I13.2 Hypertensive heart and chronic kidney disease with heart failure and with stage 5 chronic kidney disease, or end stage renal disease; E87.1 Hypo-osmolality and hyponatremia; I69.151 Hemiplegia and hemiparesis following nontraumatic intracerebral hemorrhage affecting right dominant side; T85.611A Breakdown (mechanical) of intraperitoneal dialysis catheter, initial encounter; I48.20 Chronic atrial fibrillation, unspecified; J84.89 Other specified interstitial pulmonary diseases; D63.1 Anemia in chronic kidney disease; E11.319 Type 2 diabetes mellitus with unspecified diabetic retinopathy without macular edema; E83.9 Disorder of mineral metabolism, unspecified; E11.22 Type 2 diabetes mellitus with diabetic chronic kidney disease; E11.40 Type 2 diabetes mellitus with diabetic neuropathy, unspecified; E11.65 Type 2 diabetes mellitus with hyperglycemia; Z99.2 Dependence on renal dialysis; Z20.822 Contact with and (suspected) exposure to COVID-19; I69.128 Other speech and language deficits following nontraumatic intracerebral hemorrhage; H54.8 Legal blindness, as defined in USA; K21.9 Gastro-esophageal reflux disease without esophagitis; E78.5 Hyperlipidemia, unspecified; E78.00 Pure hypercholesterolemia, unspecified; M10.9 Gout, unspecified; G47.30 Sleep apnea, unspecified; I25.2 Old myocardial infarction; E66.9 Obesity, unspecified; Z68.36 Body mass index [BMI] 36.0-36.9, adult; Z79.84 Long term (current) use of oral hypoglycemic drugs; Z79.899 Other long term (current) drug therapy; Z87.891 Personal history of nicotine dependence; Z98.84 Bariatric surgery status; Z88.0 Allergy status to penicillin; Z88.8 Allergy status to other drugs, medicaments and biological substances; Z91.030 Bee allergy status; Z82.49 Family history of ischemic heart disease and other diseases of the circulatory system; Z83.3 Family history of diabetes mellitus; Z84.1 Family history of disorders of kidney and ureter; Y81.2 Prosthetic and other implants, materials and accessory general- and plastic-surgery devices associated with adverse incidents
CPT/HCPCS: 36415; 70450; 71046; 74160; 80053; 80061; 82550; 82553; 82565; 83690; 83735; 83880; 84484; 84520; 85025; 85610; 85730; 87635; 90935; 93005; 93306; 96374; 96375; 99285

== ENCOUNTER → 2021-06-06 | Outpatient (CLI) | payer MEDICARE, BC ==
--- NOTE | 2021-06-07 08:58 | CT ---
EXAMINATION TYPE: CT abdomen w con DATE OF EXAM: 06/06/2021 COMPARISON: None HISTORY: Abdomen pain, hx gastric sleeve, pd catheter ureter & removal. Pt receives dialysis -- at 7:15 am. Current labs GFR-16, C-3.90 B-37. Spoke to Dr. Frederick who requested acknowledgement from ord ering physician regarding labs/dialysis schedule, ect. Dr. Zoraida Grijalvaved physician aviation safety technician-[employer] ve documentation scanned in. Pt given 80 ml w/saline flush after test. Advised to oral hydrate CT DLP: 1508 mGycm Automated exposure control for dose reduction was used. TECHNIQUE: Helical acquisition of images was performed from the lung bases through the top of iliac crest to include entire abdomen. CONTRAST: Performed with Oral Contrast and with IV Contrast, patient injected with 80 mL of Isovue 300. FINDINGS: There are coronary artery calcifications. There is a small hiatal hernia. LUNG BASES: No significant abnormality is appreciated. LIVER/GB: Gallbladder is contracted. No evident liver mass. PANCREAS: No significant abnormality is seen. SPLEEN: Borderline enlarged ADRENALS: No significant abnormality is seen. KIDNEYS: Perinephric fluid attenuation may be secondary to renal failure. There is poor excretion of contrast on delayed images BOWEL: No significant abnormality is seen. The appendix is normal LYMPH NODES: No significant abnormality is appreciated. OSSEOUS STRUCTURES: Degenerative disc changes are present. Bone mineralization thought to be reduced . FREE AIR: No Free Air visible ASCITES: None visible. RETROPERITONEAL ADENOPATHY: No Retroperitoneal Adenopathy visible. OTHER: Some increased attenuation in the subcutaneous fat in the periumbilical location may represent a focal scar, is a focal defect present within the rectus abdominis muscle at this level, correlate for surgical history IMPRESSION: NO ACUTE ABNORMALITY, CORONARY ARTERY DISEASE. SPLENOMEGALY IS BORDERLINE. FINDINGS CONSISTENT WITH P BOOM'S HISTORY OF RENAL FAILURE, ADDITIONAL FINDINGS ABOVE.
== END | disposition home or self-care (01) ==
LOC: RADCTMAIN 14:38
PROVIDERS: ATTEND Internal Medicine Nephrology
DX: R10.9 Unspecified abdominal pain (principal)
CPT/HCPCS: 82565; 84520; 74160; Q9967

== ENCOUNTER → 2021-07-17 | Outpatient (CLI) | payer MEDICARE, BC ==
--- NOTE | 2021-07-17 09:04 | CT ---
EXAMINATION TYPE: CT brain wo con DATE OF EXAM: 07/17/2021 COMPARISON: 06/07/2021 HISTORY: 60-year-old male I61.9, Q28.2, evaluate for bleed after starting anticoagulants, prior histo ry of brain bleed TECHNIQUE: Examination was done in axial plane without intravenous contrast. Coronal and sagittal r econstructions performed. CT DLP: 1090.4 mGycm Automated exposure control for dose reduction was used. FINDINGS: There is no evidence of acute intracranial hemorrhage, acute ischemic changes, mass, mass-effect, or extra-axial fluid collection. There is no effacement of cerebral sulci or basal subarachnoid cister ns. There is no hydrocephalus. There is no midline shift. Smith-white matter distinction is preserv ed. Evolution to a now chronic encephalomalacia left posterior basal ganglia/posterior limb internal caps ule extending into the valdivia radiata. Mild patchy white matter hypodensities and posterior bone francisco spheres suggesting mild burden of chronic small vessel ischemic disease. Paranasal sinuses and mastoid air cells are well pneumatized. Orbits and globes are intact. IMPRESSION: No acute intracranial abnormality seen. Evolution to now chronic encephalomalacia left posterior basa l ganglia and left valdivia radiata from prior infarct.
== END | disposition home or self-care (01) ==
LOC: RADCTMAIN 07:04
PROVIDERS: ATTEND Student in an Organized Health Care Education/Training Program
DX: I61.9 Nontraumatic intracerebral hemorrhage, unspecified (principal); Q28.2 Arteriovenous malformation of cerebral vessels
CPT/HCPCS: 70450

== ENCOUNTER 2021-07-19 05:51 | Day surgery (SDC) | payer MEDICARE, BC ==
[2021-07-16 13:47] VITALS: BMI 35.0
[2021-07-19] MEDS ORDERED: ALPRAZolam 0.5 MG TAB PO PRN (05:52)
[2021-07-19] MEDS ORDERED: NITROGLYCERIN SL TABS 0.4 MG TAB SUBLINGUAL PRN ×3 (05:52→17:32)
[2021-07-19] MEDS ORDERED: HEPARIN SODIUM,PORCINE 2,500 UNIT in SODIUM CHLORIDE 0.9% 250 ML IRRIGATION PRN (05:52)
[2021-07-19] MEDS ORDERED: ALPRAZolam 0.25 MG TAB PO PRN (05:52)
[2021-07-19] MEDS ORDERED: HEPARIN SODIUM,PORCINE 10,000 UNIT in SODIUM CHLORIDE 0.9% 1,000 ML IRRIGATION PRN (05:52)
[2021-07-19] MEDS ORDERED: ASPIRIN 81 MG ONE (06:52)
[2021-07-19] MEDS ORDERED: ASPIRIN 325 MG TAB PO ONE (07:00)
[2021-07-19] MEDS ORDERED: SODIUM CHLORIDE 0.9% 1,000 ML IV ONE (07:00)
[2021-07-19] MEDS ORDERED: atenoloL 25 MG TAB PO STA (07:02)
[2021-07-19] MEDS ORDERED: ISOSORBIDE MONONITRATE ER 30 MG TAB.ER.24H PO STA (07:03)
[2021-07-19 07:13] LABS: Glucose,Whole Blood 328 mg/dL (75-99)
[2021-07-19 07:14] LABS: Basophils % (A) 0 %; Eosinophils % (A) 0 %; HCT 37.2 % (39.0-53.0); HGB 12.5 gm/dL (13.0-17.5); Lymphocytes # (A) 0.7 k/uL (1.0-4.8); Lymphocytes % (A) 7 %; MCH 35.5 pg (25.0-35.0); MCHC 33.6 g/dL (31.0-37.0); MCV 105.7 fL (80.0-100.0); Macrocytosis Moderate; Mean Platelet Volume 8.5; Monocytes # (A) 0.3 k/uL (0-1.0); Monocytes % (A) 3 %; Neutrophils # (A) 8.9 k/uL (1.3-7.7); Neutrophils % (A) 90 %; Platelet Count 171 k/uL (150-450); RBC 3.52 m/uL (4.30-5.90); RDW 15.1 % (11.5-15.5); WBC 9.9 k/uL (3.8-10.6)
[2021-07-19] MEDS: INSULIN ASPART (NovoLOG) 100 UNIT/ML VIAL SQ SCH ×5 (07:25→20:01)
[2021-07-19] MEDS ORDERED: amLODIPine 10 MG TAB PO STA (07:36)
[2021-07-19] MEDS ORDERED: amLODIPine 5 MG TAB ONE (07:37)
[2021-07-19 08:21] LABS: Calcium 9.3 mg/dL (8.4-10.2); Potassium 4.5 mmol/L (3.5-5.1)
[2021-07-19] MEDS ORDERED: LIDOCAINE 1% INJ 10MG/ML (20 ML MDV) ONE (08:45)
[2021-07-19] MEDS ORDERED: fentaNYL (PF) 50 MCG/ML 2 ML AMP ONE (08:47)
[2021-07-19] MEDS ORDERED: MIDAZOLAM 2 MG/2 ML VIAL IV ONE (08:57)
[2021-07-19] MEDS ORDERED: LIDOCAINE 1% INJ 10MG/ML (20 ML MDV) SQ ONE (08:59)
[2021-07-19] MEDS ORDERED: HEPARIN SODIUM 1,000 UN/ML (10ML VL) ONE (09:35)
[2021-07-19] MEDS ORDERED: CLOPIDOGREL 75 MG TAB ONE (09:36)
[2021-07-19] MEDS: HEPARIN SODIUM 1,000 UN/ML (10ML VL) IVP ONE ×2 (09:39→09:50)
[2021-07-19] MEDS ORDERED: CLOPIDOGREL 75 MG TAB PO ONE (09:43)
[2021-07-19] MEDS: NITROGLYCERIN 1000MCG/10ML SYRINGE INTRAARTER ONE ×2 (09:52→10:17)
[2021-07-19] MEDS ORDERED: IOPAMIDOL-370 125ML BTL INJ ONE (09:59)
[2021-07-19] MEDS ORDERED: hydrALAZINE HCL 20 MG/ML 1 ML VIAL ONE (10:11)
[2021-07-19] MEDS: hydrALAZINE HCL 20 MG/ML 1 ML VIAL IVP ONE ×2 (10:14→10:20)
[2021-07-19] MEDS ORDERED: hydrALAZINE HCL 20 MG/ML 1 ML VIAL IVP PRN (10:21)
--- NOTE | 2021-07-19 10:23 | P.NPCON ---
History of Present Illness - Reason for Consult end stage renal disease - History of Present Illness Reason for consultation: End-stage renal disease History of present illness: Patient is a 60-year-old male seen in consultation for end-stage renal disease. He is maintained on hemodialysis on Thursday schedule. Patient presented to the hospital for elective cardiac catheterization which is to be done today. He currently denies any chest pain or shortness of breath. No vomiting or diarrhea. No fever or chills. No cough. Patient has a history of diastolic CHF. Patient also has history of cerebral hemorrhage as well as A. fib. Patient's currently resting in bed. No active complaints. Last hemodialysis was on Thursday. He will be dialyzed after cardiac catheterization today. Vital signs are stable. General: The patient appeared well nourished and normally developed. HEENT: Head exam is unremarkable. LUNGS: Breath sounds decreased. HEART: Rate and Rhythm are regular. ABDOMEN: Soft, no distention. EXTREMITITES: No edema. Past Medical History Past Medical History: Atrial Fibrillation, CVA/TIA, Diabetes Mellitus, Eye Disorder, GERD/Reflux, Hyperlipidemia, Hypertension, Myocardial Infarction (DC), Renal Disease, Sleep Apnea/CPAP/BIPAP Additional Past Medical History / Comment(s): CVA 03/28/21 reulting in brain bleed, impaired speech,right side paralysis , patient in wheelchair, can pivot with help. 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 GOUT, renal failure, dialysis MOWEFR. RENAL FAILURE NO CPAP. Last Myocardial Infarction Date:: , 06/06/21 History of Any Multi-Drug Resistant Organisms: None Reported Past Surgical History: Bariatric Surgery, Heart Catheterization Additional Past Surgical History / Comment(s): GASTRIC SLEEVE 03/2013, EGD, Hemodialysis catheter placement. peritoneal catheter inserted and removed Past Anesthesia/Blood Transfusion Reactions: Previous Problems w/ Anesthesia Additional Past Anesthesia/Blood Transfusion Reaction / Comment(s): DIFFICULT INTUBATION - FIRST ATTEMPT AT BARIATRIC SURGERY WAS CANCELLED BECAUSE OF IT. LATER ATTRITUBTED TO OBESITY, PT WAS OVER 300LBS. Smoking Status: Former smoker - Past Family History Mother Family Medical History: Cancer, Congestive Heart Failure (CHF) Father Family Medical History: Congestive Heart Failure (CHF), Diabetes Mellitus, Renal Disease Medications and Allergies Home Medications Medication Instructions Recorded Confirmed Type Atorvastatin [Lipitor] 10 mg PO HS 11/13/20 07/19/21 History Cholecalciferol [Vitamin D3 (25 50 mcg PO BID 11/13/20 07/19/21 History Mcg = 1000 Iu)] Furosemide [Lasix] 40 mg PO BID 11/13/20 07/19/21 History Gabapentin [Neurontin] 200 mg PO HS 11/13/20 07/19/21 History Glimepiride [Amaryl] 1 mg PO BID 11/13/20 07/19/21 History Omeprazole [PriLOSEC] 20 mg PO DAILY 11/13/20 07/19/21 History allopurinoL [Zyloprim] 200 mg PO DAILY 11/13/20 07/19/21 History atenoloL 25 mg PO BID 11/13/20 07/19/21 History calcitrioL [Calcitriol] 0.5 mcg PO MOWEFR 11/13/20 07/16/21 History Acetaminophen Tab [Tylenol] 1,000 mg PO Q4H PRN 05/07/21 07/16/21 History Nitroglycerin Sl Tabs [Nitrostat] 0.4 mg SUBLINGUAL Q5M PRN 05/07/21 07/16/21 History Sennosides [Senokot] 8.6 mg PO DAILY PRN 05/07/21 07/16/21 History Vit B Complx C/Folic Acid/Zinc 1 tab PO DAILY 05/07/21 07/19/21 History [Renaplex Tablet] Gabapentin [Neurontin] 100 mg PO DAILY@1200 PRN 06/07/21 07/16/21 History Isosorbide Mononitrate ER [Imdur] 30 mg PO DAILY #30 tablet 06/09/21 07/19/21 Rx Apixaban [Eliquis] 2.5 mg PO BID 07/16/21 07/16/21 History Aspirin 81 mg PO DAILY PRN 07/19/21 07/19/21 History Allergies Allergy/AdvReac Type Severity Reaction Status Date / Time aprepitant [From Emend] Allergy Swelling Verified 07/16/21 13:03 bee venom protein (honey bee) Allergy Anaphylaxis Verified 07/16/21 13:03 fosaprepitant [From Emend] Allergy Swelling Verified 07/16/21 13:03 iodine Allergy Swelling Verified 07/16/21 13:03 Iodine and Iodide Containing Allergy HEADACHES, Verified 07/16/21 13:05 Produc SINUS PROBLEM, NASAL DRAINAGE Penicillins Allergy Unknown Verified 07/16/21 13:03 Childhood Physical Exam Vitals: Vital Signs Temp Pulse Resp BP Pulse Ox 07/19/21 07:16 97.5 F L 92 16 183/110 98 Intake and Output 07/18/21 07/19/21 07/19/21 22:59 06:59 14:59 Intake Total 350 Balance 350 Intake: IV 350 Other: Weight 102.512 kg Results - Lab Results Most recent lab results Calcium 9.3 mg/dL (8.4-10.2) 07/19/21 07:39 07/19/21 07:00 07/19/21 07:39 Assessment and Plan Plan: Assessment: 1. End-stage renal disease maintained on hemodialysis on Thursday schedule. 2. Chest pain. Scheduled for cardiac catheterization today. 3. Chronic diastolic CHF. 4. Hypertension with chronic kidney disease. 5. Chronic kidney disease mineral bone disease. 6. Diabetes mellitus. 7. History of A. fib. Plan: Hemodialysis today. Home medications to be resumed. Add hydralazine 10 mg IV every 6 hours as needed for systolic blood pressure greater than 160. Check phosphorus level. Thank you for the consultation. I will continue to follow the patient with you during his hospital stay.
[2021-07-19] MEDS ORDERED: IOPAMIDOL-370 100ML BTL INJ ONE (10:25)
--- NOTE | 2021-07-19 10:27 | CC ---
CARDIAC CATHETERIZATION REPORT INDICATION: Abnormal stress test in a patient who had recent myocardial infarction and is to undergo surgery for replacement of peritoneal dialysis catheter. He had a stress test that showed a moderate-sized reversible perfusion defect in anterolateral wall. PROCEDURE NOTE: After obtaining informed consent, left heart catheterization and coronary angiogram were performed via the right femoral artery using standard Alotn catheters. The patient tolerated the procedure well without any obvious immediate complications. Patient received moderate conscious sedation. Total sedation time was 16 minutes. Patient has ALLERGY TO IV DYE and has been prepped for the same. FINDINGS: HEMODYNAMICS: Left ventricular end-diastolic pressure is 16 mm. There is no significant gradient across the aortic valve. LEFT VENTRICULOGRAM: Left ventriculogram was not done. ANGIOGRAPHIC DATA: Left main coronary artery. Left main coronary artery appears calcified but is free of significant stenosis. It divides into circumflex coronary artery and LAD. LAD gives off a large-caliber diagonal branch in its mid portion, and distal to that it is a very small-caliber vessel that appears diffusely diseased with a focal 80% to 90% stenosis. Circumflex coronary artery is a nondominant system and appears subtotally occluded in its mid portion. Right coronary artery is a large dominant vessel. It shows moderate area of diffuse disease in the distal RCA. CONCLUSIONS: 1. Three-vessel coronary artery disease as described above. 2. Subtotal occlusion of the circumflex coronary artery that is supplying a viable myocardium, and there is a moderate area of reversible perfusion defect. PLAN: Patient will undergo angioplasty of the circumflex coronary artery and will proceed with surgery for peritoneal dialysis shunt 4 weeks after that. I spoke to Dr. Chow, who is going to perform the angioplasty of the circumflex. MMODL / TONEYN: [id number] /
[2021-07-19 11:10] LABS: Glucose,Whole Blood 305 mg/dL (75-99)
[2021-07-19] MEDS ORDERED: RX INFO: IV CONTRAST WAS GIVEN 1 EACH MISC MISCELLANE PRN (13:27)
[2021-07-19] MEDS ORDERED: ZOLPIDEM 5 MG TAB PO PRN (13:27)
[2021-07-19] MEDS ORDERED: ATROPINE SULFATE 0.1 MG/ML 10ML SYRINGE IV PRN (13:27)
[2021-07-19] MEDS ORDERED: MAG HYDROX/AL HYDROX/SIMETH 30 ML CUP PO PRN (13:27)
[2021-07-19] MEDS ORDERED: SODIUM CHLORIDE 0.9% 1,000 ML IV SCH (13:30)
[2021-07-19] MEDS: SODIUM CHLORIDE 0.9% 1,000 ML in EMPTY BAG 1 BAG IV SCH ×3 (13:56→20:05)
--- NOTE | 2021-07-19 13:56 | P.PRCINT ---
Percutaneous Coronary Int. - Percutaneous Coronary Intervention Percutaneous Coronary Intervention: PROCEDURES PERFORMED: Left coronary angiography, PCI of mid to distal circumflex with 2.5 x 15mm Xience TRESSA, 2.25 x 18mm Xience TRESSA and 2.0 x 8mm Lance TRESSA INDICATION: Abnormal stress test, prior OR HISTORY: Patient is a pleasant 60 year old male with history of HTN, HLD, CKD, prior stroke. He had prior hospitalization with NSTEMI and had a stress test showing ischemia in the circumflex territory. Diagnostic catheterization was performed which showed a subtotally occluded circumflex as well as PDA 50-60% stenosis and a small caliber LAD which did not reach the apex. Patient has been evaluated for preoperative clearance for peritoneal dialysis catheter placement. I was asked to perform PCI of the circumflex with expectation of shorted course of dual antiplatelets. PROCEDURE: After the risks, benefits and alternatives of the above mentioned procedure explained in detail with the patient, informed consent was obtained. Patient had already been taken to the catheterization lab and prepped and draped in usual fashion. A 6Fr sheath had already been placed in the right femoral artery. Heparin was given for ACT > 250. A 6Fr CLS 3.5 catheter was used to engage the left main. A 0.014 wire was advanced into the distal circumflex. Predilation was performed with a 1.5 x 12mmm balloon. Once opened, there was an additional distal circumflex 85% stenosis and a mid circumflex 70% stenosis. A 2.0 x 8mm Lance TRESSA was placed at the distal circumflex lesion. A 2.25 x 18mm Xience TRESSA was placed and deployed at the mid circumflex lesion. A 2.5 x 12mm Xience TRESSA was placed at the proximal to mid circumflex lesion. There was a more proximal circumflex 40-50% stenosis which was felt best treated medically as well as distal OM diffuse 50% stenosis felt best treated medically. Pre intervention there was 99% stenosis with DRE 1 flow and post intervention there was < 10% stenosis with DRE 3 flow and no dissection. A right femoral angiogram showed adequate anatomy for closure and a 6Fr Angiose al was placed with hemostasis achieved. The patient tolerated the procedure well. Patient was transported back to the post catheterization holding area in stable condition. Conscious Sedation: Patient was monitored under the direct supervision of vision of myself for conscious sedation using Versed and fentanyl for a total duration of 54 minutes SELECTIVE CORONARY ARTERIOGRAPHY: LEFT MAIN: The left main is large caliber with no significant stenosis. LEFT ANTERIOR DESCENDING CORONARY ARTERY: The LAD is large caliber and however becomes a small caliber vessel at the apex. There is a 80% stenosis of a very small caliber distal LAD. LEFT CIRCUMFLEX CORONARY ARTERY: The left circumflex is moderate caliber vessel and gives off 1 OM branch and an AV branch. The proximal to mid circumflex has a 99% stenosis and the mid circumflex has a 70% stenosis as well as a more focal distal circumflex 90% stenosis. RIGHT CORONARY ARTERY: The right coronary artery was not imaged, see diagnostic images. FINAL IMPRESSION: 1. CAD as described above with diffuse disease of the circumflex with tandem 99%, 70% and 90% circumflex stenosis, s/p PCI of mid to distal circumflex with 2.5 x 15mm Xience TRESSA, 2.25 x 18mm Xience TRESSA and 2.0 x 8mm [place] DE PLAN: 1. Aggressive risk factor modification per most recent ACC/AHA guidelines. 2. Continue Eliquis and Plavix for minimum of 1 month. If after 1 month, surgery is felt to be necessary would hold Eliquis and Plavix however would recommend aspirin through the perioperative time and then restarting Eliquis and Plavix.
[2021-07-19 17:25] LABS: Glucose,Whole Blood 145 mg/dL (75-99)
[2021-07-19] MEDS ORDERED: SENNOSIDES 8.6 MG TAB PO PRN (17:32)
[2021-07-19] MEDS ORDERED: ACETAMINOPHEN TAB 500 MG TAB PO PRN (17:32)
[2021-07-19] MEDS: FUROSEMIDE 40 MG TAB PO SCH (17:57)
[2021-07-19 19:54] LABS: Glucose,Whole Blood 214 mg/dL (75-99)
[2021-07-19] MEDS: CHOLECALCIFEROL 25 MCG (1000 IU) TABLET PO SCH (19:54)
[2021-07-19] MEDS: atenoloL 25 MG TAB PO SCH (19:55)
[2021-07-19] MEDS: GLIMEPIRIDE 1 MG TAB PO SCH (19:56)
[2021-07-19] MEDS ORDERED: ATORVASTATIN 10 MG TAB PO SCH (21:00)
[2021-07-19] MEDS ORDERED: GABAPENTIN 100 MG CAP PO SCH (21:00)
[2021-07-20 06:47] LABS: Glucose,Whole Blood 86 mg/dL (75-99)
[2021-07-20 07:50] VITALS: BP 121/76; PULSE 85; RESP 16; TEMP 97.7
[2021-07-20] MEDS: INSULIN ASPART (NovoLOG) 100 UNIT/ML VIAL SQ SCH ×2 (08:53→13:03)
[2021-07-20] MEDS: atenoloL 25 MG TAB PO SCH (08:54)
[2021-07-20] MEDS: CHOLECALCIFEROL 25 MCG (1000 IU) TABLET PO SCH (08:54)
[2021-07-20] MEDS: GLIMEPIRIDE 1 MG TAB PO SCH (08:54)
[2021-07-20] MEDS: FUROSEMIDE 40 MG TAB PO SCH (08:54)
[2021-07-20] MEDS ORDERED: PANTOPRAZOLE 40 MG TABLET PO SCH (09:00)
[2021-07-20] MEDS ORDERED: ASPIRIN 81 MG PO SCH (09:00)
[2021-07-20] MEDS ORDERED: allopurinoL 100 MG TAB PO SCH (09:00)
[2021-07-20] MEDS ORDERED: ISOSORBIDE MONONITRATE ER 30 MG TAB.ER.24H PO SCH (09:00)
[2021-07-20] MEDS ORDERED: NON FORMULARY DRUG (Vit B Complx C/Folic Acid/Zinc [Renaplex Tablet] 1 EACH Tablet) PO SCH (09:00)
[2021-07-20] MEDS ORDERED: APIXABAN 2.5 MG TABLET PO SCH (09:00)
[2021-07-20] MEDS ORDERED: CLOPIDOGREL 75 MG TAB PO SCH (09:00)
--- NOTE | 2021-07-20 09:02 | P.PN ---
Subjective Patient is seen in follow-up for end-stage renal disease. He is maintained on hemodialysis on Thursday schedule. No problems with dialysis yesterday. Tolerated 2.3 L of defecation. Underwent cardiac catheterization yesterday. 3 stents placed. No chest pain or shortness of breath at this time. Vital signs are stable. General: The patient appeared well nourished and normally developed. HEENT: Head exam is unremarkable. LUNGS: Breath sounds decreased. HEART: Rate and Rhythm are regular. ABDOMEN: Soft, no distention. EXTREMITITES: No edema. Objective - Vital Signs Vital signs: Vital Signs Temp 97.7 F 07/20/21 07:25 Pulse 85 07/20/21 07:25 Resp 16 07/20/21 07:25 BP 121/76 07/20/21 07:25 Pulse Ox 97 07/20/21 07:25 Intake & Output 07/19/21 07/20/21 07/20/21 18:59 06:59 18:59 Intake Total 450 118 Output Total 2300 Balance -1850 118 Weight 102.512 kg Intake: IV 450 Oral 118 Output: Hemodialysis 2300 Other: # Voids 2 - Labs CBC & Chem 7: 07/19/21 07:00 07/19/21 07:39 Labs: Abnormal Lab Results - Last 24 Hours (Table) 07/19/21 07/19/21 07/19/21 Range/Units 07:39 11:08 17:17 POC Glucose (mg/dL) 305 H 145 H (75-99) mg/dL Phosphorus 5.0 H (2.5-4.5) mg/dL 07/19/21 Range/Units 19:53 POC Glucose (mg/dL) 214 H (75-99) mg/dL Phosphorus (2.5-4.5) mg/dL Assessment and Plan Plan: Assessment: 1. End-stage renal disease maintained on hemodialysis on Thursday schedule. 2. Coronary artery disease status post cardiac catheterization July 19 with 3 stents placed in the circumflex. 3. Chronic diastolic CHF. 4. Hypertension with chronic kidney disease. Stable. 5. Chronic kidney disease mineral bone disease maintained on calcitriol. Phosphorous 5.0. 6. Diabetes mellitus. 7. History of A. fib. Plan: Hemodialysis Thursday.
[2021-07-20] MEDS: SODIUM CHLORIDE 0.9% 1,000 ML in EMPTY BAG 1 BAG IV SCH (10:04)
[2021-07-20] MEDS ORDERED: GABAPENTIN 100 MG CAP PO PRN (12:00)
[2021-07-20 12:01] LABS: Glucose,Whole Blood 249 mg/dL (75-99)
--- NOTE | 2021-07-20 13:13 | P.DS ---
Providers Date of admission: 07/19/2021 Expected date of discharge: 07/20/21 Attending physician: Malik Boyd Consults: 07/19/21 07:42 Consult Physician Urgent Consulting Provider: Shannon Hanson Consult Reason/Comments: dialysis Do you want consulting provider notified?: Already Contacted 07/19/21 13:28 Consult Physician Routine Consulting Provider: [facility] Consult Reason/Comments: Post Interventional patient Do you want consulting provider notified?: Already Contacted [facility]: This pleasant 60-year-old gentleman who follows in the office with Dr. Boyd. 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 He had a prior hospitalization with non-STEMI. Presented to the hospital yesterday for cardiac catheterization. He is being recommended to undergo replacement of peritoneal dialysis catheter and as part of his preoperative testing underwent MPI which showed moderate size reversible perfusion defect in the anterolateral wall. He subsequently was recommended to undergo cardiac catheterization. This revealed three-vessel CAD with subtotal occlusion of the circumflex coronary artery. He then underwent PCI of the mid to distal circumflex with a 2.5 x 15 mm Xience drug-eluting stent, 2.25 x 18 mm Xience drug-eluting stent and 2.0 x 8 mm Marion drug-eluting stent. The patient was seen and examined morning of discharge and is feeling well. Overall he states he is feeling better since having stenting done. His breathing has improved and he feels he has more energy. Denies any chest discomfort, shortness of breath, dizziness, palpitations, orthopnea or PND. Prior CVA has affected his right side. PHYSICAL EXAMINATION: HEENT: Head is atraumatic, normocephalic. Pupils equal, round. Neck is supple. There is no elevated jugular venous pressure. HEART EXAMINATION: Heart sounds irregular rate and rhythm, S1 and S2 normal. No murmur or gallop heard. CHEST EXAMINATION: Lungs are clear to auscultation and precussion. No chest wall tenderness is noted on palpation or with deep breathing. Right hemodialysis cath noted ABDOMEN: Soft, nontender. Bowel sounds are heard. No organomegaly noted. EXTREMITIES: 2+ peripheral pulses with evidence of mild right pedal edema and no calf tenderness noted. Right femoral artery puncture site soft, clean, dry and intact. No evidence of ecchymosis or hematoma.. NEUROLOGIC patient is awake, alert and oriented x3. Assessment #1 CAD, status post PCI involving the mid to distal circumflex #2 atrial fibrillation #3 hypertension #4 hyperlipidemia #5 chronic kidney disease currently on hemodialysis The patient will be discharged home today. He'll be discharged on Eliquis, Plavix, atenolol, isosorbide, and Lasix as well as other current noncardiac medications. We will increase the atorvastatin. He will follow-up in the office in about a week with Dr. Boyd. [employer] note has been reviewed, I agree with a documented findings and plan of care. Patient was seen and examined. Patient Condition at Discharge: Stable Plan - Discharge Summary Discharge Rx Participant: No New Discharge Prescriptions: New Aspirin 81 mg PO DAILY Clopidogrel [Plavix] 75 mg PO DAILY #90 tab Atorvastatin [Lipitor] 40 mg PO HS #90 tab Continue allopurinoL [Zyloprim] 200 mg PO DAILY Glimepiride [Amaryl] 1 mg PO BID Cholecalciferol [Vitamin D3 (25 Mcg = 1000 Iu)] 50 mcg PO BID Gabapentin [Neurontin] 200 mg PO HS atenoloL 25 mg PO BID Acetaminophen Tab [Tylenol] 1,000 mg PO Q4H PRN PRN Reason: Pain Sennosides [Senokot] 8.6 mg PO DAILY PRN PRN Reason: Constipation Gabapentin [Neurontin] 100 mg PO DAILY@1200 PRN PRN Reason: nerve pain Isosorbide Mononitrate ER [Imdur] 30 mg PO DAILY #30 tablet Omeprazole [PriLOSEC] 20 mg PO DAILY Furosemide [Lasix] 40 mg PO BID calcitrioL [Calcitriol] 0.5 mcg PO MOWEFR Nitroglycerin Sl Tabs [Nitrostat] 0.4 mg SUBLINGUAL Q5M PRN PRN Reason: Chest Pain Vit B Complx C/Folic Acid/Zinc [Renaplex Tablet] 1 tab PO DAILY Apixaban [Eliquis] 2.5 mg PO BID Discontinued Aspirin 81 mg PO DAILY PRN PRN Reason: Mild Pain Atorvastatin [Lipitor] 10 mg PO HS Discharge Medication List Cholecalciferol [Vitamin D3 (25 Mcg = 1000 Iu)] 50 mcg PO BID 11/13/20 [History] Furosemide [Lasix] 40 mg PO BID 11/13/20 [History] Gabapentin [Neurontin] 200 mg PO HS 11/13/20 [History] Glimepiride [Amaryl] 1 mg PO BID 11/13/20 [History] Omeprazole [PriLOSEC] 20 mg PO DAILY 11/13/20 [History] allopurinoL [Zyloprim] 200 mg PO DAILY 11/13/20 [History] atenoloL 25 mg PO BID 11/13/20 [History] calcitrioL [Calcitriol] 0.5 mcg PO MOWEFR 11/13/20 [History] Acetaminophen Tab [Tylenol] 1,000 mg PO Q4H PRN 05/07/21 [History] Nitroglycerin Sl Tabs [Nitrostat] 0.4 mg SUBLINGUAL Q5M PRN 05/07/21 [History] Sennosides [Senokot] 8.6 mg PO DAILY PRN 05/07/21 [History] Vit B Complx C/Folic Acid/Zinc [Renaplex Tablet] 1 tab PO DAILY 05/07/21 [History] Gabapentin [Neurontin] 100 mg PO DAILY@1200 PRN 06/07/21 [History] Isosorbide Mononitrate ER [Imdur] 30 mg PO DAILY #30 tablet 06/09/21 [Rx] Apixaban [Eliquis] 2.5 mg PO BID 07/16/21 [History] Aspirin 81 mg PO DAILY 07/20/21 [Rx] Atorvastatin [Lipitor] 40 mg PO HS #90 tab 07/20/21 [Rx] Clopidogrel [Plavix] 75 mg PO DAILY #90 tab 07/20/21 [Rx] Follow up Appointment(s)/Referral(s): Malik Boyd MD [STAFF PHYSICIAN] - 07/26/21 8:30 am (Thursday at 8:30 AM for follow up appt) Discharge Disposition: HOME SELF-CARE
[2021-07-20] MEDS ORDERED: ATORVASTATIN 40 MG TAB PO SCH (21:00)
== END 2021-07-20 13:30 | disposition home or self-care (01) ==
LOC: CATHCVL 05:51 → 6NMEDSUR 10:21 → CATHCVL 07-20 13:30
PROVIDERS: ATTEND Internal Medicine Cardiovascular Disease
DX: R94.39 Abnormal result of other cardiovascular function study (principal); I21.9 Acute myocardial infarction, unspecified; Z20.822 Contact with and (suspected) exposure to COVID-19
CPT/HCPCS: 93458 ×2; 80048; 82565; 84100; 85025; 87635; G0257; C9600; C1769 ×2; C1760; C1887 ×2; C1725; C1894; C1874 ×3; J2250; J0360; J2001; J1644; Q9967 ×2; 90935

== ENCOUNTER 2021-09-27 06:21 | Day surgery (SDC) | payer MEDICARE, BC ==
[2021-09-26 09:22] VITALS: BMI 37.4
[~2021-09-27 06:21] MED LIST changes: +DEXAMETHASONE SOD PHOSPHATE 4 MG/ML 1 ML VIAL IV ONE; +LACTATED RINGERS 1,000 ML IV SCH; +MIDAZOLAM 2 MG/2 ML VIAL IV PRN; +ONDANSETRON 4 MG/2 ML VIAL IVP ONE; +SCOPOLAMINE 1 MG/72 HR PATCH TRANSDERM ONE
[2021-09-27] MEDS ORDERED: HYDROmorphone 0.5 MG/0.5 ML SYRINGE IVP PRN (07:00)
--- NOTE | 2021-09-27 07:12 | P.GSHP ---
History of Present Illness H&P Date: 09/27/21 Chief Complaint: Renal failure 60-year-old male here today for peritoneal dialysis catheter placement. Patient known to our service fairly well. Had his dialysis catheter removed because of a exit site infection last year. He was switched over to hemodialysis. Recently he has had increasing issues with hemodialysis access sites. Despite being on Plavix we were asked to replace his catheter on a semiurgent basis given his difficulties with hemodialysis access. Previous catheter was in the right lower abdomen. Past Medical History Past Medical History: Atrial Fibrillation, CVA/TIA, Diabetes Mellitus, Eye Disorder, GERD/Reflux, Hyperlipidemia, Hypertension, Myocardial Infarction ([place]), Renal Disease, Sleep Apnea/CPAP/BIPAP Additional Past Medical History / Comment(s): CVA 03/28/21 reulting in brain bleed, impaired speech,right side paralysis , patient in wheelchair, can pivot with help. 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 GOUT, renal failure, dialysis MOWEFR. RENAL FAILURE NO CPAP. Last Myocardial Infarction Date:: , 06/06/21 History of Any Multi-Drug Resistant Organisms: None Reported Past Surgical History: Bariatric Surgery, Heart Catheterization Additional Past Surgical History / Comment(s): GASTRIC SLEEVE 03/2013, EGD, Hemodialysis catheter placement. peritoneal catheter inserted and removed , ANOTHER HEMOCATH PLACED AT [facility] 09/15/21 Past Anesthesia/Blood Transfusion Reactions: No Reported Reaction Additional Past Anesthesia/Blood Transfusion Reaction / Comment(s): DIFFICULT INTUBATION - FIRST ATTEMPT AT BARIATRIC SURGERY WAS CANCELLED BECAUSE OF IT. LATER ATTRITUBTED TO [facility]ESITY, PT WAS OVER 300LBS. Smoking Status: Former smoker - Past Family History Mother Family Medical History: Cancer, Congestive Heart Failure (CHF) Father Family Medical History: Congestive Heart Failure (CHF), Diabetes Mellitus, Renal Disease Medications and Allergies Home Medications Medication Instructions Recorded Confirmed Type Cholecalciferol [Vitamin D3 (25 50 mcg PO BID 11/13/20 09/26/21 History Mcg = 1000 Iu)] Furosemide [Lasix] 40 mg PO BID 11/13/20 09/26/21 History Gabapentin [Neurontin] 200 mg PO HS 11/13/20 09/26/21 History Glimepiride [Amaryl] 1 mg PO BID 11/13/20 09/26/21 History Omeprazole [PriLOSEC] 20 mg PO DAILY 11/13/20 09/26/21 History allopurinoL [Zyloprim] 200 mg PO DAILY 11/13/20 09/26/21 History atenoloL 12.5 mg PO DAILY 11/13/20 09/26/21 History calcitrioL [Calcitriol] 0.5 mcg PO MOWEFR 11/13/20 09/26/21 History Acetaminophen Tab [Tylenol] 1,000 mg PO Q4H PRN 05/07/21 09/26/21 History Nitroglycerin Sl Tabs [Nitrostat] 0.4 mg SUBLINGUAL Q5M PRN 05/07/21 09/26/21 History Sennosides [Senokot] 8.6 mg PO DAILY PRN 05/07/21 09/26/21 History Vit B Complx C/Folic Acid/Zinc 1 tab PO DAILY 05/07/21 09/26/21 History [Renaplex Tablet] Gabapentin [Neurontin] 100 mg PO DAILY@1200 PRN 06/07/21 09/26/21 History Isosorbide Mononitrate ER [Imdur] 30 mg PO DAILY #30 tablet 06/09/21 09/26/21 Rx Apixaban [Eliquis] 2.5 mg PO BID 07/16/21 09/26/21 History Atorvastatin [Lipitor] 40 mg PO HS #90 tab 07/20/21 09/26/21 Rx Clopidogrel [Plavix] 75 mg PO DAILY #90 tab 07/20/21 09/26/21 Rx Midodrine [ProAmatine] 5 mg PO DAILY PRN 09/26/21 09/26/21 History Allergies Allergy/AdvReac Type Severity Reaction Status Date / Time aprepitant [From Emend] Allergy Swelling Verified 09/26/21 09:03 bee venom protein (honey bee) Allergy Anaphylaxis Verified 09/26/21 09:03 fosaprepitant [From Emend] Allergy Swelling Verified 09/26/21 09:03 iodine Allergy Swelling Verified 09/26/21 09:03 Iodine and Iodide Containing Allergy HEADACHES, Verified 09/26/21 09:03 Produc SINUS PROBLEM, NASAL DRAINAGE Penicillins Allergy Unknown Verified 09/26/21 09:03 Childhood Surgical - Exam Physical exam: General: Well-developed, well-nourished HEENT: Normocephalic, sclerae nonicteric Abdomen: Nontender, nondistended Extremities: Mild bilateral lower extremity edema Neuro: Alert and oriented Assessment and Plan (1) ESRD (end stage renal disease) on dialysis Narrative/Plan: 60-year-old male with renal failure. We'll proceed with peritoneal dialysis catheter placement at this time. Risks of bleeding, infection, poor function, leak, abscess, hernia, anesthesia related complications reviewed. He understands and wishes to proceed. Current Visit: No Status: Acute Code(s): N18.6 - END STAGE RENAL DISEASE; Z99.2 - DEPENDENCE ON RENAL DIALYSIS SNOMED Code(s): 805641036
[2021-09-27] MEDS ORDERED: LIDOCAINE 1% (10MG/ML) FOR IV START INTRADERMA ONE (07:15)
[2021-09-27 07:28] LABS: Glucose,Whole Blood 96 mg/dL (75-99)
[2021-09-27] MEDS ORDERED: SODIUM CHLORIDE 0.9% 500 ML 500 ML IV ONE (07:28)
[2021-09-27] MEDS ORDERED: PROPOFOL 10 MG/ML 20 ML VIAL IV ONE (07:40)
[2021-09-27] MEDS ORDERED: MIDAZOLAM 2 MG/2 ML VIAL ONE (07:40)
[2021-09-27] MEDS ORDERED: fentaNYL (PF) 50 MCG/ML 2 ML AMP ONE (07:40)
[2021-09-27] MEDS ORDERED: KETAMINE 10 MG/ML 20 ML VIAL ONE (07:40)
[2021-09-27] MEDS ORDERED: SODIUM CHLORIDE 0.9% 50 ML with CLINDAMYCIN 600 MG IV ONE ×2 (08:04)
[2021-09-27] MEDS ORDERED: BUPIVACAIN-EPI 0.25%-1:200,000 30 ML VIAL SQ ONE ×2 (08:09)
[2021-09-27] MEDS ORDERED: MINERAL OIL 1 APPLIC/ML OIL MISCELLANE ONE (08:09)
[2021-09-27] MEDS ORDERED: NALOXONE 0.4 MG/ML 1 ML VIAL IV PRN (08:49)
--- NOTE | 2021-09-27 08:50 | P.OP ---
Date of Procedure: 09/27/21 Procedure(s) Performed: PREOPERATIVE DIAGNOSIS: Renal failure POSTOPERATIVE DIAGNOSIS: Same PROCEDURE: Peritoneal dialysis catheter insertion SURGEON: Luz EBL: 10 mL ANESTHESIA: Sedation plus local COMPLICATIONS: None OPERATIVE PROCEDURE: The patient was placed in the operative table in the supine position. The abdomen was prepped and draped in usual sterile fashion. A small vertical incision was made in the left periumbilical location. Dissection down through the subcutaneous tissues took place using electrocautery. The anterior rectus was divided vertically using the scalpel. The rectus was bluntly. The posterior rectus was visualized. A small bleeding vessel in the rectus was controlled using the clip solution strategist. No further bleeding was seen during the case. An 0 Vicryl pursestring was placed. A small opening in the posterior rectus fascia and peritoneum took place using a Metzenbaum scissors. There were no adhesions to the suture that was placed. The pigtail catheter was advanced into the pelvis over a stylette. No resistance was met. The inner cuff was secured to the fascia using the 0 Vicryl pursestring that was placed. The catheter was tunneled to an exit site in the left lateral lower quadrant. The catheter was connected to the 1 L bag of saline and approximated 800 mL of saline was easily introduced into the peritoneal cavity. The fluid was then allowed to evacuate. The majority of the fluid was returned. The anterior rectus fascia was then reapproximated using a running 0 Vicryl stitch. The subcutaneous tissues reprepped using 3-0 Vicryl sutures and the skin using 4-0 Monocryl sutures. The outpatient dialysis adapter was applied to the end of the catheter. Sterile dressings were then applied after skin glue was placed over the incision. DISPOSITION: Stable to recovery room
[2021-09-27 08:58] VITALS: TEMP 96.8
[2021-09-27 10:09] VITALS: BP 124/69; PULSE 83; RESP 20
== END 2021-09-27 10:27 | disposition home or self-care (01) ==
LOC: OR 06:21
PROVIDERS: ATTEND Surgery
DX: E11.22 Type 2 diabetes mellitus with diabetic chronic kidney disease (principal); I12.0 Hypertensive chronic kidney disease with stage 5 chronic kidney disease or end stage renal disease; N18.6 End stage renal disease; E11.319 Type 2 diabetes mellitus with unspecified diabetic retinopathy without macular edema; E11.40 Type 2 diabetes mellitus with diabetic neuropathy, unspecified; I48.91 Unspecified atrial fibrillation; Z99.2 Dependence on renal dialysis; I69.951 Hemiplegia and hemiparesis following unspecified cerebrovascular disease affecting right dominant side; I69.928 Other speech and language deficits following unspecified cerebrovascular disease; H54.8 Legal blindness, as defined in USA; K21.9 Gastro-esophageal reflux disease without esophagitis; E78.5 Hyperlipidemia, unspecified; I25.2 Old myocardial infarction; M10.9 Gout, unspecified; G47.33 Obstructive sleep apnea (adult) (pediatric); Z99.3 Dependence on wheelchair; Z98.84 Bariatric surgery status; Z87.891 Personal history of nicotine dependence; Z79.899 Other long term (current) drug therapy; Z79.84 Long term (current) use of oral hypoglycemic drugs; Z79.01 Long term (current) use of anticoagulants; Z79.02 Long term (current) use of antithrombotics/antiplatelets; Z91.030 Bee allergy status; Z88.0 Allergy status to penicillin; Z88.8 Allergy status to other drugs, medicaments and biological substances; Z91.048 Other nonmedicinal substance allergy status; Z80.9 Family history of malignant neoplasm, unspecified; Z82.49 Family history of ischemic heart disease and other diseases of the circulatory system; Z83.3 Family history of diabetes mellitus
CPT/HCPCS: 49421; C1752; J2250; J1100; J2405; J3010; J2704; J1644

== ENCOUNTER → 2021-12-31 | Outpatient (CLI) | payer MEDICARE, BC | END | disposition home or self-care (01) | LOC: LABWHC1 08:59 | PROVIDERS: ATTEND Internal Medicine Nephrology | DX: Z53.9 Procedure and treatment not carried out, unspecified reason (principal) ==

== ENCOUNTER → 2022-03-11 | Outpatient (CLI) | payer MEDICARE, BC | END | disposition home or self-care (01) | LOC: LABWHC1 07:43 | PROVIDERS: ATTEND Internal Medicine Nephrology | DX: Z53.9 Procedure and treatment not carried out, unspecified reason (principal) ==